=== PATIENT | female | born 1990 | race Caucasian/White ===

== ENCOUNTER 2024-05-05 20:46 | Emergency (ER) | payer BC, SELFPAY ==
--- NOTE | ~2024-05-05 | US_ITS ---
EXAMINATION: US OB <=14 wk fetus w TV INDICATION: indeterminant location; r/o ectopic TECHNIQUE: Sonography of the pelvis was performed by transabdominal and transvaginal techniques. COMPARISON: None. RESULT: Uterus: 8.2 x 4.4 x 5.9 cm. Anteverted. Complex fluid in the endometrial cavity at the right cornua. Fluid in the cervical canal likely representing blood. Homogenous myometrium. Intrauterine gestational sac: Not seen. Right ovary: 3.8 x 2.3 x 2.6 cm. Vascular flow is present. No adnexal mass. Left ovary: Left ovary not visualized. No adnexal mass. Pelvis free fluid: None. IMPRESSION: of unknown location. No sonographic evidence of ectopic . Complex endometrial fluid may represent hemorrhage with or without a very small gestational sac. Recommend continued clinical and sonographic follow-up. Reviewed, dictated and finalized at [facility] K. LOPMENT SYSTEM EFFICIENCY MANAGER
[2024-05-05 20:55] VITALS: BP 156/102; PULSE 93; RESP 14; TEMP 36.4; O2SAT 97
[2024-05-05 21:49] LABS: Basophils Absolute Auto 0.1 K/mm3 (0.0-0.1); Basophils Percent Auto 0.5 % (0.2-1.2); Eosinophils Absolute Auto 0.2 K/mm3 (0-0.3); Eosinophils Percent Auto 1.5 % (0-4.4); Hematocrit 40.4 % (37.0-47.0); Hemoglobin 13.1 g/dL (12.0-15.0); Immature Granulocyte Absolute 0.06 K/mm3 (0.00-0.031); Immature Granulocyte Percent A 0.4 % (0-0.5); Lymphocytes Absolute Auto 4.11 K/mm3 (0.9-3.2); Lymphocytes Percent Auto 26.3 % (18.3-44.2); Mean Corpuscular HGB Conc 32.4 g/dl (32-36); Mean Corpuscular Hemoglobin 28.1 pg (26-34); Mean Corpuscular Volume 86.5 fl (80-100); Mean Platelet Volume 9.9 fl (7.4-10.4); Monocytes Absolute Auto 1.3 K/mm3 (0.1-0.6); Monocytes Percent Auto 8.1 % (2.6-8.5); Neutrophils Absolute Auto 9.9 K/mm3 (1.3-6.7); Neutrophils Percent Auto 63.2 % (45.5-73.1); Platelet Count Result 271 k/mm3 (150-375); Red Blood Count 4.67 M/mm3 (4.2-5.4); Red Cell Distribution Width 16.6 % (11.5-14.5); White Blood Count 15.6 K/mm3 (4.5-10.0)
[2024-05-05] MEDS: Please add drug allergy info to patient profile. 1 EACH XX (21:49)
[2024-05-05] MEDS: ACETAMINOPHEN 500 MG TABLET 1000 MG PO (21:49)
[2024-05-05 21:51] LABS: BEDSIDEPREGUCG Positive (Negative)
[2024-05-05 21:53] LABS: Add Urine Microscopic? YES; Appearance Urine Clear (Clear); Bacteria Urine None Seen /hpf; Bilirubin Urine Negative (Negative); Blood Urine Negative (Negative); Color Urine Yellow (Yellow); Glucose Urine UA Negative (Negative); Ketones Urine Negative (Negative); Leukocyte Esterase Ur Trace LEU/UL (Negative); Nitrate Urine Negative (Negative); Non Pathogenic Casts 0-2; Protein Urine Negative (Negative); RBC Urine 0-2 /hpf (0-2); Specific Grav Ur 1.012 (1.001-1.035); Squamous Epithelial Cell Urine Occasional /hpf (Few); Urobilinogen Urine 0.2 mg/dL (<2.0); WBC Urine 0-5 /hpf (0-3)
[2024-05-05 22:00] LABS: INR 1.1; Prothrombin Time 14.6 Seconds (11.1-14.7)
[2024-05-05 22:01] LABS: Alanine Aminotransferase 20 U/L (6-35); Albumin Level 4.1 g/dL (3.5-5.1); Alkaline Phosphatase 51 U/L (38-126); Anion Gap 5 mmol/L (4-12); Aspartate Amino Transferase 23 U/L (14-36); Bilirubin,Total 0.2 mg/dL (0.2-1.3); Blood Urea Nitrogen 5 mg/dL (7-17); Calcium 8.9 mg/dL (8.4-10.2); Carbon Dioxide 27 mmol/L (22-30); Chloride 105 mmol/L (98-107); Estimated CRCL calculation 141 ml/min; Estimated Glomerular Filt Rate > 60; Glucose 207 mg/dL (65-110); Partial Thromboplastin Time 26.6 Seconds (22.3-36.8); Potassium 3.5 mmol/L (3.4-5.0); Sodium 137 mmol/L (137-145)
--- NOTE | 2024-05-05 22:11 | ED.ABDPAIN ---
HPI - Abdominal Pain General Chief Complaint: Abdominal Pain Stated Complaint: abd pain Time Seen by Provider: 05/05/24 21:28 Source: patient and other ( Friend) Mode of arrival: ambulatory Limitations: no limitations History of Present Illness HPI narrative: female who has last menstrual period was at the end of January/beginning of February (history of PCOS). she had presented to [facility] 2 weeks ago and beta hCG testing performed which was only slightly positive (49); no ultrasound evidence of IUP however. approximately 5:30 p.m. she started having pain below her umbilicus Somewhat acutely. She states it feels like period cramps and radiates down into her low abdomen /pelvis. Her OB Gyne is Dr. Her nava whom she is supposed to see on . She has a history of a hernia. She denies any vaginal bleeding or discharge. She has been nauseated and vomited twice with the last 1 occurring at 7:30 p.m.. No blood. Her last bowel movement was this morning and she denies any diarrhea, constipation, or bloody stool. She denies any dysuria or urgency but she has been having frequency. No hematuria. She denies any fevers but she does feel chilled although she states that this is chronic and she always feels cold. 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 HEAD: Normocephalic, atraumatic. EYES: Non injected, non icteric ENT: Nares clear, no rhinorrhea or epistaxis. NECK: Supple. CHEST: Speaking in full sentences. No respiratory distress. HEART: Regular rate and rhythm. . ABDOMEN: obese /protuberant but otherwise Soft, nondistended. no rigidity or guarding. Not peritoneal. EXTREMITIES: Normal range of motion. No lower extremity edema. SKIN: Warm, dry, no rash. NEURO: No focal deficits. Alert and oriented x3. PSYCH: Normal mood and affect. Course Vital Signs Vital signs: Vital Signs Temperature 97.5 F L 05/05/24 20:55 Pulse Rate 93 05/05/24 20:55 Respiratory Rate 14 05/05/24 20:55 Blood Pressure 156/102 H 05/05/24 20:55 Pulse Oximetry 97 05/05/24 20:55 Oxygen Delivery Room Air 05/05/24 20:55 Temperature 97.5 F L 05/05/24 20:55 Pulse Rate 74 05/05/24 22:59 Respiratory Rate 14 05/05/24 22:59 Blood Pressure 133/92 H 05/05/24 22:59 Pulse Oximetry 100 05/05/24 22:59 Oxygen Delivery Room Air 05/05/24 20:55 MDM - Abdominal Pain MDM Narrative Medical decision making narrative: This is a 33 yo patient with LMP end of Jan/beginning of February presenting with sudden onset crampy abdominal pain. Associated with nausea and vomiting. In the emergency department she is afebrile with vital signs notable for hypertension. Differential diagnosis Considered ectopic , spectrum of miscarriage/ (threatened, inevitable, incomplete, complete, septic) as well as causes of female-specific abdominal pain unrelated to (e.g., pelvic inflammatory disease with or without tubo-ovarian abscess, Bapo-Nlpk-Duqvde, UTI, ovarian torsion, etc.). Also considered causes of abdominal pain that are not gender-specific (e.g., appendicitis, volvulus, small bowel obstruction, mesenteric adenitis, nephrolithiasis, acute cholecystitis/choledocholithiasis and other biliary pathology, etc.). Patient well-appearing with relatively normal vital signs. Abdomen otherwise soft and nonperitonitic. Will give her 1g Tylenol and f/u on CBC and CMP. Her workup did show a white count. No electrolyte abnormalities. No e/o renal injury. UA without evidence of infection or stone. Hyperglycemia without anion gap or acidosis. For consideration of ectopic , the quantitative beta hCG was above the discriminatory zone of 1,500 mIU/mL. Ultrasound demonstrated neither clear ectopic nor identifiable intrauterine . On reassessment, the patient appears well, and reports feeling better after 1g Tylenol. Her vitals remained stable. My suspicion for acute abdomen is quite low and she was given strict return precautions for vaginal bleeding or discharge, dysuria, hematuria, fever (temperature above 100.4F) or chills, lightheadedness/syncope, intractable n/v, inability to tolerate PO, intractable pain. She will f/u with her OBGYN at her already scheduled appointment Saturday (<48 hours) and will be given a prescription for Tylenol and Colace as well as doxylamine for nausea. All other questions answered, patient is amenable to plan. Lab Data Attestation: I reviewed the patient's lab results. Lab results narrative: Leukocytosis 05/05/24 21:42 05/05/24 21:42 Labs: Lab Results 05/05/24 05/05/24 Range/Units 21:42 21:49 WBC 15.6 H (4.5-10.0) K/mm3 RBC 4.67 (4.2-5.4) M/mm3 Hgb 13.1 (12.0-15.0) g/dL Hct 40.4 (37.0-47.0) % MCV 86.5 (80-100) fl MCH 28.1 (26-34) pg MCHC 32.4 (32-36) g/dl RDW 16.6 H (11.5-14.5) % Plt Count 271 (150-375) k/mm3 MPV 9.9 (7.4-10.4) fl Immature Gran % (Auto) 0.4 (0-0.5) % Neut % (Auto) 63.2 (45.5-73.1) % Lymph % (Auto) 26.3 (18.3-44.2) % [place] % (Auto) 8.1 (2.6-8.5) % Eos % (Auto) 1.5 (0-4.4) % Baso % (Auto) 0.5 (0.2-1.2) % Lymph # (Auto) 4.11 H (0.9-3.2) K/mm3 [place] # (Auto) 1.3 H (0.1-0.6) K/mm3 Eos # (Auto) 0.2 (0-0.3) K/mm3 Baso # (Auto) 0.1 (0.0-0.1) K/mm3 Abs Immat Gran (auto) 0.06 H (0.00-0.031) K/mm3 Absolute Neuts (auto) 9.9 H (1.3-6.7) K/mm3 Absolute Nucleated RBC 0.000 (0.0-0.012) K/mm3 Nucleated RBC % 0.0 (0.0-0.2) % PT 14.6 (11.1-14.7) Seconds INR 1.1 APTT 26.6 (22.3-36.8) Seconds Sodium 137 (137-145) mmol/L Potassium 3.5 (3.4-5.0) mmol/L Chloride 105 (98-107) mmol/L Carbon Dioxide 27 (22-30) mmol/L Anion Gap 5 (4-12) mmol/L BUN 5 L (7-17) mg/dL Creatinine 0.60 L (0.7-1.0) mg/dL Estim Creat Clear Calc 141 ml/min Estimated GFR > 60 (59 - ) Glucose 207 H (65-110) mg/dL Calcium 8.9 (8.4-10.2) mg/dL Total Bilirubin 0.2 (0.2-1.3) mg/dL AST 23 (14-36) U/L ALT 20 (6-35) U/L Alkaline Phosphatase 51 (38-126) U/L Total Protein 7.0 (6.3-8.2) g/dL Albumin 4.1 (3.5-5.1) g/dL Beta HCG, Quant 68154.00 mIU/ML Urine Color Yellow (Yellow) Urine Appearance Clear (Clear) Urine pH 6.0 (5.0-9.0) Ur Specific [place] 1.012 (1.001-1.035) Urine Protein Negative (Negative) mg/dL Urine Glucose (UA) Negative (Negative) mg/dL Urine Ketones Negative (Negative) mg/dL Ur Blood (Man) Negative (Negative) Urine Nitrate Negative (Negative) Urine Bilirubin Negative (Negative) Urine Urobilinogen 0.2 (<2.0) mg/dL Leukocyte Esterase Rfl Trace H (Negative) WILLIAM/UL Urine RBC 0-2 (0-2) /hpf Urine WBC 0-5 (0-3) /hpf Ur Squamous Epith Cells Occasional (Few) /hpf Urine Bacteria None seen /hpf Urine Casts 0-2 POC Urine HCG, Qual Positive (Negative) Imaging Data Radiologist's impression: ITS Impressions Obstetrics Ultrasound 05/05/24 23:32 IMPRESSION: of unknown location. No sonographic evidence of ectopic . Complex endometrial fluid may represent hemorrhage with or without a very small gestational sac. Recommend continued clinical and sonographic follow-up. Discharge Plan Discharge Clinical Impression: Abdominal pain during , Leukocytosis, Hyperglycemia, of unknown anatomic location, Nausea/vomiting in Patient Disposition: Home, Self-Care Condition: Stable Instructions: Antibiotic Form, Nausea and Vomiting in (ED), Leukocytosis (ED), Nondiabetic Hyperglycemia (ED), Abdominal Pain in (ED) Additional Instructions: As we discussed, this remains a of indeterminate/unknown location. Keep your appointment with Dr Pollard. Your beta HCG today was 31398. Return to the ED if vaginal bleeding or discharge, burning/pain with urination, blood in your urine, fever (temperature above 100.4F), lightheadedness/fainting, intractable nausea/vomiting, inability to tolerate fluids, or intractable pain not responding to acetaminophen/Tylenol (maximum 4000mg/day). You can take the Doxil a mean/pyridoxine if she continued to have nausea and vomiting and use the Colace for constipation. Continue to take her vitamin. Patient Language: Micronesian Prescriptions: New acetaminophen 500 mg capsule 1,000 mg PO Q6H PRN (Reason: pain) Qty: 30 0RF docusate sodium [Colace] 100 mg capsule 100 mg PO DAILY PRN (Reason: constipation) Qty: 30 0RF doxylamine-pyridoxine (vit B6) 10-10 mg tablet,delayed release (DR/EC) 1 tablet PO DAILY PRN (Reason: nausea and vomiting) Qty: 10 0RF Follow-up/Referrals: [facility] [Other] UNKNOWN,DOCTOR [Primary Care Provider] - Stand Alone Forms: Work/School Release IP Time of Disposition: 00:15
[2024-05-05] MEDS: ONDANSETRON INJ 4 MG/2 ML VIAL IV PUSH (22:56)
[2024-05-05 22:59] VITALS: BP 133/92; PULSE 74; RESP 14; O2SAT 100
== END 2024-05-06 00:30 | disposition home or self-care (01) ==
PROVIDERS: Emergency Provider Student in an Organized Health Care Education/Training Program
DX: O26.899 Other specified pregnancy related conditions, unspecified trimester (principal); R10.9 Unspecified abdominal pain; O21.0 Mild hyperemesis gravidarum
CPT/HCPCS: 36415; 76801; 76817; 80053; 81001; 81025; 84702; 85025; 85610; 85730; 96374; 99284; A9270; J2405

== ENCOUNTER 2024-05-07 15:19 | Outpatient (CLI) | payer BC, SELFPAY | END 2024-05-07 15:20 | disposition home or self-care (01) | LOC: ANHLAB 15:21 | PROVIDERS: Visit Provider Student in an Organized Health Care Education/Training Program | DX: O36.80X0 Pregnancy with inconclusive fetal viability, not applicable or unspecified (principal); Z3A.00 Weeks of gestation of pregnancy not specified | CPT/HCPCS: 36415; 84702 ==

== ENCOUNTER 2024-05-13 15:10 | Outpatient (CLI) | payer BC, SELFPAY ==
--- NOTE | ~2024-05-13 | US_ITS ---
EXAMINATION: US OB <=14 wk fetus w TV DATE: 05/13/2024 15:54 INDICATION: Irregular periods with indeterminate last menstrual period. TECHNIQUE: Real-time pelvic ultrasound utilizing both a transvaginal and transabdominal probe was pe rformed. The interpreting radiologist was not present for the study. COMPARISON: 05/05/2024 FINDINGS: The uterus measures 9.0 x 5.3 x 9.8 cm. There is an intrauterine gestational sac. A yolk sac and fet al pole are identified. The crown rump length measures 9 mm, which correlates with an estimated gesta tional age of 6 weeks and 6 days. heart motion is identified measuring 137 beats per minute (bp m) by M-mode Doppler. Small hypoechoic subchorionic hematoma measuring 13 x 8 x 6 mm. The right ovary measures 2.7 x 2.5 x 2.3 cm. After flow identified in the right ovary on color Dopple r. The left ovary is not visualized. There is no free fluid in the pelvis. IMPRESSION: 1. Single living fetus with heart rate of 137 bpm. 2. Gestational age by ultrasound of 6 weeks 6 day(s) +/- 4 day(s) with ultrasound estimated date of delivery (JOHANA) of 12/31/2024. Reviewed, dictated and finalized at location A. LITY DESIGNER IMPRESSION: 1. Single living fetus with heart rate of 137 bpm. 2. Gestational age by ultrasound of 6 weeks 6 day(s) +/- 4 day(s) with ultraso und estimated date of delivery (JOHANA) of 12/31/2024.
== END 2024-05-13 15:11 | disposition home or self-care (01) ==
PROVIDERS: PCP Student in an Organized Health Care Education/Training Program; Visit Provider Student in an Organized Health Care Education/Training Program
DX: N92.6 Irregular menstruation, unspecified (principal); Z3A.01 Less than 8 weeks gestation of pregnancy
CPT/HCPCS: 76801; 76817

== ENCOUNTER 2024-06-07 00:33 | Emergency (ER) | payer BC, SELFPAY ==
[2024-06-07 00:37] VITALS: BP 153/96; PULSE 94; RESP 20; TEMP 36.6; O2SAT 100
--- NOTE | 2024-06-07 01:26 | PC.NURSE ---
Patient comes to this RN as this RN was obtaining VS on another patient. Patient asking how long the wait is. This RN informed patient that wait times are unable to be given but she was triaged and patients go back based on acuity. patient stated I am just going to go to [place], I can't wait that long. Patient left ED before risks of leaving before being evaluated by a provider and benefits of staying for evaluation could be given. patient and her visitor left ED with a steady gait, marked as left without being seen, triaged.
== END 2024-06-07 01:30 | disposition left against medical advice (07) ==
LOC: ANHED 02:08
PROVIDERS: Emergency Provider Physician Assistant; PCP Student in an Organized Health Care Education/Training Program
DX: N93.9 Abnormal uterine and vaginal bleeding, unspecified (principal)
CPT/HCPCS: 99199

== ENCOUNTER 2024-06-09 08:54 | Emergency (ER) | payer OTHER, BC, SELFPAY ==
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
[2024-06-09 08:56] VITALS: BP 152/84; PULSE 91; RESP 16; TEMP 36.6; O2SAT 100
[2024-06-09 09:13] LABS: Basophils Absolute Auto 0.1 K/mm3 (0.0-0.1); Basophils Percent Auto 0.6 % (0.2-1.2); Eosinophils Absolute Auto 0.2 K/mm3 (0-0.3); Eosinophils Percent Auto 1.8 % (0-4.4); Hematocrit 41.3 % (37.0-47.0); Hemoglobin 13.9 g/dL (12.0-15.0); Immature Granulocyte Absolute 0.04 K/mm3 (0.00-0.031); Immature Granulocyte Percent A 0.3 % (0-0.5); Lymphocytes Absolute Auto 2.43 K/mm3 (0.9-3.2); Lymphocytes Percent Auto 21.1 % (18.3-44.2); Mean Corpuscular HGB Conc 33.7 g/dl (32-36); Mean Corpuscular Hemoglobin 29.3 pg (26-34); Mean Corpuscular Volume 86.9 fl (80-100); Mean Platelet Volume 9.9 fl (7.4-10.4); Monocytes Absolute Auto 0.9 K/mm3 (0.1-0.6); Monocytes Percent Auto 7.7 % (2.6-8.5); Neutrophils Absolute Auto 7.9 K/mm3 (1.3-6.7); Neutrophils Percent Auto 68.5 % (45.5-73.1); Platelet Count Result 261 k/mm3 (150-375); Red Blood Count 4.75 M/mm3 (4.2-5.4); Red Cell Distribution Width 15.9 % (11.5-14.5); White Blood Count 11.5 K/mm3 (4.5-10.0)
[2024-06-09 09:25] LABS: Prothrombin Time 13.8 Seconds (11.1-14.7)
[2024-06-09 09:26] LABS: Partial Thromboplastin Time 25.6 Seconds (22.3-36.8)
[2024-06-09 09:29] LABS: Alanine Aminotransferase 18 U/L (6-35); Albumin Level 3.8 g/dL (3.5-5.1); Alkaline Phosphatase 51 U/L (38-126); Anion Gap 9 mmol/L (4-12); Aspartate Amino Transferase 19 U/L (14-36); Bilirubin,Total 0.4 mg/dL (0.2-1.3); Blood Urea Nitrogen 5 mg/dL (7-17); Calcium 8.9 mg/dL (8.4-10.2); Carbon Dioxide 22 mmol/L (22-30); Chloride 106 mmol/L (98-107); Estimated CRCL calculation 180 ml/min; Estimated Glomerular Filt Rate > 60; Glucose 163 mg/dL (65-110); Potassium 3.7 mmol/L (3.4-5.0); Sodium 137 mmol/L (137-145)
--- NOTE | 2024-06-09 09:30 | ECG_ITS ---
Test Date: 2024-06-09 09:42:30 Measurements Intervals [place] Rate: 81 P: 16 SC: 156 QRS: 5 QRSD: 93 T: 6 QT: 361 QTc: 419 Interpretive Statements SINUS RHYTHM No previous ECG available for comparison Electronically Signed On 06-09-2024 15:24:37 GAS APPLIANCE SERVICER by Ruth Camarena M.D.
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
[2024-06-09 10:06] LABS: Troponin I < 0.012 ng/mL (0.000-0.034)
[2024-06-09 10:22] VITALS: BP 153/96; PULSE 78; RESP 18; O2SAT 99
[2024-06-09] MEDS: ACETAMINOPHEN 500 MG TABLET 1000 MG PO (11:27)
[2024-06-09] MEDS: SODIUM CHLORIDE 0.9% IV 1,000 ML 999 ML IV CONT (11:27)
[2024-06-09 12:09] VITALS: BP 139/94; PULSE 80; RESP 17; O2SAT 100
== END 2024-06-09 13:04 | disposition home or self-care (01) ==
PROVIDERS: Emergency Medicine; Emergency Provider Physician Assistant; PCP Student in an Organized Health Care Education/Training Program
DX: R07.89 Other chest pain (principal); O99.331 Smoking (tobacco) complicating pregnancy, first trimester; F17.290 Nicotine dependence, other tobacco product, uncomplicated; Z3A.11 11 weeks gestation of pregnancy; V43.62XA Car passenger injured in collision with other type car in traffic accident, initial encounter
CPT/HCPCS: 36415; 71046; 76801; 80053; 84484; 84702; 85025; 85460; 85461; 85610; 85730; 86850; 86900; 86901; 93005; 96360; 99284; A9270; J7030

== ENCOUNTER 2024-06-16 07:28 | Outpatient (CLI) | payer BC, SELFPAY ==
--- OUTSIDE RECORDS SUMMARY | 2024-06-18 15:35 | XMS_ITS | Encounter Summary ---
Author Organization [facility] Address [address] [place] [address] Care Team Providers Care Dive Supervisor Name Role Phone Unknown, Provider Primary Care Provider Unavaila ble Reason for Visit * Reason Comments Diabetes Encounter Details Date Type Department Care Team (Latest Contact Info) Description 06/16/2024 10:20 AM BOILER ASSISTANT OPERATOR - 06/16/2024 11:59 PM BOILER ASSISTANT OPERATOR Hospital Encounter [facility] Women's Health Maternal & Care [address] [place] [address] Stu Gonzalez MD [address] [facility] [address] [place] [address] Discharge Disposition: Home or Self Care Social History Tobacco Use Types Packs/Day Years Used Date Smoking Tobacco: Never Assessed Estimated Date of Delivery Comme nts Yes 12/31/2024 Based on Ultraso und Sex and Gender Information Value Date Recorded Sex Assigned at Not on file Gender Identity Not on file Sexual Orientation Not on file documented as of this encounter Last Filed Vital Signs Vital Sign Reading Time Taken Comments Blood Pressure 138/87 06/16/2024 10:40 AM BOILER ASSISTANT OPERATOR Pulse 87 06/16/2024 10:40 AM BOILER ASSISTANT OPERATOR Temperature - - Respiratory Rate 18 06/16/2024 10:40 AM BOILER ASSISTANT OPERATOR Oxygen Saturation - - Inhaled Oxygen Concentration - - Weight 112 kg (247 lb) 06/16/2024 10:40 AM BOILER ASSISTANT OPERATOR Height - - Body Mass Index - - documented in this encounter Medications at Time of Discharge Medication Sig Dispensed Refills Start Date End Date blood glucose (OneTouch Verio) test stripIndications:Pre-exi sting type 2 diabetes mellitus during in first trimester (HCC) Use test strip to check Blood glucose four times daily. Check fasting glucose, and then one hour after each meal for breakfast, lunch, and dinner. 150 strip 10 06/16/2024 Lancets (ONETOUCH DELICA PLUS 33G EXTRA FINE LANCET)Indications:Pre-e xisting type 2 diabetes mellitus during in first trimester (HCC) Use lancet to check Blood glucose four times daily. Check fasting glucose, and then one hour after each meal for breakfast, lunch, and dinner. 150 Each 5 06/16/2024 NIFEdipine CR 24hr (Adalat CC) 30 MG tablet Take 1 (one) tablet by mouth once daily 06/10/2024 Vit-Fe Fumarate-FA ( VITAMIN PO) Take 1 tablet by mouth once daily documented as of this encounter Progress Notes * Nakia Johnson RN - 06/16/2024 11:46 AM CST Pt here for CDE visit. Pt reports feeling flutters of movement. Pt denies feeling contractions, or cramping. Denies loss of fluid, epigastric pain or unrelieved headaches. No edema noted at this time. Pt reports she has had some vaginal bleeding and she was seen in the ER and told she has asubchorionic hemorrhage. Pt's next OB visit is 06/30/24 Fht's per US - 166. Reviewed home meds with pt., pt states she is not checking her glucose and she has no logs. Pt reports that her hgbA1c was 4, but her recent lab draw on 06/10 her Hgb A1C was 6.8. Will try to obtain the lab results. ALEC Thompson in room to see pt. See CDE note. Pt has appt to follow up at this office on 06/30/24 Susie Pena - 06/16/2024 11:44 AM CST Haley Brambila is a 33 year old 11w5d Estimated Date of Delivery: 12/31/24 Patient seen today for Initial Diabetes Self-Management Education (DSME). She is a Co-Management consult from Dr. Deedee [facility]. Fetus: unknown History of Diabetes: Type 2 DM. Had been on Victoza for weight loss and lost over 60 lbs. A1c was ranging in the 4s. [place] in the summer of 2023 and stopped Victoza- most recent A1c 6.8 at OB 06/10/24. Does not have meter and has not been checking glucoses. 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 Live3s with SO and his parents. Insurance: [facility] Dietary Habits:continue to limit portions. Does eat dinner about an hour before bed each night. Physical Activity: walking around the office a lot as she is doing paperwork and making frequent trips to printer and back for light duty. Weight:247.2 lbs today Provided Verio meter and reviewed usage. Educated on insulin usage- Per Dr Gonzalez, send in logs with QID testing later this week to assess ifinsulin start is necessary. Knowledge/Skills presented: DM/GDM definition, physiology, increasing insulin resistance and requirement in , Importance and rationale of euglycemia in Blood glucose testing times, target values Hyperglycemia and hypoglycemia causes, symptoms, precautions and treatment Glucometer use- provided meter to patient. How to keep accurate records of blood glucose and food Food and BG logsheets were provided with clinic contact numbers Factors that affect blood glucose levels- food, activity, insulin type/amount, stress/illness Sources of CHO versus non-CHO; portion sizes; number of servings per meal; plate method; label reading; importance of eating 3 meals and 2-3 snacks Foods to avoid: juice, soda, cereal in the morning, sweets Insulin usage Sharps disposal Exercise benefits, guidelines and precautions. Instructed to begin 30 minutes walking daily if not contraindicated Ongoing follow up to reinforce and expand DSME Receptive to teaching and understanding of instructions: yes Plan: Test blood glucose fasting and 1 hour after each meal Keep detailed records of blood glucose, food, and exercise RTC for appointment [facility] 06/30/24 Send glucose logs on Monday 06/19 to bring to DM review and assess insulin needs if needed. Answered patient's questions. Patient states understanding of instructions provided. SUPPLIES: Diabetes and Manual Log sheets and contact information Glucometer: One Touch Verio Flex provided in clinic Glucometer strips and appropriate lancets to monitor QID, refill X5 Instructed to call if any problems obtaining glucometer supplies, medications or adhering to diabetes treatment plan. ER ASSISTANT OPERATOR documented in this encounter Plan of Treatment Upcoming Encounters Date Type Department Care Team (Late st Contact Info) Description 06/30/2024 8:15 AM BOILER ASSISTANT OPERATOR Appointment [facility] Maternal & Care [address] [place] [address] 06/30/2024 9:00 AM BOILER ASSISTANT OPERATOR Appointment [facility] Maternal & Care [address] [place] [address] 06/30/2024 9:45 AM BOILER ASSISTANT OPERATOR Appointment [facility] Maternal & Care [address] [place] [address] documented as of this encounter Visit Diagnoses Diagnosis Primigravida, antepartum (HCC)- Primary Type 2 diabetes mellitus without complication, unspecified whether terminal makeup operator insulin use (HCC) Chronic hypertension affecting (HCC) Obesity in (HCC) Obesity complicating , childbirth, or the puerperium, unspecified as to episode of care or not applicable BMI 40.0-44.9, adult (HCC) Body Mass Index 40.0-44.9, adult History of PCOS Personal history of other genital system and obstetric disorders 11 weeks gestation of (HCC) state, incidental Pre-existing type 2 diabetes mellitus during in first trimester (HCC) documented in this encounter Care Teams Dive Supervisor Relationship Specialty Start Date End Date Unknown, Provider PCP - General 06/16/24 documented as of this encounter
--- OUTSIDE RECORDS SUMMARY | 2024-06-18 15:35 | XMS_ITS | Encounter Summary ---
Author Organization [facility] Address [address] [place] [address]. [place], [place] [id number] [place] [id number] Care Team Providers Care Terrapin Fisher Name Role Phone Shital Mancini Primary Care Provider Unav ailable Kareem Domingo MD Primary Care Provider [phone] Kareem Domingo MD Primary Care Provider [phone] Shital Mancini Unavailable UnavailKareem Mata MD Unavailable [phone] Shital Mancini Unavailable UnavailKareem Mata MD Primary Care Provider [phone] Encounter Details Date Type Department Care Team (Late st Contact Info) Description 11/23/2019 MyChart Message Enc [address] [address] [facility] [place], [place] [id number] Shital Mancini FNP RE: Other Social History Tobacco Use Types Packs/Day Years Used Date Smoking Tobacco: Heavy Smoker Cigarettes 0.5 10 Smokeless Tobacco: Current Alcohol Use Standard Drinks/Week Comments Yes 0 (1 standard drink = 0.6 oz pur e alcohol) occasionally PHQ-2 Answer Date Recorded PHQ-2 Score 0 04/24/2019 Comments No Sex and Gender Information Value Date Recorded Sex Assigned at Female 06/13/2024 1:51 PM CHEMIC MANGLER Legal Sex Female 9:32 PM CDT Gender Identity Not on file Sexual Orientation Not on file documented as of this encounter Plan of Treatment Not on file documented as of this encounter Visit Diagnoses Not on filedocumented in this encounter Additional Health Concerns Infection Onset Date Last Indicated Resolved Time COVID-19 Rule Out 05/09/2022 05/09/2022 05/09/2022 2:58 PM CHEMIC MANGLER COVID-19 Rule Out 10/06/2023 10/06/2023 10/06/2023 2:17 PM CDT documented as of this encounter Care Teams Terrapin Fisher Relationship Specialty Start Date End Date Shital Mancini FNP PCP - General FAMILY PRACTICE 03/12/18 02/14/21 Kareem Domingo MD [address] [place] [id number] PCP - [facility] PRACTICE 02/15/21 03/19/21 Kareem Domingo MD [address] [place] [address] PCP - General FAMILY PRACTICE 03/20/21 04/19/24 Kareem Domingo MD [address] [place] [address] PCP - General FAMILY PRACTICE 04/20/24 Shital Mancini FNP [facility] PR[facility] 02/15/21 03/19/21 Kareem Domingo MD [address] [place] [id number] FAMILY PRACTICE 03/20/21 04/19/24 Shital Mancini FNP 03/12/18 03/19/21 documented as of this encounter
--- OUTSIDE RECORDS SUMMARY | 2024-06-18 15:35 | XMS_ITS | Clinical Summary ---
Author Organization [facility] Address [address] [place] [address] Phone Care Team Providers Care Bow Maker Gift Wrapping Name Role Phone Kareem Domingo MD Primary Care Provider [phone] Allergies Active Allergy Reactions Criticality Noted Date Comments Naproxen Hives 08/04/2023 Ketorolac Tromethamine Hives 08/04/2023 Tramadol Hives 08/04/2023 Social History Tobacco Use Types Packs/Day Years Used Date Smoking Tobacco: Every Day Cigarettes Smokeless Tobacco: Never Tobacco Cessation:Ready to Q uit: Not Asked; Counseling Given: Not Answered Comments No Sex and Gender Information Value Date Recorded Sex Assigned at Not on file Legal Sex Female 12:36 AM SALES REPRESENTATIVE ADVERTISING Gender Identity Not on file Sexual Orientation Not on file Last Filed Vital Signs Vital Sign Reading Time Taken Comments Blood Pressure 154/87 08/04/2023 4:08 AM CDT Pulse 96 08/04/2023 12:44 AM SALES REPRESENTATIVE ADVERTISING Temperature 36.2 ??C (97.2 ??F) 08/04/2023 12:[address] Respiratory Rate 18 08/04/2023 12:44 AM SALES REPRESENTATIVE ADVERTISING Oxygen Saturation 97% 08/04/2023 12:44 AM SALES REPRESENTATIVE ADVERTISING Inhaled Oxygen Concentration - - Weight 111.1 kg (245 lb) 08/04/2023 12:44 AM SALES REPRESENTATIVE ADVERTISING Height 167.6 cm (5' 6 ) 08/04/2023 12:44 AM SALES REPRESENTATIVE ADVERTISING Body Mass Index 39.54 08/04/2023 12:44 AM SALES REPRESENTATIVE ADVERTISING Plan of Treatment Health Maintenance Due Date Last Done Comments Hepatitis C Virus (HCV) Screening 1990 Pneumococcal Immunization Combined (1 of 2 - PCV) 2009 Pap Smear 12/05/2011 Cervical Cancer Screening (CCS) 2020 HPV/Cotest 2020 Influenza Immunization (#1) 2024 SARS-COV-2 Immunization ( season) 2024 06/16/2020, 05/18/2020 Respiratory Syncytial Virus (RSV) Immunization (Adult) (1 - 1-dose 75+ series) 2065 Hepatitis B Immunization Completed 002, 05/13/2001, 04/10/2001 DTaP/Tdap/Td Immunization Discontinued 2021, 03/05/1996, 12/06/1992, Additional history exists TdaP Immunization Completed 03/24/2022 Meningococcal Immunization (ACWY) Aged Out No longer eligible based on patient's age to complete this topic Rotavirus Immunization Aged Out No lo nger eligible based on patient's age to complete this topic Insurance [facility] Care Teams Bow Maker Gift Wrapping Relationship Specialty Start Date End Date Kareem Domingo MD [address] [place] [address] PCP - General Family Medicine 08/04/23
--- OUTSIDE RECORDS SUMMARY | 2024-06-18 15:35 | XMS_ITS | Referral Summary ---
Author Organization [facility] Address [address] [place] [address] Care Team Providers Care Welding Machine Operator Electro Gas Name Role Phone Unknown, Provider Primary Care Provider Unavaila ble Source Comments [facility],non-owned Affiliates and Associated Physician Practices is amultiple site organization consisting of ambulatory clinics and hospital sitesin [place], [place], [place] and [place]. This disclosure is being madepursuant to the Care Everywhere program and may not contain all information available regarding this patient. Last updated 18.[facility] Encounters Date Type Department Care Team Description 06/16/2024 10:20 AM BEFORE AND AFTER SCHOOL DAYCARE WORKER - 06/16/2024 11:59 PM BEFORE AND AFTER SCHOOL DAYCARE WORKER Hospital Encounter [facility] Women's Health Maternal & Care [address] [place] [address] Stu Gonzalez MD Discharge Disposition: Home or Self Care from Last 3 Months Allergies Active Allergy Reactions Criticality Noted Date Comments Blackberry Flavor Unknown 06/12/2024 Naproxen Rash Medium 06/12/2024 Toradol Rash,Vomiting Medium 06/12/2024 Tramadol Vomiting 06/12/2024 Medications * Be aware that medications may not be up to date on this document. Alwaysverify current medications with the patient. Medication Sig Dispensed Refills Start Date End Date Status NIFEdipine CR 24hr (Adalat CC) 30 MG tablet Take 1 (one) tablet by mouth once daily 06/10/2024 Active Vit-Fe Fumarate-FA ( VITAMIN PO) Take 1 tablet by mouth once daily Active blood glucose (OneTouch Verio) test stripIndications:Pre- existing type 2 diabetes mellitus during in first trimester (HCC) Use test strip to check Blood glucose four times daily. Check fasting glucose, and then one hour after each meal for breakfast, lunch, and dinner. 150 strip 10 06/16/2024 Active Lancets (ONETOUCH DELICA PLUS 33G EXTRA FINE LANCET)Indications:Pr e-existing type 2 diabetes mellitus during in first trimester (HCC) Use lancet to check Blood glucose four times daily. Check fasting glucose, and then one hour after each meal for breakfast, lunch, and dinner. 150 Each 5 06/16/2024 Active Social History Tobacco Use Types Packs/Day Years [...] Comments Blood Pressure 138/87 06/16/2024 10:40 AM BEFORE AND AFTER SCHOOL DAYCARE WORKER Pulse 87 06/16/2024 10:40 AM BEFORE AND AFTER SCHOOL DAYCARE WORKER Temperature - - Respiratory Rate 18 06/16/2024 10:40 AM BEFORE AND AFTER SCHOOL DAYCARE WORKER Oxygen Saturation - - Inhaled Oxygen Concentration - - Weight 112 kg (247 lb) 06/16/2024 10:40 AM BEFORE AND AFTER SCHOOL DAYCARE WORKER Height - - Body Mass Index - - Plan of Treatment Upcoming Encounters Date Type Department Care Team (Late st Contact Info) Description 06/30/2024 8:15 AM BEFORE AND AFTER SCHOOL DAYCARE WORKER Appointment [facility] Maternal & Care [facility] [place] [address] 06/30/2024 9:00 AM BEFORE AND AFTER SCHOOL DAYCARE WORKER Appointment [facility] Maternal & Care [address] [place] [address] 06/30/2024 9:45 AM BEFORE AND AFTER SCHOOL DAYCARE WORKER Appointment [facility] Maternal & Care [address] [place] [id number] Care Teams Welding Machine Operator Electro Gas Relationship Specialty Start Date End Date Unknown, Provider PCP - General 06/16/24
--- OUTSIDE RECORDS SUMMARY | 2024-06-18 15:35 | XMS_ITS | Clinical Summary ---
Author Organization [facility] Address [address] [place] [address]. [place] [address] [place] [address] Care Team Providers Care Engine Monitor Name Role Phone Kareem Domingo MD Primary Care Provider [phone] Allergies Active Allergy Reactions Criticality Noted Date Comments Naproxen Rash,Nausea and Vomiting High 04/01/2018 Naproxen Rash High 02/15/2021 Raspberry Anaphylaxis High 02/20/2013 Strawberries Anaphylaxis High 02/20/2013 Ketorolac Tromethamine Nausea and Vomiting High 10/2017 Ketorolac Tromethamine Vomiting High 02/15/2021 Tramadol Nausea and Vomiting High 04/01/2018 Tramadol Vomiting High 02/15/2021 Medications Blood Glucose Monitoring Suppl (GHT BLOOD GLUCOSE MONITOR) w/Device Kit Inject 1 each into the skin daily. Check blood sugar daily and prn DX: E11.9 11/14/19 17 Active Lancets (STERILANCE TL) Misc Inject 1 Stick into the skin daily. Test blood sugars daily and as needed. 11/14/19 17 Active amLODIPine 5 MG tablet Take 1 tablet (5 mg total) by mouth daily. 30 tablet 08/07/19 21 Active metoprolol succinate ER 50 MG 24 hr tablet Take 1 tablet (50 mg total) by mouth daily. 30 tablet 08/07/19 21 Active VICTOZA 18 MG/3ML injection INJECT 0.6MG SUB Q ONCE DAILY 01/29/20 21 Active lisinopril-hydroCH LOROthiazide 20-25 MG tablet 02/10/20 21 Active topiramate (TOPAMAX) 25 MG tablet Take 1 tablet (25 mg total) by mouth 2 (two) times daily. 03/09/20 22 Active atorvastatin (LIPITOR) 40 MG tablet Take 40 mg by mouth daily. 02/04/20 22 Active albuterol (ACCUNEB) 1.25 MG/3ML nebulizer solution Take 3 mLs (1.25 mg total) by nebulization 3 (three) times daily as needed for Wheezing. 720 mL 04/07/20 23 Active valsartan-hydroCHL OROthiazide (DIOVAN-HCT) 160-12.5 MG tablet Take 1 tablet by mouth daily. 04/01/20 23 Active montelukast (SINGULAIR) 10 MG tablet Take 1 tablet (10 mg total) by mouth daily. 04/03/20 23 Active TRULICITY 4.5 MG/0.5ML injection (PEN) INJECT 4.5MG SUBCUTANEOUSLY ONCE A WEEK 04/03/20 23 Active albuterol sulfate HFA 108 (90 Base) MCG/ACT inhaler Inhale 2 puffs into the lungs every 6 (six) hours as needed. 6.7 g 10/06/19 24 Active ondansetron (ZOFRAN-ODT) 4 MG disintegrating tablet Take 1 tablet (4 mg total) by mouth every 8 (eight) hours as needed for Nausea. 20 tablet 10/29/19 24 Active HYDROcodone-acetam inophen (NORCO) 5-325 MG tabletIndications: Acute Pain < 7 Day Supply Take 1 tablet by mouth every 6 (six) hours as needed. Indications: Acute Pain < 7 Day Supply 8 tablet 01/24/20 24 Active valsartan (DIOVAN) 40 MG tablet Take 1 tablet (40 mg total) by mouth daily. Active Active Problems Problem Noted Date Diagnosed Date Tendonitis, Achilles, right 02/05/2019 Foreign body in right foot, initial encounter Morbid obesity due to excess calories ([facility] H HS/HCC) 06/02/2018 Allergic rhinitis, unspecifi ed seasonality, unspecified trigger 06/02/2018 Essential hypertension 04/01/2018 Type 2 diabetes mellitus ([facility] HHS/HCC) 04/01 Comments Yes Encounters Date Type Department Care Team Description 06/13/2024 1:24 PM SMOKE JUMPER - 06/13/2024 4:41 PM [facility] Emergency [facility] Emergency Room [address] [place] [id number] Akosua Olvera MD Vaginal Bleeding Discharge Disposition: Home or Self Care (Routine Discharge) 06/13/2024 Travel 06/07/2024 2:13 AM SMOKE JUMPER - 06/07/2024 5:14 AM [facility] Emergency [facility] Emergency Room [address] [place] [id number] Michael Sharp MD Vaginal Bleeding (Low abdominal cramps and low back pain for >24 hours. ) Discharge Disposition: Home or Self Care (Routine Discharge) 06/07/2024 Travel 05/08/2024 8:49 AM SMOKE JUMPER - 05/08/2024 11:36 AM [facility] Emergency [facility] [place] [address] Hue Puckett FNP Vaginal Bleeding Discharge Disposition: Home or Self Care (Routine Discharge) 05/08/2024 Travel 04/21/2024 1:44 AM SMOKE JUMPER - 04/21/2024 3:47 AM [facility] Emergency [facility] Emergency Room [address] [place] [id number] Brock Campbell DO Abdominal Pain Discharge Disposition: Home or Self Care (Routine Discharge) 04/21/2024 Travel 04/20/2024 8:53 PM SMOKE JUMPER - 04/21/2024 1:23 AM [facility] Emergency [facility] Emergency Room [address] [place] [address] Grant Reyes MD Flank Pain (Right sided - took 1,000 mg Tylenol at 1600, experiencing nausea; denies vomiting and diarrhea) Discharge Disposition: Other Facility with Planned Inpatient Readmission 04/20/2024 Travel from Last 3 Months Immunizations Name Administration Dates Next Due MODERNA COVID-19 (12+) MRNA, LNP-S, PF, 100 MCG/ 0.5 ML DOSE 06/16/2020,05/18/2020 Tdap (Boostrix) 03/24/2022 Social History Tobacco Use Types Packs/Day Years Used Date Smoking Tobacco: Every Day Cigarettes Smokeless Tobacco: Never Tobacco Cessation:Ready to Q uit: Not Asked; Counseling Given: Not Answered Alcohol Use Standard Drinks/Week Comments Not Currently 0 (1 standard drink = 0.6 oz pur e alcohol) occasionally PHQ-2 Answer Date Recorded PHQ-2 Score 0 04/24/2019 Comments Yes Sex and Gender Information Value Date Recorded Sex Assigned at Female 06/13/2024 1:51 PM SMOKE JUMPER Legal Sex Female 9:32 PM CDT Gender Identity Not on file Sexual Orientation Not on file Last Filed Vital Signs Vital Sign Reading Time Taken Comments Blood Pressure 150/90 06/13/2024 1:29 PM SMOKE JUMPER Pulse 100 06/13/2024 1:29 PM SMOKE JUMPER Temperature 36.1 ??C (97 ??F) 06/13/2024 1:29 PM SMOKE JUMPER Respiratory Rate 18 06/13/2024 1:29 PM SMOKE JUMPER Oxygen Saturation 98% 06/13/2024 1:29 PM SMOKE JUMPER Inhaled Oxygen Concentration - - Weight 110.2 kg (243 lb) 06/13/2024 1:29 PM SMOKE JUMPER Height 160 cm (5' 3 ) 06/13/2024 1:29 PM SMOKE JUMPER Body Mass Index 43.05 06/13/2024 1:29 PM SMOKE JUMPER Plan of Treatment Health Maintenance Due Date Last Done Comments Cervical Cancer Screening Pap Smear (Age 30 to 64) Every 3 Years 1990 Kidney Health Evaluation 1990 Annual Physical 1993 Pneumococcal Vaccine: Pediatrics (0 to 5 Years) and At-Risk Patients (6 to 64 Years) (1 of 2 - PCV) 1996 Diabetes: Retinopathy Eye Exam 2008 Hepatitis B Vaccines (1 of 3 - 19+ 3-dose series) 2009 Hemoglobin A1C 10/23/2019 04/24/2019, 02/26, 08/02/2017, Additional history exists Lipid Panel 04/24/2020 04/24/2019, 02/26, 12/01/2016, Additional history exists Cervical Cancer Screening Pap with HPV Testing (Age 30 to 64) Every 5 Years 2020 Cervical Cancer Screening with HPV 2020 COVID-19 Vaccine ( season) 2024 06/16/2020, 05/18/2020, 05/18/2020 Influenza Adult (#1) 2024 DTaP, Tdap and Td Vaccines (2 - Td or Tdap) 03/24/2032 03/24/2022, 03/05/1996, 12/06/1992, Additional history exists RSV Immunization or 60+ Years (1 - 1-dose 75+ series) 2065 Hepatitis C Completed 03/28/2015 HPV Vaccines Aged Out No longer eligi ble based on patient's age to complete this topic Meningococcal B Vaccine Aged Out No l onger eligible based on patient's age to complete this topic Meningococcal Vaccine Aged Out No charley raoul eligible based on patient's age to complete this topic RSV Immunizations Under 20 Months Aged Out No longer eligible based on patient's age to complete this topic Procedures Procedure Name Priority Date/Time Associated Diagnosis Comments US OB <14WKS TA STAT 06/13/2024 2:53 PM SMOKE JUMPER COMPREHENSIVE METABOLIC PANEL STAT 06/13/2024 1:45 PM SMOKE JUMPER CBC W/DIFF AUTOMATED STAT 06/13/2024 1:45 PM SMOKE JUMPER US OB <14WKS TA STAT 06/07/2024 4:47 AM SMOKE JUMPER HCG QUANT (SERUM)-CHORIONIC GONADOTROPIN STAT 06/07/2024 3:00 AM SMOKE JUMPER BASIC METABOLIC PANEL STAT 06/07/2024 3:00 AM SMOKE JUMPER CBC W/DIFF AUTOMATED STAT 06/07/2024 3:00 AM SMOKE JUMPER HC URINALYSIS AUTO W/O MICRO STAT 06/07/2024 2:28 AM SMOKE JUMPER US OB TRANSVAG STAT 05/08/2024 10:40 AM SMOKE JUMPER HCG QUANT (SERUM)-CHORIONIC GONADOTROPIN STAT 05/08/2024 8:59 AM SMOKE JUMPER HC BLOOD TYPING ABO STAT 05/08/2024 8 :56 AM SMOKE JUMPER COMPREHENSIVE METABOLIC PANEL STAT 05/08/2024 8:56 AM SMOKE JUMPER CBC W/DIFF AUTOMATED STAT 05/08/2024 8:56 AM SMOKE JUMPER HC URINALYSIS AUTO W/O MICRO STAT 05/08/2024 8:55 AM SMOKE JUMPER US OB TRANSVAG STAT 04/21/2024 3:[address] ABD+PEL W CON STAT 04/20/2024 11:2 7 PM SMOKE JUMPER HC BLOOD TYPING ABO STAT 04/20/2024 9 :18 PM SMOKE JUMPER HCG QUANT (SERUM)-CHORIONIC GONADOTROPIN STAT 04/20/2024 9:18 PM SMOKE JUMPER COMPREHENSIVE METABOLIC PANEL STAT 04/20/2024 9:18 PM SMOKE JUMPER CBC W/DIFF AUTOMATED STAT 04/20/2024 9:18 PM SMOKE JUMPER TEST URINE STAT 04/20/2024 9:01 PM SMOKE JUMPER URINALYSIS, AUTO, COMPLETE STAT 04/20/2024 9:01 PM SMOKE JUMPER LIPID PANEL Routine 04/24/2019 8:04 AM SMOKE JUMPER Essential hypertension Type 2 diabetes mellitus without complication, without long-term current use of insulin (CMS/HCC HHS/HCC) HEMOGLOBIN, GLYCOSYLATED Routine 04/24/2019 8:04 AM SMOKE JUMPER Type 2 diabetes mellitus without complication, without long-term current use of insulin (CMS/HCC HHS/HCC) HEPATITIS PANEL,ACUTE Routine 03/28/2015 9:43 AM SMOKE JUMPER from Last 3 Months or Most Recently Relevant to Health Maintenance Results * US OB <14WKS TA (06/13/2024 2:53 PM SMOKE JUMPER) Only the most recent of2 resultswithin the time period is included. Anatomical Region Laterality Modality Abdomen Ultrasound 06/13/2024 2:56 PM SMOKE JUMPER Impressions 06/13/2024 2:59 PM SMOKE JUMPER IMPRESSION: 1. ??Single live intrauterine with an estimated gestational age of ??11 weeks 6 days based on crown-rump length. 2. ??Small-volume subchorionic hemorrhage. 3. ??Normal sonographic appearance of the left ovary. ??Nonvisualization of the right ovary. Referred By: ?? Interpreted By: Roberto Mendiola MD, 06/13/2024 2:56 PM Narrative 06/13/2024 2:59 [place] [address] Examination: US OB TRANSVAG Indication: bleeding at 11 weeks Comparison: OB ultrasound 06/07/2024. Technique: Transabdominal ultrasound was performed of the pelvis. Transabdominal images provide a more complete overview of the pelvis, allowing visualization of anatomy and detection of pathology located beyond the field of view of transvaginal ultrasound. Transvaginal images provide superior resolution, facilitating improved characterization of pelvic structures and detection of pathology too small to be seen at transabdominal ultrasound. If both studies had not been performed, the likelihood of detecting and characterizing abnormalities relevant to the patients condition would have been substantially decreased. Findings: Uterus: * ??There is a single intrauterine . [place] rump length of 5.06 cm corresponds with an estimated gestational age of 11 weeks 6 days. ??LMP of 03/26/2024 corresponds with an estimated gestational age of 11 weeks 2 days. * ??Yolk sac is visualized. heart tones are present at 166 bpm. It is too early to evaluate placental location or measure amniotic fluid index. ??Small-volume subchorionic hemorrhage is seen. ??This measures approximately 1.9 x 0.8 x 1.7 cm. * ??Uterus measures 11.6 x 9.1 x 3.2 cm. Adnexa: * ??Right ovary is not visualized on the images provided are noted likely secondary to overlying bowel gas. * ??Left ovary is normal in appearance and demonstrates expected arterial and venous blood flow, measuring 4.4 x 3.1 x 2.9 cm. Other: * ??Bladder is partially decompressed and unremarkable. * ??There is no free fluid in the pelvis. Procedure Note Roberto Mendiola MD - 06/15/2024 [facility] [address] [place] [address] Examination: US OB TRANSVAG Indication: bleeding at 11 weeks Comparison: OB ultrasound 06/07/2024. Technique: Transabdominal ultrasound was performed of the pelvis.Transabdominal images provide a more complete overview of the pelvis,allowing visualization of anatomy and detection of pathology locatedbeyond the field of view of transvaginal ultrasound. Transvaginal imagesprovide superior resolution, facilitating improved characterization ofpelvic structures and detection of pathology too small to be seen attransabdominal ultrasound. If both studies had not been performed, thelikelihood of detecting and characterizing abnormalities relevant to thepatients condition would have been substantially decreased. Findings: Uterus: * There is a single intrauterine . [place] rump length of 5.06 cmcorresponds with an estimated gestational age of 11 weeks 6 days. LMP of03/26/2024 corresponds with an estimated gestational age of 11 weeks 2days. * Yolk sac is visualized. heart tones are present at 166 bpm. It istoo early to evaluate placental location or measure amniotic fluid index.Small-volume subchorionic hemorrhage is seen. This measures approximately1.9 x 0.8 x 1.7 cm. * Uterus measures 11.6 x 9.1 x 3.2 cm. Adnexa: * Right ovary is not visualized on the images provided are noted likelysecondary to overlying bowel gas. * Left ovary is normal in appearance and demonstrates expected arterialand venous blood flow, measuring 4.4 x 3.1 x 2.9 cm. Other: * Bladder is partially decompressed and unremarkable. * There is no free fluid in the pelvis. IMPRESSION: 1. Single live intrauterine with an estimated gestational ageof 11 weeks 6 days based on crown-rump length. 2. Small-volume subchorionic hemorrhage. 3. Normal sonographic appearance of the left ovary. Nonvisualization ofthe right ovary. Referred By: Interpreted By: Roberto Mendiola MD, 06/13/2024 2:56 PM us Akosua Olvera MD ULTRASOUND Final Result * (ABNORMAL) COMPREHENSIVE METABOLIC PANEL (06/13/2024 1:45 PM SMOKE JUMPER) Only the most recent of3 resultswithin the time period is included. GLUCOSE 103(H) 70 - 99 MG/DL 06/13/2024 2:35 PM SMOKE JUMPER [facility] BUN 7 7 - 18 MG/DL 06/13/2024 2:35 PM [facility] CREATININE S/P/B 0.70 0.55 - 1.02 MG/DL 06/13/2024 2:35 PM [facility] SODIUM S/P/B 138 136 - 145 MMOL/L 06/13/2024 2:35 PM [facility] POTASSIUM S/P/B 3.5 3.5 - 5.1 MMOL/L 06/13/2024 2:35 PM [facility] CHLORIDE S/P/B 102 100 - 108 MMOL/L 06/13/2024 2:35 PM [facility] CO2 22.3 21 - 32 MMOL/L 06/13/2024 2:35 PM [facility] CALCIUM S/P/B 8.7 8.5 - 10.1 MG/DL 06/13/2024 2:35 PM [facility] BILIRUBIN TOTAL S/P/B 0.3 0.2 - 1.2 MG/DL 06/13/2024 2:35 PM [facility] Comment: THIS ASSAY IS NOT RECOMMENDED FOR PATIENTS UNDERGOING TREATMENT WITH ELTROMBOPAG DUE TO THE POTENTIAL FOR FALSELY ELEVATED RESULTS. TOTAL PROTEIN S/P/B 7.1 6.4 - 8.2 G/DL 06/13/2024 2:35 PM [facility] ALBUMIN S/P/B 3.3(L) 3.4 - 5.0 G/DL 06/13/2024 2:35 PM [facility] AST 16 15 - 37 U/L 06/13/2024 2:35 PM [facility] ALT 19 14 - 55 U/L 06/13/2024 2:35 PM [facility] ALKALINE PHOSPHATASE S/P/B 45(L) 50 - 136 U/L 06/13/2024 2:35 PM [facility] ANION GAP 13.7 5 - 15 MMOL/L 06/13/2024 2:35 PM [facility] BUN CREATININE RATIO 10.0 6 - 26 06/13/2024 2:35 PM [facility] A/G RATIO 0.9(L) 1.0 - 2.0 RATIO 06/13/2024 2:35 PM [facility] GFR ESTIMATE >90 >90 ML/MIN/1.7 3 M2 06/13/2024 2:35 PM [facility] Comment: NOTE: eGFR is not calculated for patients <18 years of age. This is an estimated GFR calculation using the new CKD EPI creatinine equation without race and so does not require a correction factor for race. This estimated GFR should not be used for calculating drug doses. 06/13/2024 1:45 PM SMOKE JUMPER us Akosua Olvera MD LABORATORY Final Result [facility] [address] [place] [address], [place] [phone] * (ABNORMAL) CBC W/DIFF AUTOMATED (06/13/2024 1:45 PM SMOKE JUMPER) Only the most recent of4 resultswithin the time period is included. WBC 12.98(H) 4.50 - 11.00 x10'3/uL 06/13/2024 2:19 PM [facility] RBC 4.35 4.20 - 5.40 x10'6/uL 06/13/2024 2:19 PM [facility] HGB 12.9 12.0 - 16.0 G/DL 06/13/2024 2:19 PM [facility] HCT 37.7(L) 38.0 - 48.0 % 06/13/2024 2:19 PM [facility] MCV 86.7 81.0 - 99.0 FL 06/13/2024 2:19 PM [facility] MCH 29.7 27.0 - 31.0 PG 06/13/2024 2:19 PM [facility] MCHC 34.2 32.0 - 36.0 G/DL 06/13/2024 2:19 PM [facility] RDW 15.5(H) 11.5 - 14.5 % 06/13/2024 2:19 PM [facility] PLT 263 130 - 400 x10'3/uL 06/13/2024 2:19 PM [facility] MPV 10.2 9.3 - 12.2 FL 06/13/2024 2:19 PM [facility] CBC COMMENT AUTOMATED RBC MORPHOLOGY AND PLATELET EVALUATION NORMAL 06/13/2024 2:19 PM [facility] NEUTROPHILS % 63.7 % 06/13/2024 2:19 PM [facility] LYMPHOCYTES % 25.4 % 06/13/2024 2:19 PM [facility] MONOCYTES % 8.2 % 06/13/2024 2:19 PM [facility] EOSINOPHILS 1.8 % 06/13/2024 2:19 PM [facility] BASOPHILS 0.6 % 06/13/2024 2:19 PM [facility] IMMATURE GRANS % 0.3 % 06/13/19 2:19 PM [facility] NRBC % 0.0 % 06/13/2024 2:19 PM [facility] ABS. NEUTROPHILS TOTAL 8.26(H) 1.80 - 7.70 x10'3/uL 06/13/2024 2:19 PM [facility] ABS. LYMPHOCYTES 3.30 1.00 - 4.80 x10'3/uL 06/13/2024 2:19 PM [facility] ABS. MONOCYTES 1.07(H) 0.24 - 0.86 x10'3/uL 06/13/2024 2:19 PM [facility] ABS. EOSINOPHILS 0.23 0.04 - 0.36 x10'3/uL 06/13/2024 2:19 PM [facility] ABS. BASOPHILS 0.08 0.01 - 0.08 x10'3/uL 06/13/2024 2:19 PM [facility] ABS. IMMATURE GRANULOCYTES 0.04 0.00 - 0.49 x10'3/uL 06/13/2024 2:19 PM [facility] ABS. NUCLEATED RBC'S 0.00 0.00 - 0.01 x10'3/uL 06/13/2024 2:19 PM [facility] 06/13/2024 1:45 PM SMOKE JUMPER Akosua Olvera MD LABORATORY Final Result [facility] [address] [place] [address], [place] [phone] * (ABNORMAL) BASIC METABOLIC PANEL (06/07/2024 3:00 AM [facility]) [facility] GLUCOSE 165(H) 70 - 99 MG/DL 06/07/2024 3:52 AM [facility] BUN 9 7 - 18 MG/DL 06/07/2024 3:52 AM [facility] CREATININE S/P/B 0.44(L) 0.55 - 1.02 MG/DL 06/07/2024 3:52 AM [facility] SODIUM S/P/B 129(L) 136 - 145 MMOL/L 06/07/2024 3:52 AM [facility] POTASSIUM S/P/B 3.7 3.5 - 5.1 MMOL/L 06/07/2024 4:11 AM [facility] CHLORIDE S/P/B 102 100 - 108 MMOL/L 06/07/2024 3:52 AM [facility] CO2 21.5 21 - 32 MMOL/L 06/07/2024 3:52 AM [facility] CALCIUM S/P/B 8.7 8.5 - 10.1 MG/DL 06/07/2024 3:52 AM [facility] ANION GAP 5.5 5 - 15 MMOL/L 06/07/2024 3:52 AM [facility] BUN CREATININE RATIO 20.5 6 - 26 06/07/2024 3:52 AM [facility] GFR ESTIMATE >90 >90 ML/MIN/1.7 3 M2 06/07/2024 3:52 AM [facility] Comment: NOTE: eGFR is not calculated for patients <18 years of age or gender unknown. This is an estimated GFR calculation using the new CKD EPI creatinine equation without race and so does not require a correction factor for race. This estimated GFR should not be used for calculating drug doses. 06/07/2024 3:00 AM SMOKE JUMPER us Michael Sharp MD LABORATORY Final Resul t Performing Organization Address [facility] de Phone Number [facility] [address] [place] [address], * Quantitative HCG (06/07/2024 3:00 AM SMOKE JUMPER) Only the most recent of3 resultswithin the time period is included. [facility] HCG QUANTITATIVE 60,571 MIU/ML 06/07/19 3:52 AM SMOKE JUMPER [facility] Comment: WEEKS OF ? REFERENCE RANGES NON- FEMALE ?0-6 ? 0.2 - 1 ? 5 - 50 ? 1 - 2 ? 50 - 500 ? 2 - 3 ? 100 - 5000 ? 3 - 4 ? 500 - 10,000 ? 4 - 5 ? 1000 - 50,000 ? 5 - 6 ? 10,000 - 100,000 ? 6 - 8 ? 15,000 - 200,000 ? 2 - 3 MONTHS ?10,000 - 100,000 06/07/2024 3:00 AM SMOKE JUMPER us Michael Sharp MD LABORATORY Final Resul t Performing Organization Address [facility]/State/ZIP Co de Phone Number [facility] [address] [place] [address], [place] [phone] * URINALYSIS (06/07/2024 2:28 AM SMOKE JUMPER) Only the most recent of2 resultswithin the time period is included. COLOR (U) LIGHT YELLOW 06/07/2024 2:39 AM [facility] TRANSPARENCY CLEAR 06/07/2024 2:39 AM [facility] SPECIFIC GRAVITY (U) 1.015 1.002 - 1.030 06/07/2024 2:39 AM [facility] U PH 6.0 4.5 - 8.0 06/07/2024 2:39 AM [facility] LEUKOCYTES (U) NEGATIVE NEGATIVE 06/07/2024 2:39 AM [facility] NITRITES NEGATIVE NEGATIVE 06/07/2024 2:39 AM [facility] PROTEIN RANDOM (U) NEGATIVE NEGATIVE 06/07/2024 2:39 AM [facility] GLUCOSE (U) NEGATIVE NEGATIVE 06/07/2024 2:39 AM [facility] KETONES MG/DL (U) NEGATIVE NEGATIVE 06/07/2024 2:39 AM [facility] UROBILINOGEN NORMAL NORMAL EU/DL 06/07/2024 2:39 AM [facility] BILIRUBIN (U) NEGATIVE NEGATIVE 06/07/2024 2:39 AM [facility] BLOOD (U) NEGATIVE NEGATIVE 06/07/2024 2:39 AM [facility] WBC/HPF MICROSCOPIC ANALYSIS NOT DONE ON URINES WITH NEGATIVE BIOCHEMICAL TESTS /HPF 06/07/2024 2:39 AM [facility] URINE SPECIMEN OBTAINED BY CLEAN CATCH PROCEDURE / Unknown 06/07/2024 2:28 AM SMOKE JUMPER us Michael Sharp MD URINE ORDERABLES Final Resu lt [facility] [address] [place] [address], [place] [phone] * US OB TRANSVAG (05/08/2024 10:40 AM SMOKE JUMPER) Only the most recent of2 resultswithin the time period is included. Anatomical Region Laterality Modality Abdomen, Pelvis Ultrasound 05/08/2024 10:4 4 AM SMOKE JUMPER Impressions 05/08/2024 10:53 AM SMOKE JUMPER IMPRESSION:===== ?? 1. ??Single viable intrauterine gestation with positive cardiac activity seen. . Estimated gestational age is 6 weeks 1 day +/- 0 weeks 3 days ??with an estimated date of confinement of 12/31/2024.. 2. ??Multiple areas of hemorrhage suspected adjacent to the gestational sac in the lower uterine segment. ??Other etiologies are possible. ??Close interval follow- up is recommended. 3. ??Nonspecific hypoechoic Appearance of the right ovary. ??Follow-up is recommended. Referred By: ?? Interpreted By: Jarrod Case MD, 05/08/2024 10:44 AM Narrative 05/08/2024 10:53 AM SMOKE JUMPER [address] [address] EXAMINATION: OB ultrasound with transvaginal imaging EXAM DATE/TIME: 05/08/2024 10:13 AM REASON FOR EXAM: ??heavy vaginal bleeding, early ?? COMPARISON: 04/21/2024 TECHNIQUE: Transvaginal ultrasound evaluation of the pelvic contents was performed for analysis of grayscale and color Doppler imaging characteristics. FINDINGS: Single intrauterine gestation is noted. . heart rate is 109 beats per minute. ??Yolk sac is visualized. mean crown-rump length is 0.4 centimeters. This projects to a gestational age of 6 weeks 1 day +/- 0 weeks 3 days. ??Estimated date of confinement is 12/31/2024 . ??Hemorrhage, fluid or other abnormality adjacent to gestational sac is noted measuring 1.9 x 0.2 cm. ??Larger hypoechoic area is seen in the endometrial cavity in the lower uterine segment. ??Hemorrhage in this area is also possible. ??This measures 2.6 x 1.1 cm on sagittal image. The ovaries are right side only. ??This is fairly diffusely hypoechoic. ??Is seen measuring 2.6 x 2.8 x 3.1 cm. ??Subtle internal color-flow enhancement is noted. ===== Procedure Note Jarrod Case MD - 05/08/[address] [address] EXAMINATION: OB ultrasound with transvaginal imaging EXAM DATE/TIME: 05/08/2024 10:13 AM REASON FOR EXAM: heavy vaginal bleeding, early COMPARISON: 04/21/2024 TECHNIQUE: Transvaginal ultrasound evaluation of the pelvic contents wasperformed for analysis of grayscale and color Doppler imagingcharacteristics. FINDINGS: Single intrauterine gestation is noted. . heart rate is109 beats per minute. Yolk sac is visualized. mean crown-rump length is0.4 centimeters. This projects to a gestational age of 6 weeks 1 day +/- 0weeks 3 days. Estimated date of confinement is 12/31/2024 . Hemorrhage,fluid or other abnormality adjacent to gestational sac is noted measuring1.9 x 0.2 cm. Larger hypoechoic area is seen in the endometrial cavity inthe lower uterine segment. Hemorrhage in this area is also possible.This measures 2.6 x 1.1 cm on sagittal image. The ovaries are right side only. This is fairly diffusely hypoechoic. Isseen measuring 2.6 x 2.8 x 3.1 cm. Subtle internal color-flow enhancementis noted. ===== IMPRESSION:===== 1. Single viable intrauterine gestation with positive cardiacactivity seen. . Estimated gestational age is 6 weeks 1 day +/- 0 weeks 3days with an estimated date of confinement of 12/31/2024.. 2. Multiple areas of hemorrhage suspected adjacent to the gestational sacin the lower uterine segment. Other etiologies are possible. Closeinterval follow-up is recommended. 3. Nonspecific hypoechoic Appearance of the right ovary. Follow-up isrecommended. Referred By: Interpreted By: Jarrod Case MD, 05/08/2024 10:44 AM Hue Puckett [facility]TR[facility] Final Resul t * BLOOD TYPING, ABO AND RH (05/08/2024 8:56 AM SMOKE JUMPER) Only the most recent of2 resultswithin the time period is included. ABO/RH A POSITIVE 05/08/2024 10:34 AM SMOKE JUMPER [facility] 05/08/2024 8:56 AM SMOKE JUMPER Hue Puckett [facility] BLOOD BANK TEST ORDERABLES Final Result [facility] [address] [place] [address], [place] [phone] * CT ABD+PEL W IV CON ONLY (04/20/2024 11:27 PM SMOKE JUMPER) Anatomical Region Laterality Modality Abdomen Computed Tomogra phy 04/20/2024 11:3 6 PM SMOKE JUMPER Impressions 04/20/2024 11:39 PM SMOKE JUMPER IMPRESSION: 1. ??No CT evidence of acute abdominopelvic pathology. 2. ??Small-moderate sized fat filled periumbilical hernia redemonstrated. PQRS ABDOMINAL: [id number] Referred By: ?? Interpreted By: Nicolas Lema, 04/20/2024 11:36 PM Narrative 04/20/2024 11:39 PM SMOKE JUMPER [facility] [id number] [place], [place] [address]. [place] [address] HISTORY: Abdominal pain COMPARISON: 10/29/2023 TECHNIQUE: CT abdomen and pelvis performed utilizing thin-slice axial technique following IV administration of contrast. A dose-lowering technique was used for this procedure, which may include, but is not limited to, dose-reduction technique, automated exposure control, the use of iterative reconstruction, and ALARA (As Low As Reasonably Achievable) / Image Gently techniques. FINDINGS: Gallbladder surgically absent. ??Liver, biliary tracts, spleen, kidneys, adrenal glands, pancreas, bladder, and uterus unremarkable. ??No adnexal or ovarian mass or significant cysts. GI tract shows no obstruction or other acute or significant pathology. ??Appendix is normal. No abdominal or pelvic lymphadenopathy. ??Major vascular structures of normal course and caliber with mild calcific plaque in infrarenal abdominal aorta and iliac arteries. ??There is no free fluid or free air. ??Small-moderate periumbilical fat filled hernia redemonstrated. ??Abdominal wall and inguinal regions otherwise unremarkable. Included lung bases clear. ??Visualized bones show no suspicious lytic or blastic lesions. Procedure Note Nicolas Lema MD - 04/20/2024 [facility] [address] [place] [address] HISTORY: Abdominal pain COMPARISON: 10/29/2023 TECHNIQUE: CT abdomen and pelvis performed utilizing thin-slice axialtechnique following IV administration of contrast. A dose-loweringtechnique was used for this procedure, which may include, but is notlimited to, dose-reduction technique, automated exposure control, the useof iterative reconstruction, and ALARA (As Low As Reasonably Achievable) /Image Gently techniques. FINDINGS: Gallbladder surgically absent. Liver, biliary tracts, spleen, kidneys,adrenal glands, pancreas, bladder, and uterus unremarkable. No adnexal orovarian mass or significant cysts. GI tract shows no obstruction or other acute or significant pathology.Appendix is normal. No abdominal or pelvic lymphadenopathy. Major vascular structures ofnormal course and caliber with mild calcific plaque in infrarenalabdominal aorta and iliac arteries. There is no free fluid or free air.Small-moderate periumbilical fat filled hernia redemonstrated. Abdominalwall and inguinal regions otherwise unremarkable. Included lung bases clear. Visualized bones show no suspicious lytic orblastic lesions. IMPRESSION: 1. No CT evidence of acute abdominopelvic pathology. 2. Small-moderate sized fat filled periumbilical hernia redemonstrated. PQRS ABDOMINAL: [id number] Referred By: Interpreted By: Nicolas Lema, 04/20/2024 11:36 PM us Grant Reyes MD CT Final Resu lt * (ABNORMAL) TEST URINE (04/20/2024 9:01 PM SMOKE JUMPER) URINE HCG TEST POSITIVE( A) NEGATIVE 04/20/2024 9:39 PM SMOKE JUMPER [facility] Comment: VERY DILUTE URINE SPECIMENS MAY NOT CONTAIN [facility] CHIEF LEVELS OF HCG. IF IS STILL SUSPECTED, A SERUM HCG TEST IS RECOMMENDED. URINE SPECIMEN FROM URETHRA / Unknown 04/20/2024 9:01 PM SMOKE JUMPER us Grant Reyes MD URINE ORDERABLES Final Res ult [facility] [address] [place] [address], [place] [phone] * URINALYSIS, AUTO, COMPLETE (04/20/2024 9:01 PM SMOKE JUMPER) COLOR (U) YELLOW 04/20/2024 9:50 PM SMOKE JUMPER [facility] TRANSPARENCY CLEAR 04/20/2024 9:50 PM SMOKE JUMPER [facility] SPECIFIC GRAVITY (U) 1.015 1.000 - 1.030 04/20/2024 9:50 PM SMOKE JUMPER [facility] U PH 6.5 5.0 - 9.0 04/20/2024 9:50 PM SMOKE JUMPER [facility] LEUKOCYTES (U) NEGATIVE NEGATIVE 04/20/2024 9:50 PM [facility] NITRITES NEGATIVE NEGATIVE 04/20/2024 9:50 PM [facility] PROTEIN RANDOM (U) NEGATIVE NEGATIVE 04/20/2024 9:50 PM [facility] GLUCOSE (U) NEGATIVE NEGATIVE 04/20/2024 9:50 PM [facility] KETONES MG/DL (U) NEGATIVE NEGATIVE 04/20/2024 9:50 PM [facility] BILIRUBIN (U) NEGATIVE NEGATIVE 04/20/2024 9:50 PM [facility] BLOOD (U) NEGATIVE NEGATIVE 04/20/2024 9:50 PM [facility] WBC/HPF NONE SEEN 0 - 5 /HPF 04/20/2024 9:50 PM [facility] RBC/HPF NONE SEEN 0 - 5 /HPF 04/20/2024 9:50 PM [facility] EPI/HPF RARE /HPF 04/20/2024 9:50 PM [facility] URINE SPECIMEN OBTAINED BY CLEAN CATCH PROCEDURE / Unknown 04/20/2024 9:01 PM SMOKE JUMPER us Grant Reyes MD URINE ORDERABLES Final Res ult [facility] [address] [place] [address], * HEMOGLOBIN, GLYCOSYLATED (04/24/2019 8:04 AM SMOKE JUMPER) HGB A1C 6.2 4.2 - 6.3 % [facility] Comment: Note: ??Hemoglobinopathies such as HbF, HbS, etc. may give incorrect results with this test. ESTIMATED AVG GLUCOSE 120 mg/dL [facility] Comment: (This value is a calculated estimate of the mean blood glucose over the last 60 days based on the patient's HgbA1c value. 04/24/2019 8:04 AM SMOKE JUMPER 04/24/2019 8:04 AM SMOKE JUMPER us Shital Mancini [facility] Final Resul t [address] [address] * (ABNORMAL) LIPID PANEL (04/24/2019 8:04 AM SMOKE JUMPER) CHOLESTEROL 226(H) 0 - 200 mg/dL [facility] TRIGLYCERIDES 224(H) 0 - 150 mg/dL [facility] HDL 32 0 - 40 mg/dL [facility] LDL (CALCULATED) 149(H) 10 - 130 mg/dL [facility] CARDIO RISK 7 [facility] Comment: ?CHOLESTEROL LEVELS AND CHD RISK INTERPRETATIONS ?CHOLESTEROL ?LDL ?DESIRABLE ?< 200 mg/dL ? < 130 mg/dL ?BORDERLINE ? 200-239 mg/dL ? 130-159 mg/dL ?HIGH ? > 240 mg/dL ? > 160 mg/dL ?CHD RISK FACTORS ? CHOL/HDL RATIO ? MALE ?FEMALE ?BELOW AVG. ?< 4.2 ? < 3.9 ?AVERAGE ? 4.2-7.3 ? 3.9-5.7 ?ABOVE AVG.(MODERATE) ?7.4-11.5 ?5.8-9.0 ?ABOVE AVG.(HIGH) ?> 11.5 ?> 9.0 ?LDL AND CHD RATIO ARE INVALID IF TRIGLYCERIDES >450 04/24/2019 8:04 AM SMOKE JUMPER 04/24/2019 8:04 AM SMOKE JUMPER us [facility] Final Resul t [id number] [address] [address] * HEPATITIS PANEL,ACUTE (03/28/2015 9:43 AM SMOKE JUMPER) HAV IGM NON-REACTIV E NON-REAC TIVE [facility] TO EPIC CONVERSION HEPATITIS B SURFACE AG NON-REACTIV E NON-REAC TIVE [facility] TO EPIC CONVERSION HEP B CORE IGM NON-REACTIV E NON-REAC TIVE [facility] TO EPIC CONVERSION HEPATITIS C AB NON-REACTIV E NON-REAC TIVE [facility] TO EPIC CONVERSION SIGNAL TO CUTOFF 0.02 <1.00 [facility] TO [facility]IC CONVERSION Comment: Effective April 04, 2015, Hepatitis C Antibody (test code 8472) will be revised to automatically reflex to the Hepatitis C Viral RNA, Quantitative, Real-Time PCR assay if the antibody screening result is Reactive. We are instituting this change per the CDC/USPSTF recommendations regarding the HCV diagnostic algorithm. As of April 04, 2015 the name of the test code 8472 will be Hepatitis C Antibody with Reflex to HCV RNA, Quantitative, Real-Time PCR. This change will also be reflected in standard and custom profiles that currently include test code 8472. MARICRUZ FRASER DO,MPH REPORT STATUS Not required [facility] TO EPIC CONVERSION Comment: THIS TEST WAS PERFORMED AT [facility] [address] [place] [address] 03/28/2015 9:43 AM SMOKE JUMPER 03/28/2015 9:43 AM SMOKE JUMPER Narrative [facility] TO EPIC CONVERSION - 03/30/2015 11:23 AM SMOKE JUMPER This lab was migrated from [facility] and may be missing annotations or result text, please check the Media tab for the most complete results. 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
--- OUTSIDE RECORDS SUMMARY | 2024-06-18 15:35 | XMS_ITS | Clinical Summary ---
Author Organization [facility] Address [address] [place] [address] Care Team Providers Care Rig Operator Name Role Phone Unknown, Provider Primary Care Provider Unavaila ble Source Comments [facility],non-owned Affiliates and Associated Physician Practices is amultiple site organization consisting of ambulatory clinics and hospital sitesin [place], [place], [place] and [place]. This disclosure is being madepursuant to the Care Everywhere program and may not contain all information available regarding this patient. Last updated 18.[facility] Allergies Active Allergy Reactions Criticality Noted Date [...] and dinner. 150 Each 5 06/16/2024 Active Encounters Date Type Department Care Team Description 06/16/2024 10:20 AM CLINICAL INSTRUCTOR - 06/16/2024 11:59 PM CLINICAL INSTRUCTOR Hospital Encounter [facility] [address] [place] [address] Stu Gonzalez MD Discharge Disposition: Home or Self Care from Last 3 Months Social History Tobacco Use Types Packs/Day Years [...] Comments Blood Pressure 138/87 06/16/2024 10:40 AM CLINICAL INSTRUCTOR Pulse 87 06/16/2024 10:40 AM CLINICAL INSTRUCTOR Temperature - - Respiratory Rate 18 06/16/2024 10:40 AM CLINICAL INSTRUCTOR Oxygen Saturation - - Inhaled Oxygen Concentration - - Weight 112 kg (247 lb) 06/16/2024 10:40 AM CLINICAL INSTRUCTOR Height - - Body Mass Index - - Plan of Treatment Upcoming Encounters Date Type Department Care Team (Late st Contact Info) Description 06/30/2024 8:15 AM CLINICAL INSTRUCTOR Appointment [facility] [address] [place] [address] 06/30/2024 9:00 AM CLINICAL INSTRUCTOR Appointment [facility] [address] [place] [address] 06/30/2024 9:45 AM CLINICAL INSTRUCTOR Appointment [facility] [address] [place] [address] Health Maintenance Due Date Last Done Comments PAP SMEAR 1990 HIV SCREENING 2005 HEPATITIS C SCREENING 11/29/2008 DTAP/TDAP/TD VACCINES (1 - Tdap) 2009 HEPATITIS B VACCINE (1 of 3 - 19+ 3-dose series) 2009 PNEUMOCOCCAL VACCINE (1 of 2 - PCV) 2009 COVID-19 VACCINE ( - 2023-2 5 season) 2024 06/16/2020, 05/18/2020 INFLUENZA VACCINE (#1) 2024 DEPRESSION SCREENING 05/27/2024 ZOSTER VACCINE (1 of 2) 2040 HIB VACCINE Aged Out No longer eligi ble based on patient's age to complete this topic HPV VACCINE Aged Out No longer eligi ble based on patient's age to complete this topic MENINGOCOCCAL (Group B) VACCINE Aged Out No longer eligible b ased on patient's age to complete this topic MENINGOCOCCAL VACCINE Aged Out No charley raoul eligible based on patient's age to complete this topic Respiratory Syncytial Virus (RSV) Vaccine Pt: or over 60 yrs (No Doses Required) Completed Care Teams Rig Operator Relationship Specialty Start Date End Date Unknown, Provider PCP - General 06/16/24
--- OUTSIDE RECORDS SUMMARY | 2024-06-18 15:35 | XMS_ITS | Patient Health Summary ---
Author Organization [facility] [employer] Address [address] [place] [address] Care Team Providers Care Fabrication Department Supervisor Name Role Phone Unknown, Provider Primary Care Provider Unavaila ble Note from [facility],non-owned Affiliates and Associated Physician Practices is amultiple site organization consisting of ambulatory clinics and hospital sitesin [place], [place], [place] and [place]. This disclosure is being madepursuant to the Care Everywhere program and may not contain all information available regarding this patient. Last updated 18.[facility] Allergies * Blackberry Flavor(Unknown) * Naproxen(Rash) -Medium Criticality * Toradol(Rash,Vomiting) -Medium Criticality * Tramadol(Vomiting) Medications * Be aware that medications may not be up to date on this document. Alwaysverify current medications with the patient. * NIFEdipine CR 24hr (Adalat CC) 30 MG tablet(Started 06/10/2024) Take 1 (one) tablet by mouth once daily * Vit-Fe Fumarate-FA ( VITAMIN PO) Take 1 tablet by mouth once daily * blood glucose (OneTouch Verio) test strip(Started 06/16/2024) Use test strip to check Blood glucose four times daily. Check fasting glucose, and then one hour after each meal for breakfast, lunch, and dinner. 10 refills by 06/16/2025 * Lancets (ONETOUCH DELICA PLUS 33G EXTRA FINE LANCET)(Started 06/16/2024) Use lancet to check Blood glucose four times daily. Check fasting glucose, and then one hour after each meal for breakfast, lunch, and dinner. 5 refills by 06/16/2025 Social History Tobacco Use Types Packs/Day Years [...] Comments Blood Pressure 138/87 06/16/2024 10:40 AM ACCOUNTING CLERKS SUPERVISOR Pulse 87 06/16/2024 10:40 AM ACCOUNTING CLERKS SUPERVISOR Temperature - - Respiratory Rate 18 06/16/2024 10:40 AM ACCOUNTING CLERKS SUPERVISOR Oxygen Saturation - - Inhaled Oxygen Concentration - - Weight 112 kg (247 lb) 06/16/2024 10:40 AM ACCOUNTING CLERKS SUPERVISOR Height - - Body Mass Index - - Care Teams Fabrication Department Supervisor Relationship Specialty Start Date End Date Unknown, Provider PCP - General 06/16/24
== END 2024-06-16 07:29 | disposition home or self-care (01) ==
LOC: ANHLAB 07:29
PROVIDERS: PCP Emergency Medicine; Visit Provider Student in an Organized Health Care Education/Training Program
DX: O24.311 Unspecified pre-existing diabetes mellitus in pregnancy, first trimester (principal); O20.0 Threatened abortion; Z3A.00 Weeks of gestation of pregnancy not specified
CPT/HCPCS: 36415; 84443; 84702

== ENCOUNTER 2024-07-17 14:52 | Outpatient (CLI) | payer BC, SELFPAY ==
--- OUTSIDE RECORDS SUMMARY | 2024-07-17 14:59 | XMS_ITS | Clinical Summary ---
Author Organization [facility]. Address [address] [place] [address] Care Team Providers Care Outpatient Clerk Name Role Phone Unknown, Provider Primary Care Provider Unavaila ble Source Comments [facility]non-owned Affiliates and Associated Physician Practices is amultiple site organization consisting of ambulatory clinics and hospital sitesin [place], [place]. This disclosure is being madepursuant to the Care Everywhere program and may not contain all information available regarding this patient. Last updated 18.[facility] Allergies Active Allergy Reactions Criticality Noted Date [...] daily Active blood glucose (OneTouch Verio) test stripIndication s:Pre-existing type 2 diabetes mellitus during in first trimester (HCC) Use test strip to check Blood glucose four times daily. Check fasting glucose, and then one hour after each meal for breakfast, lunch, and dinner. 150 strip 10 06/16/2024 Active Lancets (ONETOUCH DELICA PLUS 33G EXTRA FINE LANCET)Indicati ons:Pre-existin g type 2 diabetes mellitus during in first trimester (HCC) Use lancet to check Blood glucose four times daily. Check fasting glucose, and then one hour after each meal for breakfast, lunch, and dinner. 150 Each 06/16/2024 Active insulin pen needle (Novofine) 32G X 6 MM MISCIndications :Pre-existing type 2 diabetes mellitus during in first trimester (HCC) 1 (one) Each by Injection route 2 times daily 100 Each 06/19/2024 Active Alcohol Swabs Use as needed for insulin administration 100 Each 06/19/2024 Active Glucagon (Baqsimi One Pack) 3 MG/DOSE POWD [place] 1 Each into the nose as needed 1 Each 06/19/2024 Active insulin glargine (Lantus/Semglee ) 100 units/mL pen Inject 18 units in the morning and 18 units at bedtime. Take dosages approximately 12 hours apart. Increase dose as directed due to increasing insulin requirements during . Max total daily dose = 50u 15 mL 06/30/2024 Active insulin glargine (Lantus/Semglee ) 100 units/mL pen Inject 10 units in the morning and 10 units at bedtime. Take dosages approximately 12 hours apart. Increase dose as directed due to increasing insulin requirements during . Max total daily dose = 50u 15 mL 06/19/2024 06/26/19 25 Discontinued insulin glargine (Lantus/Semglee ) 100 units/mL pen Inject 15 units in the morning and 15 units at bedtime. Take dosages approximately 12 hours apart. Increase dose as directed due to increasing insulin requirements during . Max total daily dose = 50u 15 mL 06/26/2024 06/30/19 25 Discontinued Encounters Date Type Department Care Team Description 06/30/2024 8:05 AM [facility] - 06/30/2024 11:59 PM [facility] Hospital Encounter [facility] [address] [place] [address] Liu Taveras MD Gross, Gilad A, MD Discharge Disposition: Home or Self Care 06/30/2024 8:04 AM [facility] Hospital Encounter [facility] [address] [place] [address] Liu Taveras MD Gross, Gilad A, MD Discharge Disposition: Home or Self Care 06/30/2024 8:04 AM EXCHANGE MECHANIC Hospital Encounter [facility] [address] [place] [address] Liu Taveras MD Gross, Gilad A, MD Discharge Disposition: Home or Self Care 06/16/2024 10:20 AM EXCHANGE MECHANIC - 06/16/2024 11:59 PM EXCHANGE MECHANIC Hospital Encounter [facility] [address] [place] [address] Stu Gonzalez MD Discharge Disposition: Home or Self Care from Last 3 Months Family History Medical History Relation Name Comments Leukemia Father Cancer - Breast Maternal Grandfather Diabetes - Type 2 Mother Hypertension Mother Other - Cardiac Mother Relation Name Status Comments Father Maternal Grandfather Mother Social History Tobacco Use Types Packs/Day Years Used Date Smoking Tobacco: Former Cigarettes Q uit: 2003 Smokeless Tobacco: Never Alcohol Use Standard Drinks/Week Comments Not Currently 0 (1 standard drink = 0.6 oz pur e alcohol) Estimated Date of Delivery Comme nts Yes 12/31/2024 Based on Ultraso und Sex and Gender Information Value Date Recorded Sex Assigned at Not on file Gender Identity Not on file Sexual Orientation Not on file Last Filed Vital Signs Vital Sign Reading Time Taken Comments Blood Pressure 135/80 06/30/2024 9:14 AM EXCHANGE MECHANIC Pulse 98 06/30/2024 9:14 AM EXCHANGE MECHANIC Temperature - - Respiratory Rate 18 06/16/2024 10:4 0 AM EXCHANGE MECHANIC Oxygen Saturation - - Inhaled Oxygen Concentration - - Weight 111.1 kg (244 lb 14.4 oz) 06/30/2024 9:14 AM EXCHANGE MECHANIC Height 165.1 cm (5' 5 ) 06/30/2024 9:14 AM EXCHANGE MECHANIC Body Mass Index 40.75 06/30/2024 9:14 AM EXCHANGE MECHANIC Plan of Treatment Upcoming Encounters Date Type Department Care Team (Late st Contact Info) Description 07/21/2024 2:30 PM EXCHANGE MECHANIC Hospital Encounter [facility] [address] [place] [address] Stu Gonzalez MD [facility] [address] 08/11/2024 1:00 PM CDT Appointment [facility] [address] [place] [address] Health Maintenance Due Date Last Done Comments PAP SMEAR 1990 HIV SCREENING 2005 HEPATITIS C SCREENING 11/29/2008 DTAP/TDAP/TD VACCINES (1 - Tdap) 2009 HEPATITIS B VACCINE (1 of 3 - 19+ 3-dose series) 2009 PNEUMOCOCCAL VACCINE (1 of 2 - PCV) 2009 COVID-19 VACCINE (3 - 2023-2 5 season) 2024 06/16/2020, 05/18/2020 [...] over 60 yrs (No Doses Required) Completed Procedures Procedure Name Priority Date/Time Associated Diagnosis Comments SONOGRAM - COMPLETE Routine 06/30/2024 8:17 AM EXCHANGE MECHANIC Encounter for ultrasound (HCC) Primigravida, antepartum (HCC) Type 2 diabetes mellitus without complication, unspecified whether senior living insulin use (HCC) Chronic hypertension affecting (HCC) Obesity in (HCC) BMI 40.0-44.9, adult (HCC) History of PCOS History of umbilical hernia 13 weeks gestation of (HCC) from Last 3 Months Results * SONOGRAM - COMPLETE (06/30/2024 8:17 AM EXCHANGE MECHANIC) Linked Results Indication ======== Diabetes mellitus, type II Chronic hypertension, requiring meds Obesity, Class III PCOS Vaginal bleeding History ====== OB History 1. Para 0 Maternal Assessment = Physical Exam Height 165 cm, 5 ft 5 in. Weight 111 kg, 244 lb. Initial weight 112 kg, 246 lb. BMI 40.60 kg/m . Initial BMI 40.94 kg/m . Weight gain -1 kg, -2 lb Method ====== Transabdominal ultrasound. View: Sufficient ========= Olson . Number of fetuses: 1 Dating ====== Date Details Gest. age JOHANA Stated JOHANA 13 w + 5 d 12/31/2024 Previous U/S 05/13/2024 GA, GA 6 w + 6 d 13 w + 5 d 12/31/2024 U/S 06/30/2024 based upon AC, BPD, Femur, HC 14 w + 3 d 12/26/2024 Assigned dating based on ultrasound (GA), selected on 06/30/2024 13 w + 5 d 12/31/2024 General Evaluation Cardiac activity present. FHR 164 bpm. Presentation: cephalic Placenta: Placental site: posterior. 5.4 xx 1.4 x 3.0 cm subchorionic hemorrhage near the cervix Umbilical cord: Cord vessels: 3 vessel cord. Insertion site: suboptimal Amniotic fluid: Amount of AF: appears normal Biometry BPD 26.2 mm 14w 4d 78% Hadlock HC 97.4 mm 14w 3d 69% Hadlock AC 80.4 mm 14w 3d 80% Hadlock Femur 14.0 mm 14w 1d 62% Hadlock Humerus 14.3 mm 14w 0d 68% [place] HC / AC 1.21 15w 3d Hadlock Weight Calculation: EFW 95 g 74% Hadlock EFW (lb,oz) 0 lb 3 oz EFW by Hadlock (HPH-RT-BC-FL) appropriate Growth Overview = Exam date GA BPD (mm) HC (mm) AC (mm) FL (mm) HL (mm) EFW (g) 06/30/2024 13w 5d 26.2 78% 97.4 69% 80.4 80% 14 62% 14.3 68% 95 74% Anatomy The following structures appear normal: Head / Neck Choroid plexus. Midline falx. Heart / Thorax Diaphragm. Abdomen Cord insertion. The following structures could not be adequately visualized: Extremities / Skeleton Hands. Feet. The following structures were visualized: Head / Neck Cranium. Heart / Thorax Heart. Abdomen Stomach. Kidneys. Bladder. Spine Spine. Extremities / Skeleton Arms. Legs. Maternal Structures Right Ovary Appears normal Left Ovary Appears normal Impression ========= Single live intrauterine at 13w5d The JOHANA is 12/31/2024 size appears appropr is WNL 5.4 xx 1.4 x 3.0 cm subchorionic bleed near cervix Follow-up ======== Follow up ultrasound in 3 weeks to assess cervical length Follow up ultrasound in 6 weeks for growth, detailed anatomic survey and transvaginal cervical length Coding ====== Procedures [id number]: 1st Trimester [employer] PACS Anatomical Region Laterality Modality Other 06/30/2024 8:17 AM EXCHANGE MECHANIC Kody Mark MD [facility] ORDERABLES from Last 3 Months Care Teams Outpatient Clerk Relationship Specialty Start Date End Date Unknown, Provider PCP - General 06/16/24
--- OUTSIDE RECORDS SUMMARY | 2024-07-17 14:59 | XMS_ITS | Patient Health Summary ---
Author Organization [facility] [employer] Address [address] [place] [address] Care Team Providers Care Transit Bus Operator Name Role Phone Unknown, Provider Primary Care Provider Unavaila ble Note from [facility],non-owned Affiliates and Associated Physician Practices is amultiple site organization consisting of ambulatory clinics and hospital sitesin [place], [place], [place] and [place]. This disclosure is being madepursuant to the Care Everywhere program and may not contain all information available regarding this patient. Last updated 18.[facility] [employer] Allergies * Blackberry Flavor(Unknown) * Naproxen(Rash) -Medium [...] lunch, and dinner. 5 refills by 06/16/2025 * insulin pen needle (Novofine) 32G X 6 MM MISC(Started 06/19/2024) 1 (one) Each by Injection route 2 times daily 5 refills by 06/19/2025 * Alcohol Swabs(Started 06/19/2024) Use as needed for insulin administration 5 refills by 06/19/2025 * Glucagon (Baqsimi One Pack) 3 MG/DOSE POWD(Started 06/19/2024) [place] 1 Each into the nose as needed * insulin glargine (Lantus/Semglee) 100 units/mL pen(Started 06/30/2024) Inject 18 units in the morning and 18 units at bedtime. Take dosages approximately 12 hours apart. Increase dose as directed due to increasing insulin requirements during . Max total daily dose = 50u 5 refills by 06/30/2025 Ended Medications* insulin glargine (Lantus/Semglee) 100 units/mL pen(Started 06/19/2024)(Discontinued) Inject 10 units in the morning and 10 units at bedtime. Take dosages approximately 12 hours apart. Increase dose as directed due to increasing insulin requirements during . Max total daily dose = 50u 5 refills by 06/19/2025 * insulin glargine (Lantus/Semglee) 100 units/mL pen(Started 06/26/2024) (Discontinued) Inject 15 units in the morning and 15 units at bedtime. Take dosages approximately 12 hours apart. Increase dose as directed due to increasing insulin requirements during . Max total daily dose = 50u 5 refills by 06/26/2025 Social History Tobacco Use Types Packs/Day Years [...] Comments Blood Pressure 135/80 06/30/2024 9:14 AM DATABASE COORDINATOR Pulse 98 06/30/2024 9:14 AM DATABASE COORDINATOR Temperature - - Respiratory Rate 18 06/16/2024 10:4 0 AM DATABASE COORDINATOR Oxygen Saturation - - Inhaled Oxygen Concentration - - Weight 111.1 kg (244 lb 14.4 oz) 06/30/2024 9:14 AM DATABASE COORDINATOR Height 165.1 cm (5' 5 ) 06/30/2024 9:14 AM DATABASE COORDINATOR Body Mass Index 40.75 06/30/2024 9:14 AM DATABASE COORDINATOR Procedures * SONOGRAM - COMPLETE(Performed 06/30/2024) Performed for Encounter for ultrasound ([facility]), Primigravida, antepartum (HCC), Type 2 diabetesmellitus without complication, unspecified whether 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 insulin use (HCC), Chronic hypertension affecting (HCC), Obesity in (HCC), BMI 40.0-44.9, adult ([facility]), History of PCOS, History of umbilical hernia, 13 weeks gestation of ([facility]) Results * SONOGRAM - COMPLETE (06/30/2024 8:17 AM DATABASE COORDINATOR) Linked Results Indication ======== Diabetes mellitus, type [...] 0 lb 3 oz EFW by Hadlock (HKS-AF-SG-FL) appropriate Growth Overview = Exam date GA [...] and transvaginal cervical length Coding ====== Procedures 58327: 1st Trimester bient [employer] Anatomical Region Laterality Modality Other 06/30/2024 8:17 AM DATABASE COORDINATOR Kody Mark MD [facility] ORDERABLES Care Teams Transit Bus Operator Relationship Specialty Start Date End Date Unknown, Provider PCP - General 06/16/24
--- OUTSIDE RECORDS SUMMARY | 2024-07-17 14:59 | XMS_ITS | Referral Summary ---
Author Organization [facility] Address [address] [place] [address] Care Team Providers Care Brim Stiffener Name Role Phone Unknown, Provider Primary Care Provider Unavaila ble Source Comments [facility],non-owned Affiliates and Associated Physician Practices is amultiple site organization consisting of ambulatory clinics and hospital sitesin [place], [place], [place] and [place]. This disclosure is being madepursuant to the Care Everywhere program and may not contain all information available regarding this patient. Last updated 18.[facility] Encounters Date Type Department Care Team Description 06/30/2024 8:05 AM SCRAP SEPARATOR - 06/30/2024 11:59 PM SCRAP SEPARATOR Hospital Encounter [facility] [address] [place] [address] Liu Taveras MD Gross, Gilad A, MD Discharge Disposition: Home or Self Care 06/30/2024 8:04 AM SCRAP SEPARATOR Hospital Encounter [facility] [address] [place] [address] Liu Taveras MD Gross, Gilad A, MD Discharge Disposition: Home or Self Care 06/30/2024 8:04 AM SCRAP SEPARATOR Hospital Encounter [facility] [address] [place] [address] Liu Taveras MD Gross, Gilad A, MD Discharge Disposition: Home or Self Care 06/16/2024 10:20 AM SCRAP SEPARATOR - 06/16/2024 11:59 PM SCRAP SEPARATOR Hospital Encounter [facility] [address] [place] [address] Stu Gonzalez MD Discharge Disposition: Home or [...] 2 diabetes mellitus during in first trimester ([facility]) Use test strip to check Blood glucose four times daily. Check fasting glucose, and then one hour after each meal for breakfast, lunch, and dinner. 150 strip 10 06/16/2024 Active Lancets (ONETOUCH DELICA PLUS 33G EXTRA FINE LANCET)Indicati ons:Pre-existin g type 2 diabetes mellitus during in first trimester ([facility]) Use lancet to check Blood glucose four times daily. Check fasting glucose, and then one hour after each meal for breakfast, lunch, and dinner. 150 Each 06/16/2024 Active insulin pen needle (Novofine) 32G X 6 MM MISCIndications :Pre-existing type 2 diabetes mellitus during in first trimester ([facility]) 1 (one) Each by Injection route 2 times daily 100 Each 06/19/2024 Active Alcohol Swabs Use as needed for insulin administration 100 Each 06/19/2024 Active Glucagon (Baqsimi One Pack) 3 MG/DOSE POWD [place] 1 Each into the nose as needed [...] total daily dose = 50u 15 mL 5 06/19/2024 06/26/19 25 Discontinued insulin glargine (Lantus/Semglee ) 100 units/mL pen Inject 15 units in the morning and 15 units at bedtime. Take dosages approximately 12 hours apart. Increase dose as directed due to increasing insulin requirements during . Max total daily dose = 50u 15 mL 5 06/26/2024 06/30/19 25 Discontinued Social History Tobacco Use Types Packs/Day Years [...] Comments Blood Pressure 135/80 06/30/2024 9:14 AM SCRAP SEPARATOR Pulse 98 06/30/2024 9:14 AM SCRAP SEPARATOR Temperature - - Respiratory Rate 18 06/16/2024 10:4 0 AM SCRAP SEPARATOR Oxygen Saturation - - Inhaled Oxygen Concentration - - Weight 111.1 kg (244 lb 14.4 oz) 06/30/2024 9:14 AM SCRAP SEPARATOR Height 165.1 cm (5' 5 ) 06/30/2024 9:14 AM SCRAP SEPARATOR Body Mass Index 40.75 06/30/2024 9:14 AM SCRAP SEPARATOR Plan of Treatment Upcoming Encounters Date Type Department Care Team (Late st Contact Info) Description 07/21/2024 2:30 PM SCRAP SEPARATOR Hospital Encounter [facility] [address] [place] [address] Stu Gonzalez MD [address] [address] 08/11/2024 1:00 PM CDT Appointment [facility] [address] [place] [address] Procedures Procedure Name Priority Date/Time Associated Diagnosis Comments SONOGRAM - COMPLETE Routine 06/30/2024 8:17 AM SCRAP SEPARATOR Encounter for ultrasound (HCC) Primigravida, antepartum (HCC) Type 2 diabetes mellitus without complication, unspecified whether skilled nursing insulin use (HCC) Chronic hypertension affecting (HCC) Obesity in (HCC) BMI 40.0-44.9, adult ([facility]) History of PCOS History of umbilical hernia 13 weeks gestation of ([facility]) from Last 3 Months Results * SONOGRAM - COMPLETE (06/30/2024 8:17 AM SCRAP SEPARATOR) Linked Results Indication ======== Diabetes mellitus, type [...] 0 lb 3 oz EFW by Hadlock (ERC-BP-QV-FL) appropriate Growth Overview = Exam date GA [...] and transvaginal cervical length Coding ====== Procedures [id number]: 1st Trimester [employer] PACS Anatomical Region Laterality Modality Other 06/30/2024 8:17 AM SCRAP SEPARATOR Kody Mark MD [facility] ORDERABLES from Last 3 Months Care Teams Brim Stiffener Relationship Specialty Start Date End Date Unknown, Provider PCP - General 06/16/24
--- OUTSIDE RECORDS SUMMARY | 2024-07-17 14:59 | XMS_ITS | Encounter Summary ---
Author Organization [facility] Address [address] [place] [address] Care Team Providers Care Cheesemaker Name Role Phone Shital Mancini Primary Care Provider Unav Kareem Austin MD Primary Care Provider [phone] Kareem Domingo MD Primary Care Provider Shital Mancini Unavailable Unavailabl Kareem Liu MD Unavailable [phone] Shital Mancini Unavailable Unavailabl Kareem Liu MD Primary Care Provider [phone] Encounter Details Date Type Department Care Team (Late st Contact Info) Description 11/23/2019 MyChart Message Enc [address] [place] [id number] Shital Mancini FNP RE: Other Social History [...] Sex Assigned at Female 06/13/2024 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 [employer] Legal Sex Female 9:32 PM CDT Gender Identity Not on file Sexual Orientation Not on file documented as of this encounter Plan of Treatment Not on file documented as of this encounter Visit Diagnoses Not on filedocumented in this encounter Additional Health Concerns Infection Onset Date Last Indicated Resolved Time COVID-19 Rule Out 05/09/2022 05/09/2022 05/09/2022 2:58 PM ASSEMBLER [employer] COVID-19 Rule Out 10/06/2023 10/06/2023 10/06/2023 2:17 PM CDT documented as of this encounter Care Teams Cheesemaker Relationship Specialty Start Date End Date Shital Mancini FNP PCP - General FAMILY PRACTICE 03/12/18 02/14/21 Kareem Domingo MD [address] [place] [id number] PCP - General FAMILY PRACTICE 02/15/21 03/19/21 Kareem Domingo MD [address] [place] [id number] PCP - General FAMILY PRACTICE 03/20/21 04/19/24 Kareem Domingo MD [address] [place] [id number] PCP - General FAMILY PRACTICE 04/20/24 Shital Mancini FNP FAMILY PRACTICE 02/15/21 03/19/21 Kareem Domingo MD [address] [place] [address] FAMILY PRACTICE 03/20/21 04/19/24 Shital Mancini FNP 03/12/18 03/19/21 documented as of this encounter
--- OUTSIDE RECORDS SUMMARY | 2024-07-17 15:00 | XMS_ITS | Clinical Summary ---
Author Organization 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 TECHNOLOGIST Gender Identity Not on file Sexual Orientation Not on file Last Filed Vital Signs Vital Sign Reading Time Taken Comments Blood Pressure 154/87 08/04/2023 4:08 AM CDT Pulse 96 08/04/2023 12:44 AM DAIRY MANUFACTURING TECHNOLOGIST Temperature 36.2 C (97.2 F) 08/04/2023 12:44 AM DAIRY MANUFACTURING TECHNOLOGIST Respiratory Rate 18 08/04/2023 12:44 AM DAIRY MANUFACTURING TECHNOLOGIST Oxygen Saturation 97% 08/04/2023 12:44 AM DAIRY MANUFACTURING TECHNOLOGIST Inhaled Oxygen Concentration - - Weight 111.1 kg (245 lb) 08/04/2023 12:44 AM DAIRY MANUFACTURING TECHNOLOGIST Height 167.6 cm (5' 6 ) 08/04/2023 12:44 AM DAIRY MANUFACTURING TECHNOLOGIST Body Mass Index 39.54 08/04/2023 12:44 AM DAIRY MANUFACTURING TECHNOLOGIST Plan of Treatment Health Maintenance Due Date [...] patient's age to complete this topic Insurance Care Teams Community Service Officer Relationship Specialty Start Date End Date Kareem Domingo MD [address] [place] [id number] PCP - General Family Medicine 08/04/23
--- OUTSIDE RECORDS SUMMARY | 2024-07-17 15:00 | XMS_ITS | Clinical Summary ---
Author Organization [facility] Address [facility] [place] [address] Care Team Providers Care Hazardous Material Specialist Name Role Phone Kareem Domingo MD Primary Care Provider [phone] Allergies Active Allergy Reactions Criticality Noted Date Comments Naproxen Rash,Nausea and Vomiting High 04/01/2018 Naproxen Rash High 02/15/2021 Raspberry Anaphylaxis High 02/20/2013 Strawberries Anaphylaxis High 02/20/2013 Ketorolac Tromethamine Nausea and Vomiting High 1110/2017 Ketorolac Tromethamine Vomiting High 02/15/2021 Tramadol Nausea and Vomiting High 04/01/2018 Tramadol Vomiting High 02/15/2021 Medications Blood Glucose Monitoring Suppl (GH BLOOD GLUCOSE MONITOR) w/Device Kit Inject 1 [...] encounter Morbid obesity due to excess calories ([facility] H HS/[facility]) 06/02/2018 Allergic rhinitis, unspecifi ed seasonality, unspecified trigger 06/02/2018 Essential hypertension 04/01/2018 Type 2 diabetes mellitus ([facility]) 04/01 Comments Yes Encounters Date Type Department Care Team Description 06/18/2024 10:10 PM SCHOOL BUS DRIVER/MECHANIC - 06/19/2024 1:03 AM [facility] Emergency [facility] Emergency Room [address] [place] [id number] Cristela Davila MD Vaginal Bleeding Discharge Disposition: Home or Self Care (Routine Discharge) 06/18/2024 Travel 06/13/2024 1:24 PM SCHOOL BUS DRIVER/MECHANIC - 06/13/2024 4:41 PM [facility] Emergency [facility] Emergency Room [address] [place] [address] Akosua Olvera MD Vaginal Bleeding Discharge Disposition: Home or Self Care (Routine Discharge) 06/13/2024 Travel 06/07/2024 2:13 AM SCHOOL BUS DRIVER/MECHANIC - 06/07/2024 5:14 AM [facility] Emergency [facility] Emergency Room [address] [place] [id number] Michael Sharp MD Vaginal Bleeding (Low abdominal cramps and low back pain for >24 hours. ) Discharge Disposition: Home or Self Care (Routine Discharge) 06/07/2024 Travel 05/08/2024 8:49 AM SCHOOL BUS DRIVER/MECHANIC - 05/08/2024 11:36 AM [facility] Emergency [facility] [place] [address] Hue Puckett, BREAKER OILER Vaginal Bleeding Discharge Disposition: Home or Self Care (Routine Discharge) 05/08/2024 Travel 04/21/2024 1:44 AM SCHOOL BUS DRIVER/MECHANIC - 04/21/2024 3:47 AM [facility] Emergency [facility] Emergency Room [address] [place] [id number] Brock Campbell DO Abdominal Pain Discharge Disposition: Home or Self Care (Routine Discharge) 04/21/2024 Travel 04/20/2024 8:53 PM SCHOOL BUS DRIVER/MECHANIC - 04/21/2024 1:23 AM [facility] Emergency [facility] Emergency Room [address] [place] [address] Grant Reyes MD Flank Pain (Right sided [...] Sex Assigned at Female 06/13/2024 1:51 PM SCHOOL BUS DRIVER/MECHANIC Legal Sex Female 9:32 PM CDT Gender Identity Not on file Sexual Orientation Not on file Last Filed Vital Signs Vital Sign Reading Time Taken Comments Blood Pressure 149/97 06/19/2024 12:53 AM SCHOOL BUS DRIVER/MECHANIC Pulse 85 06/19/2024 12:53 AM SCHOOL BUS DRIVER/MECHANIC Temperature 36.7 C (98 F) 06/19/2024 12:53 AM SCHOOL BUS DRIVER/MECHANIC Respiratory Rate 19 06/18/2024 10:27 PM SCHOOL BUS DRIVER/MECHANIC Oxygen Saturation 99% 06/19/2024 12:53 AM SCHOOL BUS DRIVER/MECHANIC Inhaled Oxygen Concentration - - Weight 111.1 kg (245 lb) 06/18/2024 10:27 PM SCHOOL BUS DRIVER/MECHANIC Height 165.1 cm (5' 5 ) 06/18/2024 10:27 PM SCHOOL BUS DRIVER/MECHANIC Body Mass Index 40.77 06/18/2024 10:27 PM SCHOOL BUS DRIVER/MECHANIC Plan of Treatment Health Maintenance Due Date [...] Screening with HPV 2020 COVID-19 Vaccine ( - 2023- season) 2024 06/16/2020, 05/18/2020, 05/18/2020 Influenza Adult [...] Procedure Name Priority Date/Time Associated Diagnosis Comments HCG QUANT (SERUM)-CHORIONIC GONADOTROPIN STAT 06/18/2024 10:50 PM SCHOOL BUS DRIVER/MECHANIC COMPREHENSIVE METABOLIC PANEL STAT 06/18/2024 10:50 PM SCHOOL BUS DRIVER/MECHANIC CBC W/DIFF AUTOMATED STAT 06/18/2024 10:50 PM SCHOOL BUS DRIVER/MECHANIC US OB <14WKS TA STAT 06/13/2024 2:53 PM SCHOOL BUS DRIVER/MECHANIC COMPREHENSIVE METABOLIC PANEL STAT 06/13/2024 1:45 PM SCHOOL BUS DRIVER/MECHANIC CBC W/DIFF AUTOMATED STAT 06/13/2024 1:45 PM SCHOOL BUS DRIVER/MECHANIC US OB <14WKS TA STAT 06/07/2024 4:47 AM SCHOOL BUS DRIVER/MECHANIC HCG QUANT (SERUM)-CHORIONIC GONADOTROPIN STAT 06/07/2024 3:00 AM SCHOOL BUS DRIVER/MECHANIC BASIC METABOLIC PANEL STAT 06/07/2024 3:00 AM SCHOOL BUS DRIVER/MECHANIC CBC W/DIFF AUTOMATED STAT 06/07/2024 3:00 AM SCHOOL BUS DRIVER/MECHANIC HC URINALYSIS AUTO W/O MICRO STAT 06/07/2024 2:28 AM SCHOOL BUS DRIVER/MECHANIC US OB TRANSVAG STAT 05/08/2024 10:40 AM SCHOOL BUS DRIVER/MECHANIC HCG QUANT (SERUM)-CHORIONIC GONADOTROPIN STAT 05/08/2024 8:59 AM SCHOOL BUS DRIVER/MECHANIC HC BLOOD TYPING ABO STAT 05/08/2024 8 :56 AM SCHOOL BUS DRIVER/MECHANIC COMPREHENSIVE METABOLIC PANEL STAT 05/08/2024 8:56 AM SCHOOL BUS DRIVER/MECHANIC CBC W/DIFF AUTOMATED STAT 05/08/2024 8:56 AM SCHOOL BUS DRIVER/MECHANIC HC URINALYSIS AUTO W/O MICRO STAT 05/08/2024 8:55 AM SCHOOL BUS DRIVER/MECHANIC US OB TRANSVAG STAT 04/21/2024 3:00 AM SCHOOL BUS DRIVER/MECHANIC CT ABD+PEL W CON STAT 04/20/2024 11:2 7 PM SCHOOL BUS DRIVER/MECHANIC HC BLOOD TYPING ABO STAT 04/20/2024 9 :18 PM SCHOOL BUS DRIVER/MECHANIC HCG QUANT (SERUM)-CHORIONIC GONADOTROPIN STAT 04/20/2024 9:18 PM SCHOOL BUS DRIVER/MECHANIC COMPREHENSIVE METABOLIC PANEL STAT 04/20/2024 9:18 PM SCHOOL BUS DRIVER/MECHANIC CBC W/DIFF AUTOMATED STAT 04/20/2024 9:18 PM SCHOOL BUS DRIVER/MECHANIC TEST URINE STAT 04/20/2024 9:01 PM SCHOOL BUS DRIVER/MECHANIC URINALYSIS, AUTO, COMPLETE STAT 04/20/2024 9:01 PM SCHOOL BUS DRIVER/MECHANIC LIPID PANEL Routine 04/24/2019 8:04 AM SCHOOL BUS DRIVER/MECHANIC Essential hypertension Type 2 diabetes mellitus without complication, without long-term current use of insulin ([facility] H[facility]/HCC) HEMOGLOBIN, GLYCOSYLATED Routine 04/24/2019 8:04 AM SCHOOL BUS DRIVER/MECHANIC Type 2 diabetes mellitus without complication, without long-term current use of insulin ([facility]/HCC) HEPATITIS PANEL,ACUTE Routine 03/28/2015 9:43 AM SCHOOL BUS DRIVER/MECHANIC from Last 3 Months or Most Recently Relevant to Health Maintenance Results * (ABNORMAL) COMPREHENSIVE METABOLIC PANEL (06/18/2024 10:50 PM SCHOOL BUS DRIVER/MECHANIC) Only the most recent of4 resultswithin the time period is included. GLUCOSE 128(H) 70 - 99 MG/DL 06/18/2024 11:55 PM [facility] BUN 10 7 - 18 MG/DL 06/18/2024 11:55 PM [facility] CREATININE S/P/B 0.80 0.55 - 1.02 MG/DL 06/18/2024 11:55 PM [facility] SODIUM S/P/B 138 136 - 145 MMOL/L 06/18/2024 11:55 PM [facility] POTASSIUM S/P/B 3.4(L) 3.5 - 5.1 MMOL/L 06/18/2024 11:55 PM [facility] CHLORIDE S/P/B 104 100 - 108 MMOL/L 06/18/2024 11:55 PM [facility] CO2 25.0 21 - 32 MMOL/L 06/18/2024 11:55 PM [facility] CALCIUM S/P/B 9.0 8.5 - 10.1 MG/DL 06/18/2024 11:55 PM [facility] BILIRUBIN TOTAL S/P/B 0.1(L) 0.2 - 1.2 MG/DL 06/18/2024 11:55 PM [facility] Comment: THIS ASSAY IS NOT RECOMMENDED FOR PATIENTS UNDERGOING TREATMENT WITH ELTROMBOPAG DUE TO THE POTENTIAL FOR FALSELY ELEVATED RESULTS. TOTAL PROTEIN S/P/B 7.0 6.4 - 8.2 G/DL 06/18/2024 11:55 PM [facility] ALBUMIN S/P/B 3.3(L) 3.4 - 5.0 G/DL 06/18/2024 11:55 PM [facility] AST 15 15 - 37 U/L 06/18/2024 11:55 PM [facility] ALT 26 14 - 55 U/L 06/18/2024 11:55 PM [facility] ALKALINE PHOSPHATASE S/P/B 48(L) 50 - 136 U/L 06/18/2024 11:55 PM [facility] ANION GAP 9.0 5 - 15 MMOL/L 06/18/2024 11:55 PM [facility] BUN CREATININE RATIO 12.5 6 - 26 06/18/2024 11:55 PM [facility] A/G RATIO 0.9(L) 1.0 - 2.0 RATIO 06/18/2024 11:55 PM [facility] GFR ESTIMATE >90 >90 ML/MIN/1.7 3 M2 06/18/2024 11:55 PM [facility] Comment: NOTE: eGFR is not calculated for patients <18 years of age. This is an estimated GFR calculation using the new CKD EPI creatinine equation without race and so does not require a correction factor for race. This estimated GFR should not be used for calculating drug doses. 06/18/2024 10:5 0 PM SCHOOL BUS DRIVER/MECHANIC Cristela Davila MD LABORATORY Final Result Performing Organization Address City/State/[facility] Co de Phone Number [facility] [address] [place] [address], * HCG QUANTITATIVE SERUM (06/18/2024 10:50 PM SCHOOL BUS DRIVER/MECHANIC) Only the most recent of4 resultswithin the time period is included. HCG QUANTITATIVE 50,752 MIU/ML 06/18/19 11:55 PM SCHOOL BUS DRIVER/MECHANIC [facility] Comment: WEEKS OF REFERENCE RANGES NON- FEMALE 0-6 0.2 - 1 5 - 50 1 - 2 50 - 500 2 - 3 100 - 5000 3 - 4 500 - 10,000 4 - 5 1000 - 50,000 5 - 6 10,000 - 100,000 6 - 8 15,000 - 200,000 2 - 3 MONTHS 10,000 - 100,000 06/18/2024 10:5 0 PM SCHOOL BUS DRIVER/MECHANIC Cristela Davila MD LABORATORY Final Result Performing Organization Address [facility] de Phone Number [facility] [address] [place] [address], * (ABNORMAL) CBC W/DIFF AUTOMATED (06/18/2024 10:50 PM SCHOOL BUS DRIVER/MECHANIC) Only the most recent of5 resultswithin the time period is included. WBC 16.05(H) 4.50 - 11.00 x10'3/uL 06/18/2024 11:18 PM SCHOOL BUS DRIVER/MECHANIC [facility] RBC 4.27 4.20 - 5.40 x10'6/uL 06/18/2024 11:18 PM SCHOOL BUS DRIVER/MECHANIC [facility] HGB 12.8 12.0 - 16.0 G/DL 06/18/2024 11:18 PM [facility] HCT 37.1(L) 38.0 - 48.0 % 06/18/2024 11:18 PM SCHOOL BUS DRIVER/MECHANIC [facility] MCV 86.9 81.0 - 99.0 FL 06/18/2024 11:18 PM [facility] MCH 30.0 27.0 - 31.0 PG 06/18/2024 11:18 PM [facility] MCHC 34.5 32.0 - 36.0 G/DL 06/18/2024 11:18 PM [facility] RDW 15.5(H) 11.5 - 14.5 % 06/18/2024 11:18 PM [facility] PLT 244 130 - 400 x10'3/uL 06/18/2024 11:18 PM [facility] MPV 10.1 9.3 - 12.2 FL 06/18/2024 11:18 PM [facility] CBC COMMENT AUTOMATED RBC MORPHOLOGY AND PLATELET EVALUATION NORMAL 06/18/2024 11:18 PM [facility] NEUTROPHILS % 66.0 % 06/18/2024 11:18 PM [facility] LYMPHOCYTES % 22.1 % 06/18/2024 11:18 PM [facility] MONOCYTES % 8.9 % 06/18/2024 11:18 PM [facility] EOSINOPHILS 2.2 % 06/18/2024 11:18 PM [facility] BASOPHILS 0.4 % 06/18/2024 11:18 PM [facility] IMMATURE GRANS % 0.4 % 06/18/19 25 11:18 PM [facility] NRBC % 0.0 % 06/18/2024 11:18 PM [facility] ABS. NEUTROPHILS TOTAL 10.59(H) 1.80 - 7.70 x10'3/uL 06/18/2024 11:18 PM [facility] ABS. LYMPHOCYTES 3.55 1.00 - 4.80 x10'3/uL 06/18/2024 11:18 PM SCHOOL BUS DRIVER/MECHANIC [facility] ABS. MONOCYTES 1.43(H) 0.24 - 0.86 x10'3/uL 06/18/2024 11:18 PM SCHOOL BUS DRIVER/MECHANIC [facility] ABS. EOSINOPHILS 0.36 0.04 - 0.36 x10'3/uL 06/18/2024 11:18 PM SCHOOL BUS DRIVER/MECHANIC [facility] ABS. BASOPHILS 0.06 0.01 - 0.08 x10'3/uL 06/18/2024 11:18 PM SCHOOL BUS DRIVER/MECHANIC [facility] ABS. IMMATURE GRANULOCYTES 0.06 0.00 - 0.49 x10'3/uL 06/18/2024 11:18 PM SCHOOL BUS DRIVER/MECHANIC [facility] ABS. NUCLEATED RBC'S 0.00 0.00 - 0.01 x10'3/uL 06/18/2024 11:18 PM SCHOOL BUS DRIVER/MECHANIC [facility] 06/18/2024 10:5 0 PM SCHOOL BUS DRIVER/MECHANIC Cristela Davila MD LABORATORY Final Result [facility] [address] [place] [address], [place] [phone] * US OB <14WKS TA (06/13/2024 2:53 PM SCHOOL BUS DRIVER/MECHANIC) Only the most recent of2 resultswithin the time period is included. Anatomical Region Laterality Modality Abdomen Ultrasound 06/13/2024 2:56 PM SCHOOL BUS DRIVER/MECHANIC Impressions 06/13/2024 2:59 PM SCHOOL BUS DRIVER/MECHANIC IMPRESSION: 1. Single live intrauterine with an estimated gestational age of 11 weeks 6 days based on crown-rump length. 2. Small-volume subchorionic hemorrhage. 3. Normal sonographic appearance of the left ovary. Nonvisualization of the right ovary. Referred By: Interpreted By: Roberto Mendiola MD, 06/13/2024 2:56 PM Narrative 06/13/2024 2:59 PM SCHOOL BUS DRIVER/MECHANIC [facility] [address] [place] [address] Examination: US OB TRANSVAG Indication: bleeding at [...] * There is a single intrauterine . [place] rump length of 5.06 cm corresponds with an estimated gestational age of 11 weeks 6 days. LMP of 03/26/2024 corresponds with an estimated gestational age of 11 weeks 2 days. * Yolk sac is visualized. heart tones are present at 166 bpm. It is too early to evaluate placental location or measure amniotic fluid index. Small-volume subchorionic hemorrhage is seen. This measures approximately 1.9 x 0.8 x 1.7 cm. * Uterus measures 11.6 x 9.1 x 3.2 cm. Adnexa: * Right ovary is not visualized on the images provided are noted likely secondary to overlying bowel gas. * Left ovary is normal in appearance and demonstrates expected arterial and venous blood flow, measuring 4.4 x 3.1 x 2.9 cm. Other: * Bladder is partially decompressed and unremarkable. * There is no free fluid in the pelvis. Procedure Note Roberto Mendiola MD - 06/15/2024 [facility] [address] [place] [address] Examination: US OB TRANSVAG Indication: bleeding at [...] * There is a single intrauterine . [place] rump length of 5.06 cmcorresponds with an [...] Olvera MD ULTRASOUND Final Result * (ABNORMAL) BASIC METABOLIC PANEL (06/07/2024 3:00 AM SCHOOL BUS DRIVER/MECHANIC) GLUCOSE 165(H) 70 - 99 MG/DL 06/07/2024 3:52 AM SCHOOL BUS DRIVER/MECHANIC [facility] BUN 9 7 - 18 MG/DL 06/07/2024 3:52 AM [facility] CREATININE S/P/B 0.44(L) 0.55 - 1.02 MG/DL 06/07/2024 3:52 AM [facility] SODIUM S/P/B 129(L) 136 - 145 MMOL/L 06/07/2024 3:52 AM [facility] POTASSIUM S/P/B 3.7 3.5 - 5.1 MMOL/L 06/07/2024 4:11 AM [facility] CHLORIDE S/P/B 102 100 - 108 MMOL/L 06/07/2024 3:52 AM [facility] CO2 21.5 21 - 32 MMOL/L 06/07/2024 3:52 AM [facility] CALCIUM S/P/B 8.7 8.5 - 10.1 MG/DL 06/07/2024 3:52 AM [facility] ANION GAP 5.5 5 - 15 MMOL/L 06/07/2024 3:52 AM [facility] BUN CREATININE RATIO 20.5 6 - 26 06/07/2024 3:52 AM [facility] GFR ESTIMATE >90 >90 ML/MIN/1.7 3 M2 06/07/2024 3:52 AM [facility] Comment: NOTE: eGFR is not calculated for patients <18 years of age or gender unknown. This is an estimated GFR calculation using the new CKD EPI creatinine equation without race and so does not require a correction factor for race. This estimated GFR should not be used for calculating drug doses. 06/07/2024 3:00 AM SCHOOL BUS DRIVER/MECHANIC us Michael Sharp MD LABORATORY Final Resul t [facility] [address] [place] [address], [place] [phone] * URINALYSIS (06/07/2024 2:28 AM SCHOOL BUS DRIVER/MECHANIC) Only the most recent of2 resultswithin the time period is included. COLOR (U) LIGHT YELLOW 06/07/2024 2:39 AM [facility] TRANSPARENCY CLEAR 06/07/2024 2:39 AM [facility] SPECIFIC GRAVITY (U) 1.015 1.002 - 1.030 06/07/2024 2:39 AM [facility] U PH 6.0 4.5 - 8.0 06/07/2024 2:39 AM [facility] LEUKOCYTES (U) NEGATIVE NEGATIVE 06/07/2024 2:39 AM [facility] NITRITES NEGATIVE NEGATIVE 06/07/2024 2:39 AM [facility] PROTEIN RANDOM (U) NEGATIVE NEGATIVE 06/07/2024 2:39 AM [facility] GLUCOSE (U) NEGATIVE NEGATIVE 06/07/2024 2:39 AM [facility] KETONES MG/DL (U) NEGATIVE NEGATIVE 06/07/2024 2:39 AM [facility] UROBILINOGEN NORMAL NORMAL EU/DL 06/07/2024 2:39 AM [facility] BILIRUBIN (U) NEGATIVE NEGATIVE 06/07/2024 2:39 AM [facility] BLOOD (U) NEGATIVE NEGATIVE 06/07/2024 2:39 AM [facility] WBC/HPF MICROSCOPIC ANALYSIS NOT DONE ON URINES WITH NEGATIVE BIOCHEMICAL TESTS /HPF 06/07/2024 2:39 AM [facility] URINE SPECIMEN OBTAINED BY CLEAN CATCH PROCEDURE / Unknown 06/07/2024 2:28 AM SCHOOL BUS DRIVER/MECHANIC Michael Sharp MD URINE ORDERABLES Final Resu lt [facility] [address] [place] [address], * US OB TRANSVAG (05/08/2024 10:40 AM SCHOOL BUS DRIVER/MECHANIC) Only the most recent of2 resultswithin the time period is included. Anatomical Region Laterality Modality Abdomen, Pelvis Ultrasound 05/08/2024 10:4 4 AM SCHOOL BUS DRIVER/MECHANIC Impressions 05/08/2024 10:53 AM SCHOOL BUS DRIVER/MECHANIC IMPRESSION:===== 1. Single viable intrauterine gestation with positive cardiac activity seen. . Estimated gestational age is 6 weeks 1 day +/- 0 weeks 3 days with an estimated date of confinement of 12/31/2024.. 2. Multiple areas of hemorrhage suspected adjacent to the gestational sac in the lower uterine segment. Other etiologies are possible. Close interval follow-up is recommended. 3. Nonspecific hypoechoic Appearance of the right ovary. Follow-up is recommended. Referred By: Interpreted By: Jarrod Case MD, 05/08/2024 10:44 AM Narrative 05/08/2024 10:53 AM SCHOOL BUS DRIVER/MECHANIC [address] [address] EXAMINATION: OB ultrasound with transvaginal imaging EXAM DATE/TIME: 05/08/2024 10:13 AM REASON FOR EXAM: heavy vaginal bleeding, early COMPARISON: 04/21/2024 TECHNIQUE: Transvaginal ultrasound evaluation of the pelvic contents was performed for analysis of grayscale and color Doppler imaging characteristics. FINDINGS: Single intrauterine gestation is noted. . heart rate is 109 beats per minute. Yolk sac is visualized. mean crown-rump length is 0.4 centimeters. This projects to a gestational age of 6 weeks 1 day +/- 0 weeks 3 days. Estimated date of confinement is 12/31/2024 . Hemorrhage, fluid or other abnormality adjacent to gestational sac is noted measuring 1.9 x 0.2 cm. Larger hypoechoic area is seen in the endometrial cavity in the lower uterine segment. Hemorrhage in this area is also possible. This measures 2.6 x 1.1 cm on sagittal image. The ovaries are right side only. This is fairly diffusely hypoechoic. Is seen measuring 2.6 x 2.8 x 3.1 cm. Subtle internal color-flow enhancement is noted. ===== Procedure Note Jarrod Case MD - 05/08/2024 [facility] [address] [place], [place] [address] EXAMINATION: OB ultrasound with transvaginal imaging EXAM [...] Jarrod Case MD, 05/08/2024 10:44 AM Hue uPckett [facility] ULTRASOUND Final Resul t * BLOOD TYPING, ABO AND RH (05/08/2024 8:56 AM SCHOOL BUS DRIVER/MECHANIC) Only the most recent of2 resultswithin the time period is included. ABO/RH A POSITIVE 05/08/2024 10:34 AM SCHOOL BUS DRIVER/MECHANIC [facility] 05/08/2024 8:56 AM SCHOOL BUS DRIVER/MECHANIC Hue Puckett [facility] BLOOD BANK TEST ORDERABLES Final Result [facility] [address] [place] [address], [place] [phone] * CT ABD+PEL W IV CON ONLY (04/20/2024 11:27 PM SCHOOL BUS DRIVER/MECHANIC) Anatomical Region Laterality Modality Abdomen Computed Tomogra phy 04/20/2024 11:3 6 PM SCHOOL BUS DRIVER/MECHANIC Impressions 04/20/2024 11:39 PM SCHOOL BUS DRIVER/MECHANIC IMPRESSION: 1. No CT evidence of acute abdominopelvic pathology. 2. Small-moderate sized fat filled periumbilical hernia redemonstrated. PQRS ABDOMINAL: [id number] Referred By: Interpreted By: Nicolas Lema, 04/20/2024 11:36 PM Narrative 04/20/2024 11:39 PM SCHOOL BUS DRIVER/MECHANIC [facility] [address] [place] [address] HISTORY: Abdominal pain COMPARISON: 10/29/2023 TECHNIQUE: CT abdomen and pelvis performed utilizing thin-slice axial technique following IV administration of contrast. A dose-lowering technique was used for this procedure, which may include, but is not limited to, dose-reduction technique, automated exposure control, the use of iterative reconstruction, and ALARA (As Low As Reasonably Achievable) / Image Gently techniques. FINDINGS: Gallbladder surgically absent. Liver, biliary tracts, spleen, kidneys, adrenal glands, pancreas, bladder, and uterus unremarkable. No adnexal or ovarian mass or significant cysts. GI tract shows no obstruction or other acute or significant pathology. Appendix is normal. No abdominal or pelvic lymphadenopathy. Major vascular structures of normal course and caliber with mild calcific plaque in infrarenal abdominal aorta and iliac arteries. There is no free fluid or free air. Small-moderate periumbilical fat filled hernia redemonstrated. Abdominal wall and inguinal regions otherwise unremarkable. Included lung bases clear. Visualized bones show no suspicious lytic or blastic lesions. Procedure Note Nicolas Lema MD - 04/20/2024 [facility] [address] [place] [address] HISTORY: Abdominal pain COMPARISON: 10/29/2023 TECHNIQUE: CT [...] * (ABNORMAL) TEST URINE (04/20/2024 9:01 PM SCHOOL BUS DRIVER/MECHANIC) URINE HCG TEST POSITIVE( A) NEGATIVE 04/20/2024 9:39 PM SCHOOL BUS DRIVER/MECHANIC [facility] Comment: VERY DILUTE URINE SPECIMENS MAY NOT CONTAIN BELT AND LINK ASSEMBLY SUPERVISOR LEVELS OF HCG. IF IS STILL SUSPECTED, A SERUM HCG TEST IS RECOMMENDED. URINE SPECIMEN FROM URETHRA / Unknown 04/20/2024 9:01 PM SCHOOL BUS DRIVER/MECHANIC us Grant Reeys MD URINE ORDERABLES Final Res ult [facility] [address] [place] [address], [place] [phone] * URINALYSIS, AUTO, COMPLETE (04/20/2024 9:01 PM [employer]CHOOL BUS DRIVER/MECHANIC) COLOR (U) YELLOW 04/20/2024 9:50 PM SCHOOL BUS DRIVER/MECHANIC [facility] TRANSPARENCY CLEAR 04/20/2024 9:50 PM SCHOOL BUS DRIVER/MECHANIC [facility] SPECIFIC GRAVITY (U) 1.015 1.000 - 1.030 04/20/2024 9:50 PM SCHOOL BUS DRIVER/MECHANIC [facility] U PH 6.5 5.0 - 9.0 04/20/2024 9:50 PM SCHOOL BUS DRIVER/MECHANIC [facility] LEUKOCYTES (U) NEGATIVE NEGATIVE 04/20/2024 9:50 PM [facility] NITRITES NEGATIVE NEGATIVE 04/20/2024 9:50 PM SCHOOL BUS DRIVER/MECHANIC [facility] PROTEIN RANDOM (U) NEGATIVE NEGATIVE 04/20/2024 9:50 PM [facility] GLUCOSE (U) NEGATIVE NEGATIVE 04/20/2024 9:50 PM SCHOOL BUS DRIVER/MECHANIC [facility] KETONES MG/DL (U) NEGATIVE NEGATIVE 04/20/2024 9:50 PM SCHOOL BUS DRIVER/MECHANIC [facility] BILIRUBIN (U) NEGATIVE NEGATIVE 04/20/2024 9:50 PM SCHOOL BUS DRIVER/MECHANIC [facility] BLOOD (U) NEGATIVE NEGATIVE 04/20/2024 9:50 PM SCHOOL BUS DRIVER/MECHANIC [facility] WBC/HPF NONE SEEN 0 - 5 /HPF 04/20/2024 9:50 PM SCHOOL BUS DRIVER/MECHANIC [facility] RBC/HPF NONE SEEN 0 - 5 /HPF 04/20/2024 9:50 PM SCHOOL BUS DRIVER/MECHANIC [facility] EPI/HPF RARE /HPF 04/20/2024 9:50 PM SCHO[employer] BUS DRIVER/MECHANIC [facility] [facility] URINE SPECIMEN OBTAINED BY CLEAN CATCH PROCEDURE / Unknown 04/20/2024 9:01 PM SCHOOL BUS DRIVER/MECHANIC Grant Reyes MD URINE ORDERABLES Final Res ult [facility] [address] [place] [address], [place] [phone] * HEMOGLOBIN, GLYCOSYLATED (04/24/2019 8:04 AM SCHOOL BUS DRIVER/MECHANIC) HGB A1C 6.2 4.2 - 6.3 % [facility] Comment: Note: Hemoglobinopathies such as HbF, HbS, etc. may give incorrect results with this test. ESTIMATED AVG GLUCOSE 120 mg/dL [facility] Comment: (This value is a calculated estimate of the mean blood glucose over the last 60 days based on the patient's HgbA1c value. 04/24/2019 8:04 AM SCHOOL BUS DRIVER/MECHANIC 04/24/2019 8:04 AM SCHOOL BUS DRIVER/MECHANIC Shital Mancini [facility] Final Resul t Performing Organization Address City/[facility]/ZIP Co de Phone Number [address] [address] * (ABNORMAL) LIPID PANEL (04/24/2019 8:04 AM SCHOOL BUS DRIVER/MECHANIC) CHOLESTEROL 226(H) 0 - 200 mg/dL [facility] TRIGLYCERIDES 224(H) 0 - 150 mg/dL [facility] HDL 32 0 - 40 mg/dL [facility] LDL (CALCULATED) 149(H) 10 - 130 mg/dL [facility] CARDIO RISK 7 [facility] Comment: CHOLESTEROL LEVELS AND CHD RISK INTERPRETATIONS CHOLESTEROL LDL DESIRABLE < 200 mg/dL < 130 mg/dL BORDERLINE 200-239 mg/dL 130-159 mg/dL HIGH > 240 mg/dL > 160 mg/dL CHD RISK FACTORS CHOL/HDL RATIO MALE FEMALE BELOW AVG. 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 04/24/2019 8:04 AM SCHOOL BUS DRIVER/MECHANIC Shital Mancini [facility] Final Resul t Performing Organization Address City/[facility]/ZIP Co de Phone Number [address] [address] * HEPATITIS PANEL,ACUTE (03/28/2015 9:43 AM SCHOOL BUS DRIVER/MECHANIC) HAV IGM NON-REACTIV E NON-REAC TIVE [facility] [...] CONVERSION Comment: THIS TEST WAS PERFORMED AT [facility] [id number] [place] [address] 03/28/2015 9:43 AM SCHOOL BUS DRIVER/MECHANIC 03/28/2015 9:43 AM SCHOOL BUS DRIVER/MECHANIC Narrative [facility] TO EPIC CONVERSION - 03/30/2015 11:23 AM SCHOOL BUS DRIVER/MECHANIC This lab was migrated from [facility] and may be missing annotations or result text, please check the Media tab for the most complete results. [facility] Final Resul t [facility] TO EPIC CONVERSION from Last 3 Months or Most Recently Relevant to Health Maintenance Insurance [facility] Advance Directives Documents on File Type Date Recorded Patient [place] Pilot Expl anation Advance Directives and Living Will 09/12/2016 12:00 AM ADVANCED DIRECTIVES Care Teams Hazardous Material Specialist Relationship Specialty Start Date End Date Kareem Domingo MD [address] [place] [address] [place] [address] PCP - General FAMILY PRACTICE 04/20/24
[2024-07-17 15:59] LABS: OBXCEM ROM Plus Negative (Negative)
--- NOTE | 2024-07-17 16:00 | PC.NURSE ---
Addendum entered by Ebony Tubbs RN 07/17/24 16:03: Called Dr. Cloud at 1534. Original Note: Called Dr. Cloud with pt status. Informed of pt complaining of leaking. ROM plus negative. heart tones doppled 165 at 16weeks, 1 day gestation. Pt denies cramping or contractions. May D/C home.
== END 2024-07-17 15:35 | disposition home or self-care (01) ==
LOC: ANHOBOP 14:57 → ANHOBPP 14:58
PROVIDERS: Obstetrics & Gynecology; PCP Emergency Medicine; Visit Provider Obstetrics & Gynecology
DX: O42.90 Premature rupture of membranes, unspecified as to length of time between rupture and onset of labor, unspecified weeks of gestation (principal); Z3A.00 Weeks of gestation of pregnancy not specified
CPT/HCPCS: 84112; 99199

== ENCOUNTER 2024-07-20 07:24 | Outpatient (CLI) | payer BC, SELFPAY ==
--- OUTSIDE RECORDS SUMMARY | 2024-07-20 07:32 | XMS_ITS | Clinical Summary ---
Author Organization [facility] [employer] Address [address] [place] [address] Care Team Providers Care Pile Header Name Role Phone Unknown, Provider Primary Care Provider Unavaila ble Source Comments [facility],non-owned Affiliates and Associated Physician Practices is amultiple site organization consisting of ambulatory clinics and hospital sitesin [place], [place], [place] and [place]. This disclosure is being madepursuant to the Care Everywhere program and may not contain all information available regarding this patient. Last updated 18.[facility] [employer] Allergies Active Allergy Reactions Criticality Noted Date [...] Glucagon (Baqsimi One Pack) 3 MG/DOSE POWD [place] 1 Each into the nose as needed [...] Department Care Team Description 06/30/2024 8:05 AM [facility] - 06/30/2024 11:59 PM [facility] Hospital Encounter [facility] [address] [place] [address] Liu Taveras MD Gross, Gilad A, MD Discharge Disposition: Home or Self Care 06/30/2024 8:04 AM [facility] Hospital Encounter [facility] [address] [place] [address] Liu Taveras MD Gross, Gilad A, MD Discharge Disposition: Home or Self Care 06/30/2024 8:04 AM SIGN BUILDER SUPERVISOR Hospital Encounter [facility] [address] [place] [address] Liu Taveras MD Gross, Gilad A, MD Discharge Disposition: Home or Self Care 06/16/2024 10:20 AM SIGN BUILDER SUPERVISOR - 06/16/2024 11:59 PM SIGN BUILDER SUPERVISOR Hospital Encounter [facility] [address] [place] [address] Stu Gonzalez MD Discharge Disposition: Home or [...] Comments Blood Pressure 135/80 06/30/2024 9:14 AM SIGN BUILDER SUPERVISOR Pulse 98 06/30/2024 9:14 AM SIGN BUILDER SUPERVISOR Temperature - - Respiratory Rate 18 06/16/2024 10:4 0 AM SIGN BUILDER SUPERVISOR Oxygen Saturation - - Inhaled Oxygen Concentration - - Weight 111.1 kg (244 lb 14.4 oz) 06/30/2024 9:14 AM SIGN BUILDER SUPERVISOR Height 165.1 cm (5' 5 ) 06/30/2024 9:14 AM SIGN BUILDER SUPERVISOR Body Mass Index 40.75 06/30/2024 9:14 AM SIGN BUILDER SUPERVISOR Plan of Treatment Upcoming Encounters Date Type Department Care Team (Late st Contact Info) Description 07/21/2024 2:30 PM SIGN BUILDER SUPERVISOR Hospital Encounter [facility] [address] [place] [address] Stu Gonzalez MD [facility] [address] 08/11/2024 1:00 PM CDT Appointment [facility] [address] [place] [address] Health Maintenance Due Date Last Done Comments [...] SONOGRAM - COMPLETE Routine 06/30/2024 8:17 AM SIGN BUILDER SUPERVISOR Encounter for ultrasound (HCC) Primigravida, antepartum (HCC) Type 2 diabetes mellitus without complication, unspecified whether senior living insulin use (HCC) Chronic hypertension affecting (HCC) Obesity in (HCC) BMI 40.0-44.9, adult (HCC) History of PCOS History of umbilical hernia 13 weeks gestation of (HCC) from Last 3 Months Results * SONOGRAM - COMPLETE (06/30/2024 8:17 AM SIGN BUILDER SUPERVISOR) Linked Results Indication ======== Diabetes mellitus, type [...] 1 Dating ====== Date Details Gest. age JOHAAN Stated JOHANA 13 w + 5 d [...] 0 lb 3 oz EFW by Hadlock ([id number]) appropriate Growth Overview = Exam date GA [...] and transvaginal cervical length Coding ====== Procedures 16589: 1st Trimester [employer] PACS Anatomical Region Laterality Modality Other 06/30/2024 8:17 AM SIGN BUILDER SUPERVISOR Kody Mark MD [facility] ORDERABLES from Last 3 Months Care Teams Pile Header Relationship Specialty Start Date End Date Unknown, Provider PCP - General 06/16/24
--- OUTSIDE RECORDS SUMMARY | 2024-07-20 07:32 | XMS_ITS | Patient Health Summary ---
Author Organization [facility] Address [address] [place] [address] Care Team Providers Care Night Baker Name Role Phone Unknown, Provider Primary Care Provider Unavaila ble Note from [facility],non-owned Affiliates and Associated Physician Practices is amultiple site organization consisting of ambulatory clinics and hospital sitesin [place], [place], [place] and [place]. This disclosure is being madepursuant to the Care Everywhere program and may not contain all information available regarding this patient. Last updated 18.[facility] Allergies * Blackberry Flavor(Unknown) * Naproxen(Rash) -Medium [...] (Baqsimi One Pack) 3 MG/DOSE POWD(Started 06/19/2024) [place] 1 Each into the nose as needed [...] Comments Blood Pressure 135/80 06/30/2024 9:14 AM PRESERVATIVE FILLER MACHINE OPERATOR Pulse 98 06/30/2024 9:14 AM PRESERVATIVE FILLER MACHINE OPERATOR Temperature - - Respiratory Rate 18 06/16/2024 10:4 0 AM PRESERVATIVE FILLER MACHINE OPERATOR Oxygen Saturation - - Inhaled Oxygen Concentration - - Weight 111.1 kg (244 lb 14.4 oz) 06/30/2024 9:14 AM PRESERVATIVE FILLER MACHINE OPERATOR Height 165.1 cm (5' 5 ) 06/30/2024 9:14 AM PRESERVATIVE FILLER MACHINE OPERATOR Body Mass Index 40.75 06/30/2024 9:14 AM PRESERVATIVE FILLER MACHINE OPERATOR Procedures * SONOGRAM - COMPLETE(Performed 06/30/2024) Performed for Encounter for ultrasound ([facility]), Primigravida, antepartum (HCC), Type 2 diabetesmellitus without complication, unspecified whether senior partner insulin use (HCC), Chronic hypertension affecting (HCC), Obesity in (HCC), BMI 40.0-44.9, adult ([facility]), History of PCOS, History of umbilical hernia, 13 weeks gestation of ([facility]) Results * SONOGRAM - COMPLETE (06/30/2024 8:17 AM PRESERVATIVE FILLER MACHINE OPERATOR) Linked Results Indication ======== Diabetes mellitus, type [...] 0 lb 3 oz EFW by Hadlock ([id number]) appropriate Growth Overview = Exam date GA [...] and transvaginal cervical length Coding ====== Procedures 71272: 1st Trimester Book of OddsS Anatomical Region Laterality Modality Other 06/30/2024 8:17 AM PRESERVATIVE FILLER MACHINE OPERATOR Kody Mark MD [facility] ORDERABLES Care Teams Night Baker Relationship Specialty Start Date End Date Unknown, Provider PCP - General 06/16/24
--- OUTSIDE RECORDS SUMMARY | 2024-07-20 07:32 | XMS_ITS | Referral Summary ---
Author Organization [facility] Address [address] [place] [address] Care Team Providers Care Blocking Machine Operator Second Name Role Phone Unknown, Provider Primary Care Provider Unavaila ble Source Comments [facility],non-owned Affiliates and Associated Physician Practices is amultiple site organization consisting of ambulatory clinics and hospital sitesin [place], [place], [place] and [place]. This disclosure is being madepursuant to the Care Everywhere program and may not contain all information available regarding this patient. Last updated 18.[facility] Encounters Date Type Department Care Team Description 06/30/2024 8:05 AM DEPUTY CITY CLERK - 06/30/2024 11:59 PM DEPUTY CITY CLERK Hospital Encounter [facility] [address] [place] [address] Liu Taveras MD Gross, Gilad A, MD Discharge Disposition: Home or Self Care 06/30/2024 8:04 AM DEPUTY CITY CLERK Hospital Encounter [facility] [address] [place] [address] Liu Taveras MD Gross, Gilad A, MD Discharge Disposition: Home or Self Care 06/30/2024 8:04 AM DEPUTY CITY CLERK Hospital Encounter [facility] [address] [place] [address] Liu Taveras MD Gross, Gilad A, MD Discharge Disposition: Home or Self Care 06/16/2024 10:20 AM DEPUTY CITY CLERK - 06/16/2024 11:59 PM DEPUTY CITY CLERK Hospital Encounter [facility] [address] [place] [address] Stu Gonzalez MD Discharge Disposition: Home or [...] 2 diabetes mellitus during in first trimester ([facility]) Use test strip to check Blood glucose four times daily. Check fasting glucose, and then one hour after each meal for breakfast, lunch, and dinner. 150 strip 10 06/16/2024 Active Lancets (ONETOUCH DELICA PLUS 33G EXTRA FINE LANCET)Indicati ons:Pre-existin g type 2 diabetes mellitus during in first trimester ([facility]) Use lancet to check Blood glucose four times daily. Check fasting glucose, and then one hour after each meal for breakfast, lunch, and dinner. 150 Each 06/16/2024 Active insulin pen needle (Novofine) 32G X 6 MM MISCIndications :Pre-existing type 2 diabetes mellitus during in first trimester ([facility]) 1 (one) Each by Injection route 2 times daily 100 Each 06/19/2024 Active Alcohol Swabs Use as needed for insulin administration 100 Each 06/19/2024 Active Glucagon (Baqsimi One Pack) 3 MG/DOSE POWD [place] 1 Each into the nose as needed [...] Comments Blood Pressure 135/80 06/30/2024 9:14 AM DEPUTY CITY CLERK Pulse 98 06/30/2024 9:14 AM DEPUTY CITY CLERK Temperature - - Respiratory Rate 18 06/16/2024 10:4 0 AM DEPUTY CITY CLERK Oxygen Saturation - - Inhaled Oxygen Concentration - - Weight 111.1 kg (244 lb 14.4 oz) 06/30/2024 9:14 AM DEPUTY CITY CLERK Height 165.1 cm (5' 5 ) 06/30/2024 9:14 AM DEPUTY CITY CLERK Body Mass Index 40.75 06/30/2024 9:14 AM DEPUTY CITY CLERK Plan of Treatment Upcoming Encounters Date Type Department Care Team (Late st Contact Info) Description 07/21/2024 2:30 PM DEPUTY CITY CLERK Hospital Encounter [facility] [address] [place] [address] Stu Gonzalez MD [address] [address] 08/11/2024 1:00 PM CDT Appointment [facility] [address] [place] [address] Procedures Procedure Name Priority Date/Time Associated Diagnosis Comments SONOGRAM - COMPLETE Routine 06/30/2024 8:17 AM DEPUTY CITY CLERK Encounter for ultrasound (HCC) Primigravida, antepartum (HCC) Type 2 diabetes mellitus without complication, unspecified whether correction insulin use (HCC) Chronic hypertension affecting (HCC) Obesity in (HCC) BMI 40.0-44.9, adult ([facility]) History of PCOS History of umbilical hernia 13 weeks gestation of ([facility]) from Last 3 Months Results * SONOGRAM - COMPLETE (06/30/2024 8:17 AM DEPUTY CITY CLERK) Linked Results Indication ======== Diabetes mellitus, type [...] 0 lb 3 oz EFW by Hadlock ([id number]) appropriate Growth Overview = Exam date GA [...] and transvaginal cervical length Coding ====== Procedures 42674: 1st Trimester [employer] PACS Anatomical Region Laterality Modality Other 06/30/2024 8:17 AM DEPUTY CITY CLERK Kody Mark MD [facility] ORDERABLES from Last 3 Months Care Teams Blocking Machine Operator Second Relationship Specialty Start Date End Date Unknown, Provider PCP - General 06/16/24
--- OUTSIDE RECORDS SUMMARY | 2024-07-20 07:33 | XMS_ITS | Clinical Summary ---
Author Organization [facility] Address [address] [place] [address] Phone Care Team Providers Care Ecommerce Project Manager Name Role Phone Kareem Domingo MD Primary Care Provider [phone] Allergies Active Allergy Reactions Criticality Noted Date [...] on file Legal Sex Female 12:36 AM BANQUET SERVER ON CALL Gender Identity Not on file Sexual Orientation Not on file Last Filed Vital Signs Vital Sign Reading Time Taken Comments Blood Pressure 154/87 08/04/2023 4:08 AM CDT Pulse 96 08/04/2023 12:44 AM BANQUET SERVER ON CALL Temperature 36.2 C (97.2 F) 08/04/2023 12:44 AM BANQUET SERVER ON CALL Respiratory Rate 18 08/04/2023 12:44 AM BANQUET SERVER ON CALL Oxygen Saturation 97% 08/04/2023 12:44 AM BANQUET SERVER ON CALL Inhaled Oxygen Concentration - - Weight 111.1 kg (245 lb) 08/04/2023 12:44 AM BANQUET SERVER ON CALL Height 167.6 cm (5' 6 ) 08/04/2023 12:44 AM BANQUET SERVER ON CALL Body Mass Index 39.54 08/04/2023 12:44 AM BANQUET SERVER ON CALL Plan of Treatment Health Maintenance Due Date [...] to complete this topic Insurance Care Teams Ecommerce Project Manager Relationship Specialty Start Date End Date Kareem Domingo MD [address] [place] [phone] PCP - General Family Medicine 08/04/23
[2024-07-20 07:50] LABS: Collection Time Urine 24 HOURS
[2024-07-20 08:25] LABS: Alanine Aminotransferase 24 U/L (6-35); Albumin Level 3.4 g/dL (3.5-5.1); Alkaline Phosphatase 48 U/L (38-126); Anion Gap 8 mmol/L (4-12); Aspartate Amino Transferase 19 U/L (14-36); Bilirubin,Total 0.4 mg/dL (0.2-1.3); Blood Urea Nitrogen 5 mg/dL (7-17); Calcium 8.5 mg/dL (8.4-10.2); Carbon Dioxide 21 mmol/L (22-30); Chloride 108 mmol/L (98-107); Estimated Glomerular Filt Rate > 60; Glucose 94 mg/dL (65-110); Potassium 3.8 mmol/L (3.4-5.0); Sodium 137 mmol/L (137-145)
[2024-07-20 10:30] LABS: Creatinine Urine 55.7 mg/dL; Patient Weight 244 Lbs; Total Protein Urine Random 17 mg/dL
[2024-07-20 11:25] LABS: Total Protein Urine 24 Hr 527 mg/24hr (28-141); Total Volume 24 Hour Urine 3100 ml
[2024-07-20 11:48] LABS: Creatinine Clearance Urine 179.1 ml/min (75-125); Serum Creat 0.54
== END 2024-07-20 07:25 | disposition home or self-care (01) ==
PROVIDERS: PCP Emergency Medicine
DX: O10.919 Unspecified pre-existing hypertension complicating pregnancy, unspecified trimester (principal); E11.9 Type 2 diabetes mellitus without complications; Z3A.00 Weeks of gestation of pregnancy not specified
CPT/HCPCS: 36415; 80053; 81050; 82575; 84156

== ENCOUNTER 2024-07-28 10:37 | Outpatient (CLI) | payer BC, SELFPAY ==
[2024-07-28 11:24] LABS: Basophils Absolute Auto 0.1 K/mm3 (0.0-0.1); Basophils Percent Auto 0.4 % (0.2-1.2); Eosinophils Absolute Auto 0.2 K/mm3 (0-0.3); Eosinophils Percent Auto 1.2 % (0-4.4); Hematocrit 36.3 % (37.0-47.0); Hemoglobin 12.5 g/dL (12.0-15.0); Immature Granulocyte Absolute 0.04 K/mm3 (0.00-0.031); Immature Granulocyte Percent A 0.3 % (0-0.5); Lymphocytes Absolute Auto 2.63 K/mm3 (0.9-3.2); Lymphocytes Percent Auto 20.8 % (18.3-44.2); Mean Corpuscular HGB Conc 34.4 g/dl (32-36); Mean Corpuscular Hemoglobin 30.7 pg (26-34); Mean Corpuscular Volume 89.2 fl (80-100); Mean Platelet Volume 10.2 fl (7.4-10.4); Monocytes Absolute Auto 1.2 K/mm3 (0.1-0.6); Monocytes Percent Auto 9.5 % (2.6-8.5); Neutrophils Absolute Auto 8.6 K/mm3 (1.3-6.7); Neutrophils Percent Auto 67.8 % (45.5-73.1); Platelet Count Result 253 k/mm3 (150-375); Red Blood Count 4.07 M/mm3 (4.2-5.4); Red Cell Distribution Width 14.6 % (11.5-14.5); White Blood Count 12.6 K/mm3 (4.5-10.0)
[2024-07-28 11:47] LABS: Creatinine Urine 29.1 mg/dL; Total Protein Urine Random 18 mg/dL; Ur Ttl Prot Creatinine Ratio 0.62 mg/mg (0-0.20)
[2024-07-28 12:10] LABS: Add Urine Microscopic? NO; Appearance Urine Clear (Clear); Bilirubin Urine Negative (Negative); Blood Urine Negative (Negative); Color Urine Yellow (Yellow); Glucose Urine UA Negative (Negative); Ketones Urine Negative (Negative); Leukocyte Esterase Ur Negative LEU/UL (Negative); Nitrate Urine Negative (Negative); Protein Urine Negative (Negative); Specific Grav Ur 1.006 (1.001-1.035); Urobilinogen Urine 0.2 mg/dL (<2.0)
[2024-07-28 12:23] VITALS: BP 131/75; PULSE 87
[2024-07-28 12:31] VITALS: BP 119/68; PULSE 74
[2024-07-28 12:46] VITALS: BP 129/86; PULSE 79
[2024-07-28 13:01] VITALS: BP 124/68; PULSE 77
[2024-07-28 13:16] VITALS: BP 136/93; PULSE 78
[2024-07-28 13:31] VITALS: BP 124/78; PULSE 76
--- NOTE | 2024-07-28 13:40 | PC.NURSE ---
7736--Phone call from Dr. Jarrod cuba: lab results, v.s., and u/s. Report from lab that her analyzer is down and unsure how long it will take to get results for CMP and uric acid. Orders to DC home and have pt. keep her f/u appt. with M.
[2024-07-28 13:47] LABS: Alanine Aminotransferase 24 U/L (6-35); Albumin Level 3.8 g/dL (3.5-5.1); Alkaline Phosphatase 50 U/L (38-126); Anion Gap 13 mmol/L (4-12); Aspartate Amino Transferase 20 U/L (14-36); Bilirubin,Total 0.3 mg/dL (0.2-1.3); Blood Urea Nitrogen 6 mg/dL (7-17); Calcium 9.6 mg/dL (8.4-10.2); Carbon Dioxide 19 mmol/L (22-30); Chloride 106 mmol/L (98-107); Estimated Glomerular Filt Rate > 60; Glucose 98 mg/dL (65-110); Potassium 3.9 mmol/L (3.4-5.0); Sodium 138 mmol/L (137-145)
[2024-07-28 14:52] LABS: Uric Acid 3.4 mg/dL (2.5-7.5)
== END 2024-07-28 13:40 | disposition home or self-care (01) ==
LOC: ANHOBOP 10:43 → ANHLDR 10:44
PROVIDERS: PCP Emergency Medicine; Visit Provider Obstetrics & Gynecology
DX: O13.9 Gestational [pregnancy-induced] hypertension without significant proteinuria, unspecified trimester (principal); Z3A.00 Weeks of gestation of pregnancy not specified
CPT/HCPCS: 36415; 76817; 80053; 81003; 82570; 84156; 84550; 85025; 99199

== ENCOUNTER 2024-08-05 17:23 | Outpatient (CLI) | payer BC, SELFPAY ==
[2024-08-05 17:32] VITALS: PULSE 84; BMI 40.3
[2024-08-05 17:45] VITALS: BP 134/81; PULSE 84
[2024-08-05 17:58] LABS: Add Urine Microscopic? NO; Appearance Urine Clear (Clear); Basophils Absolute Auto 0.1 K/mm3 (0.0-0.1); Basophils Percent Auto 0.5 % (0.2-1.2); Bilirubin Urine Negative (Negative); Blood Urine Negative (Negative); Color Urine Yellow (Yellow); Eosinophils Absolute Auto 0.2 K/mm3 (0-0.3); Eosinophils Percent Auto 1.6 % (0-4.4); Glucose Urine UA Negative (Negative); Hematocrit 35.5 % (37.0-47.0); Hemoglobin 12.4 g/dL (12.0-15.0); Immature Granulocyte Absolute 0.06 K/mm3 (0.00-0.031); Immature Granulocyte Percent A 0.5 % (0-0.5); Ketones Urine Negative (Negative); Leukocyte Esterase Ur Negative LEU/UL (Negative); Lymphocytes Absolute Auto 3.01 K/mm3 (0.9-3.2); Lymphocytes Percent Auto 23.6 % (18.3-44.2); Mean Corpuscular HGB Conc 34.9 g/dl (32-36); Mean Corpuscular Hemoglobin 31.1 pg (26-34); Mean Platelet Volume 10.5 fl (7.4-10.4); Monocytes Absolute Auto 1.2 K/mm3 (0.1-0.6); Monocytes Percent Auto 9.1 % (2.6-8.5); Neutrophils Absolute Auto 8.2 K/mm3 (1.3-6.7); Neutrophils Percent Auto 64.7 % (45.5-73.1); Nitrate Urine Negative (Negative); Platelet Count Result 241 k/mm3 (150-375); Protein Urine Negative (Negative); Red Blood Count 3.99 M/mm3 (4.2-5.4); Red Cell Distribution Width 14.2 % (11.5-14.5); Specific Grav Ur 1.005 (1.001-1.035); Urobilinogen Urine 0.2 mg/dL (<2.0); White Blood Count 12.7 K/mm3 (4.5-10.0)
[2024-08-05 18:01] VITALS: BP 131/78; PULSE 84
[2024-08-05 18:01] LABS: Creatinine Urine 21.8 mg/dL; Total Protein Urine Random 19 mg/dL; Ur Ttl Prot Creatinine Ratio 0.87 mg/mg (0-0.20)
[2024-08-05 18:03] VITALS: TEMP 36.3
--- OUTSIDE RECORDS SUMMARY | 2024-08-05 18:05 | XMS_ITS | Clinical Summary ---
Author Organization [facility] Address [address] [place] [address] Phone Care Team Providers Care Pot Maker Name Role Phone Kareem Domingo MD Primary Care Provider [phone] Allergies Active Allergy Reactions Criticality Noted Date [...] on file Legal Sex Female 12:36 AM CANE PUSHER Gender Identity Not on file Sexual Orientation Not on file Last Filed Vital Signs Vital Sign Reading Time Taken Comments Blood Pressure 154/87 08/04/2023 4:08 AM CDT Pulse 96 08/04/2023 12:44 AM CANE PUSHER Temperature 36.2 C (97.2 F) 08/04/2023 12:44 AM CANE PUSHER Respiratory Rate 18 08/04/2023 12:44 AM CANE PUSHER Oxygen Saturation 97% 08/04/2023 12:44 AM CANE PUSHER Inhaled Oxygen Concentration - - Weight 111.1 kg (245 lb) 08/04/2023 12:44 AM CANE PUSHER Height 167.6 cm (5' 6 ) 08/04/2023 12:44 AM CANE PUSHER Body Mass Index 39.54 08/04/2023 12:44 AM CANE PUSHER Plan of Treatment Health Maintenance Due Date [...] to complete this topic Insurance Care Teams Pot Maker Relationship Specialty Start Date End Date Kareem Domingo MD [address] [place] [id number] PCP - General Family Medicine 08/04/23
--- OUTSIDE RECORDS SUMMARY | 2024-08-05 18:05 | XMS_ITS | Clinical Summary ---
Author Organization [facility] Address [address] [place] [id number] Care Team Providers Care Diesel Service Journeyman Name Role Phone Kareem Domingo MD Primary Care Provider [phone] Allergies Active Allergy Reactions Criticality Noted Date Comments Naproxen Rash,Nausea and Vomiting High 04/01/2018 Raspberry Anaphylaxis High 02/20/2013 Strawberries Anaphylaxis High 02/20/2013 Ketorolac Tromethamine Vomiting High 02/15/2021 Tramadol Vomiting High 02/15/2021 Medications Blood Glucose Monitoring Suppl ([facility] BLOOD GLUCOSE MONITOR) w/Device Kit Inject 1 each into the skin daily. Check blood sugar daily and prn DX: E11.9 017 Active Lancets (STERILANCE TL) Misc Inject 1 Stick into the skin daily. Test blood sugars daily and as needed. 017 Active albuterol (ACCUNEB) 1.25 MG/3ML nebulizer solution Take 3 mLs (1.25 mg total) by nebulization 3 (three) times daily as needed for Wheezing. 720 mL 023 Active albuterol sulfate HFA 108 (90 Base) MCG/ACT inhaler Inhale 2 puffs into the lungs every 6 (six) hours as needed. 6.7 g 024 Active ondansetron (ZOFRAN-ODT) 4 MG disintegrating tablet Take 1 tablet (4 mg total) by mouth every 8 (eight) hours as needed for Nausea. 20 tablet 024 Active NIFEdipine ER (ADALAT CC) 30 MG 24 hr tablet Take 1 tablet (30 mg total) by mouth daily. Active Dnmtkccm-Fyk-Es-F A ( 1 + IRON OR) Take 1 tablet by mouth daily. Active insulin glargine (LANTUS) 100 UNIT/ML injection (VIAL) Inject 20 Units into the skin 2 (two) times daily. Active amLODIPine 5 MG tablet Take 1 tablet (5 mg total) by mouth daily. 30 tablet 2024 Discontinued metoprolol succinate ER 50 MG 24 hr tablet Take 1 tablet (50 mg total) by mouth daily. 30 tablet 2024 Discontinued VICTOZA 18 MG/3ML injection INJECT 0.6MG SUB Q ONCE DAILY 2024 Discontinued lisinopril-hydroC HLOROthiazide 20-25 MG tablet 2024 Discontinued topiramate (TOPAMAX) 25 MG tablet Take 1 tablet (25 mg total) by mouth 2 (two) times daily. 2024 Discontinued atorvastatin (LIPITOR) 40 MG tablet Take 40 mg by mouth daily. 2024 Discontinued valsartan-hydroCH LOROthiazide (DIOVAN-HCT) 160-12.5 MG tablet Take 1 tablet by mouth daily. 2024 Discontinued montelukast (SINGULAIR) 10 MG tablet Take 1 tablet (10 mg total) by mouth daily. 2024 Discontinued TRULICITY 4.5 MG/0.5ML injection (PEN) INJECT 4.5MG SUBCUTANEOUSLY ONCE A WEEK 2024 Discontinued HYDROcodone-aceta minophen (NORCO) 5-325 MG tabletIndications :Acute Pain < 7 Day Supply Take 1 tablet by mouth every 6 (six) hours as needed. Indications: Acute Pain < 7 Day Supply 8 tablet 024 2024 Discontinued valsartan (DIOVAN) 40 MG tablet Take 1 tablet (40 mg total) by mouth daily. 2024 Discontinued Active Problems Problem Noted Date Diagnosed Date Tendonitis, Achilles, right 02/05/2019 Foreign body in right foot, initial encounter Morbid obesity due to excess calories 06/02/2018 Allergic rhinitis, unspecifi ed seasonality, unspecified trigger 06/02/2018 Essential hypertension 04/01/2018 Type 2 diabetes mellitus ([facility]) 04/01 Estimated Date of Delivery Comme nts Yes 12/28/2024 Encounters Date Type Department Care Team Description 07/26/2024 8:55 PM HIDE AND SKIN PROCESSING WORKER - 07/26/2024 11:22 PM [facility] Emergency [facility] Emergency Room [address] [place] [id number] Marlon Delarosa, Abdominal Pain (Patient ambulates in with concern for elevated b/p at home. She is currently 18 weeks . Patient is . Patient reports she started having some intermittent LLQ pain that wraps around to her back since 1900. Took her b/p at home, was 168/88, called her OB, was told to go to ER. En route to ER, had sharp pain to mid chest that is gone now. Denies urinary s/s.) Discharge Disposition: Home or Self Care (Routine Discharge) 07/26/2024 Travel 06/18/2024 10:10 PM HIDE AND SKIN PROCESSING WORKER - 06/19/2024 1:03 AM [facility] Emergency [facility] Emergency Room [address] [place] [address] Cristela Davila MD Vaginal Bleeding Discharge Disposition: Home or Self Care (Routine Discharge) 06/18/2024 Travel 06/13/2024 1:24 PM HIDE AND SKIN PROCESSING WORKER - 06/13/2024 4:41 PM [facility] Emergency [facility] Emergency Room [address] [place] [id number] Akosua Olvera MD Vaginal Bleeding Discharge Disposition: Home or Self Care (Routine Discharge) 06/13/2024 Travel 06/07/2024 2:13 AM HIDE AND SKIN PROCESSING WORKER - 06/07/2024 5:14 AM [facility] Emergency [facility] Emergency Room [address] [place] [address] Michael Sharp MD Vaginal Bleeding (Low abdominal cramps and low back pain for >24 hours. ) Discharge Disposition: Home or Self Care (Routine Discharge) 06/07/2024 Travel 05/08/2024 8:49 AM HIDE AND SKIN PROCESSING WORKER - 05/08/2024 11:36 AM HIDE AND SKIN PROCESSING WORKER Emergency [facility] [place] [address] Hue Puckett, DRYWALL TAPER Vaginal Bleeding Discharge Disposition: Home or Self Care (Routine Discharge) 05/08/2024 Travel from Last 3 Months Immunizations Name [...] Answer Date Recorded PHQ-2 Score 0 04/24/2019 Estimated Date of Delivery Comme nts Yes 12/28/2024 Sex and Gender Information Value Date Recorded Sex Assigned at Female 06/13/2024 1:51 PM HIDE AND SKIN PROCESSING WORKER Legal Sex Female 9:32 PM CDT Gender Identity Not on file Sexual Orientation Not on file Last Filed Vital Signs Vital Sign Reading Time Taken Comments Blood Pressure 155/92 07/26/2024 11:00 PM HIDE AND SKIN PROCESSING WORKER Pulse 78 07/26/2024 11:00 PM HIDE AND SKIN PROCESSING WORKER Temperature 36.6 C (97.8 F) 07/26/2024 11:00 PM HIDE AND SKIN PROCESSING WORKER Respiratory Rate 18 07/26/2024 11:00 PM HIDE AND SKIN PROCESSING WORKER Oxygen Saturation 100% 07/26/2024 11:00 PM HIDE AND SKIN PROCESSING WORKER Inhaled Oxygen Concentration - - Weight 109.8 kg (242 lb) 07/26/2024 8:53 PM HIDE AND SKIN PROCESSING WORKER Height 165.1 cm (5' 5 ) 07/26/2024 8:53 PM HIDE AND SKIN PROCESSING WORKER Body Mass Index 40.27 07/26/2024 8:53 PM HIDE AND SKIN PROCESSING WORKER Plan of Treatment Health Maintenance Due Date [...] 03/24/2032 03/24/2022, 03/05/1996, 12/06/1992, Additional history exists Hepatitis C Completed 03/28/2015 HPV Vaccines Aged Out No longer eligi ble based on patient's age to complete this topic Meningococcal B Vaccine Aged Out No l onger eligible based on patient's age to complete this topic Meningococcal Vaccine Aged Out No charley raoul eligible based on patient's age to complete this topic RSV Immunization or 60+ Years (No Doses Required) Completed RSV Immunizations Under 20 Months Aged Out No longer eligible based on patient's age to complete this topic Procedures Procedure Name Priority Date/Time Associated Diagnosis Comments COMPREHENSIVE METABOLIC PANEL STAT 07/26/2024 9:45 PM HIDE AND SKIN PROCESSING WORKER CBC W/DIFF AUTOMATED STAT 07/26/2024 9:45 PM HIDE AND SKIN PROCESSING WORKER HC URINALYSIS AUTO W/O MICRO STAT 07/26/2024 9:40 PM HIDE AND SKIN PROCESSING WORKER HCG QUANT (SERUM)-CHORIONIC GONADOTROPIN STAT 06/18/2024 10:50 PM HIDE AND SKIN PROCESSING WORKER COMPREHENSIVE METABOLIC PANEL STAT 06/18/2024 10:50 PM HIDE AND SKIN PROCESSING WORKER CBC W/DIFF AUTOMATED STAT 06/18/2024 10:50 PM HIDE AND SKIN PROCESSING WORKER US OB <14WKS TA STAT 06/13/2024 2:53 PM HIDE AND SKIN PROCESSING WORKER COMPREHENSIVE METABOLIC PANEL STAT 06/13/2024 1:45 PM HIDE AND SKIN PROCESSING WORKER CBC W/DIFF AUTOMATED STAT 06/13/2024 1:45 PM HIDE AND SKIN PROCESSING WORKER US OB <14WKS TA STAT 06/07/2024 4:47 AM HIDE AND SKIN PROCESSING WORKER HCG QUANT (SERUM)-CHORIONIC GONADOTROPIN STAT 06/07/2024 3:00 AM HIDE AND SKIN PROCESSING WORKER BASIC METABOLIC PANEL STAT 06/07/2024 3:00 AM HIDE AND SKIN PROCESSING WORKER CBC W/DIFF AUTOMATED STAT 06/07/2024 3:00 AM HIDE AND SKIN PROCESSING WORKER HC URINALYSIS AUTO W/O MICRO STAT 06/07/2024 2:28 AM HIDE AND SKIN PROCESSING WORKER US OB TRANSVAG STAT 05/08/2024 10:40 AM HIDE AND SKIN PROCESSING WORKER HCG QUANT (SERUM)-CHORIONIC GONADOTROPIN STAT 05/08/2024 8:59 AM HIDE AND SKIN PROCESSING WORKER HC BLOOD TYPING ABO STAT 05/08/2024 8 :56 AM HIDE AND SKIN PROCESSING WORKER COMPREHENSIVE METABOLIC PANEL STAT 05/08/2024 8:56 AM HIDE AND SKIN PROCESSING WORKER CBC W/DIFF AUTOMATED STAT 05/08/2024 8:56 AM HIDE AND SKIN PROCESSING WORKER HC URINALYSIS AUTO W/O MICRO STAT 05/08/2024 8:55 AM HIDE AND SKIN PROCESSING WORKER LIPID PANEL Routine 04/24/2019 8:04 AM HIDE AND SKIN PROCESSING WORKER Essential hypertension Type 2 diabetes mellitus without complication, without long-term current use of insulin HEMOGLOBIN, GLYCOSYLATED Routine 04/24/2019 8:04 AM HIDE AND SKIN PROCESSING WORKER Type 2 diabetes mellitus without complication, without long-term current use of insulin HEPATITIS PANEL,ACUTE Routine 03/28/2015 9:43 AM HIDE AND SKIN PROCESSING WORKER from Last 3 Months or Most Recently Relevant to Health Maintenance Results * (ABNORMAL) COMPREHENSIVE METABOLIC PANEL (07/26/2024 9:45 PM HIDE AND SKIN PROCESSING WORKER) Only the most recent of4 resultswithin the time period is included. [facility] GLUCOSE 89 70 - 99 MG/DL 07/26/2024 10:18 PM [facility] BUN 5(L) 7 - 18 MG/DL 07/26/2024 10:18 PM [facility] CREATININE S/P/B 0.64 0.55 - 1.02 MG/DL 07/26/2024 10:18 PM [facility] SODIUM S/P/B 138 136 - 145 MMOL/L 07/26/2024 10:18 PM [facility] POTASSIUM S/P/B 3.5 3.5 - 5.1 MMOL/L 07/26/2024 10:18 PM [facility] CHLORIDE S/P/B 105 100 - 108 MMOL/L 07/26/2024 10:18 PM [facility] CO2 22.0 21 - 32 MMOL/L 07/26/2024 10:18 PM [facility] CALCIUM S/P/B 8.7 8.5 - 10.1 MG/DL 07/26/2024 10:18 PM [facility] BILIRUBIN TOTAL S/P/B 0.1(L) 0.2 - 1.2 MG/DL 07/26/2024 10:18 PM [facility] Comment: THIS ASSAY IS NOT RECOMMENDED FOR PATIENTS UNDERGOING TREATMENT WITH ELTROMBOPAG DUE TO THE POTENTIAL FOR FALSELY ELEVATED RESULTS. TOTAL PROTEIN S/P/B 6.7 6.4 - 8.2 G/DL 07/26/2024 10:18 PM [facility] ALBUMIN S/P/B 2.8(L) 3.4 - 5.0 G/DL 07/26/2024 10:18 PM [facility] AST 17 15 - 37 U/L 07/26/2024 10:18 PM [facility] ALT 26 14 - 55 U/L 07/26/2024 10:18 PM [facility] ALKALINE PHOSPHATASE S/P/B 44(L) 50 - 136 U/L 07/26/2024 10:18 PM [facility] ANION GAP 11.0 5 - 15 MMOL/L 07/26/2024 10:18 PM [facility] BUN CREATININE RATIO 7.8 6 - 26 07/26/2024 10:18 PM [facility] A/G RATIO 0.7(L) 1.0 - 2.0 RATIO 07/26/2024 10:18 PM [facility] GFR ESTIMATE >90 >90 ML/MIN/1.7 3 M2 07/26/2024 10:18 PM [facility] Comment: NOTE: eGFR is not calculated for patients <18 years of age. This is an estimated GFR calculation using the new CKD EPI creatinine equation without race and so does not require a correction factor for race. This estimated GFR should not be used for calculating drug doses. 07/26/2024 9:45 PM HIDE AND SKIN PROCESSING WORKER Marlon Delarosa DO LABORATORY Final Res ult [facility] [address] [id number], * (ABNORMAL) CBC W/DIFF AUTOMATED (07/26/2024 9:45 PM [facility]) Only the most recent of5 resultswithin the time period is included. WBC 12.21(H) 4.50 - 11.00 x10'3/uL 07/26/2024 10:03 PM [facility] RBC 3.95(L) 4.20 - 5.40 x10'6/uL 07/26/2024 10:03 PM [facility] HGB 11.9(L) 12.0 - 16.0 G/DL 07/26/2024 10:03 PM [facility] HCT 34.8(L) 38.0 - 48.0 % 07/26/2024 10:03 PM [facility] MCV 88.1 81.0 - 99.0 FL 07/26/2024 10:03 PM [facility] MCH 30.1 27.0 - 31.0 PG 07/26/2024 10:03 PM [facility] MCHC 34.2 32.0 - 36.0 G/DL 07/26/2024 10:03 PM [facility] RDW 14.2 11.5 - 14.5 % 07/26/2024 10:03 PM [facility] PLT 247 130 - 400 x10'3/uL 07/26/2024 10:03 PM [facility] MPV 10.2 9.3 - 12.2 FL 07/26/2024 10:03 PM [facility] CBC COMMENT AUTOMATED RBC MORPHOLOGY AND PLATELET EVALUATION NORMAL 07/26/2024 10:03 PM [facility] NEUTROPHILS % 58.5 % 07/26/2024 10:03 PM [facility] LYMPHOCYTES % 27.9 % 07/26/2024 10:03 PM [facility] MONOCYTES % 10.8 % 07/26/2024 10:03 PM [facility] EOSINOPHILS 1.7 % 07/26/2024 10:03 PM [facility] BASOPHILS 0.6 % 07/26/2024 10:03 PM [facility] IMMATURE GRANS % 0.5 % 07/27/19 10:03 PM [facility] NRBC % 0.0 % 07/26/2024 10:03 PM [facility] ABS. NEUTROPHILS TOTAL 7.14 1.80 - 7.70 x10'3/uL 07/26/2024 10:03 PM [facility] ABS. LYMPHOCYTES 3.41 1.00 - 4.80 x10'3/uL 07/26/2024 10:03 PM [facility] ABS. MONOCYTES 1.32(H) 0.24 - 0.86 x10'3/uL 07/26/2024 10:03 PM [facility] ABS. EOSINOPHILS 0.21 0.04 - 0.36 x10'3/uL 07/26/2024 10:03 PM [facility] ABS. BASOPHILS 0.07 0.01 - 0.08 x10'3/uL 07/26/2024 10:03 PM [facility] ABS. IMMATURE GRANULOCYTES 0.06 0.00 - 0.49 x10'3/uL 07/26/2024 10:03 PM [facility] ABS. NUCLEATED RBC'S 0.00 0.00 - 0.01 x10'3/uL 07/26/2024 10:03 PM [facility] 07/26/2024 9:4 5 PM HIDE AND SKIN PROCESSING WORKER us Marlon Jarrod Heberer DO LABORATORY Final Res ult [facility] [address] [place] [address], [place] [phone] * URINALYSIS (07/26/2024 9:40 PM HIDE AND SKIN PROCESSING WORKER) Only the most recent of3 resultswithin the time period is included. COLOR (U) LIGHT YELLOW 07/26/2024 10:14 PM [facility] TRANSPARENCY CLEAR 07/26/2024 10:14 PM [facility] SPECIFIC GRAVITY (U) 1.010 1.002 - 1.030 07/26/2024 10:14 PM [facility] U PH 7.0 4.5 - 8.0 07/26/2024 10:14 PM [facility] LEUKOCYTES (U) NEGATIVE NEGATIVE 07/26/2024 10:14 PM [facility] NITRITES NEGATIVE NEGATIVE 07/26/2024 10:14 PM [facility] PROTEIN RANDOM (U) NEGATIVE NEGATIVE 07/26/2024 10:14 PM [facility] GLUCOSE (U) NEGATIVE NEGATIVE 07/26/2024 10:14 PM [facility] KETONES MG/DL (U) NEGATIVE NEGATIVE 07/26/2024 10:14 PM [facility] UROBILINOGEN NORMAL NORMAL EU/DL 07/26/2024 10:14 PM [facility] BILIRUBIN (U) NEGATIVE NEGATIVE 07/26/2024 10:14 PM [facility] BLOOD (U) NEGATIVE NEGATIVE 07/26/2024 10:14 PM [facility] WBC/HPF MICROSCOPIC ANALYSIS NOT DONE ON URINES WITH NEGATIVE BIOCHEMICAL TESTS /HPF 07/26/2024 10:14 PM [facility] URINE SPECIMEN OBTAINED BY CLEAN CATCH PROCEDURE / Unknown 07/26/2024 9:40 PM HIDE AND SKIN PROCESSING WORKER Marlon Delarosa DO URINE ORDERABLES Final Re sult Performing Organization Address [facility] de Phone Number [facility] [address] [place] [address], * HCG QUANTITATIVE SERUM (06/18/2024 10:50 PM HIDE AND SKIN PROCESSING WORKER) Only the most recent of3 resultswithin the time period is included. HCG QUANTITATIVE 50,752 MIU/ML 06/18/19 11:55 PM HIDE AND SKIN PROCESSING WORKER [facility] Comment: WEEKS OF REFERENCE RANGES NON- FEMALE 0-6 0.2 - 1 5 - 50 1 - 2 50 - 500 2 - 3 100 - 5000 3 - 4 500 - 10,000 4 - 5 1000 - 50,000 5 - 6 10,000 - 100,000 6 - 8 15,000 - 200,000 2 - 3 MONTHS 10,000 - 100,000 06/18/2024 10:5 0 PM HIDE AND SKIN PROCESSING WORKER Cristela Davila MD LABORATORY Final Result Performing Organization Address [facility] de Phone Number [facility] [address] [place] [address], * US OB <14WKS TA (06/13/2024 2:53 PM HIDE AND SKIN PROCESSING WORKER) Only the most recent of2 resultswithin the time period is included. Anatomical Region Laterality Modality Abdomen Ultrasound 06/13/2024 2:56 PM HIDE AND SKIN PROCESSING WORKER Impressions 06/13/2024 2:59 PM HIDE AND SKIN PROCESSING WORKER IMPRESSION: 1. Single live intrauterine with an estimated gestational age of 11 weeks 6 days based on crown-rump length. 2. Small-volume subchorionic hemorrhage. 3. Normal sonographic appearance of the left ovary. Nonvisualization of the right ovary. Referred By: Interpreted By: Roberto Mendiola MD, 06/13/2024 2:56 PM Narrative 06/13/2024 2:59 PM HIDE AND SKIN PROCESSING WORKER [facility] [address] [place] [address] Examination: US OB TRANSVAG Indication: bleeding at [...] * There is a single intrauterine . [place] rump length of 5.06 cm corresponds with [...] Procedure Note Roberto Mendiola MD - 06/15/2024 [facility] [address] [place] [address] Examination: US OB TRANSVAG Indication: bleeding at [...] * There is a single intrauterine . [place] rump length of 5.06 cmcorresponds with an [...] (ABNORMAL) BASIC METABOLIC PANEL (06/07/2024 3:00 AM HIDE AND SKIN PROCESSING WORKER) GLUCOSE 165(H) 70 - 99 MG/DL 06/07/2024 3:52 AM HIDE AND SKIN PROCESSING WORKER [facility] BUN 9 7 - 18 MG/DL 06/07/2024 3:52 AM [facility] CREATININE S/P/B 0.44(L) 0.55 - 1.02 MG/DL 06/07/2024 3:52 AM [facility] SODIUM S/P/B 129(L) 136 - 145 MMOL/L 06/07/2024 3:52 AM [facility] POTASSIUM S/P/B 3.7 3.5 - 5.1 MMOL/L 06/07/2024 4:11 AM [facility] CHLORIDE S/P/B 102 100 - 108 MMOL/L 06/07/2024 3:52 AM [facility] CO2 21.5 21 - 32 MMOL/L 06/07/2024 3:52 AM [facility] CALCIUM S/P/B 8.7 8.5 - 10.1 MG/DL 06/07/2024 3:52 AM [facility] ANION GAP 5.5 5 - 15 MMOL/L 06/07/2024 3:52 AM [facility] BUN CREATININE RATIO 20.5 6 - 26 06/07/2024 3:52 AM [facility] GFR ESTIMATE >90 >90 ML/MIN/1.7 3 M2 06/07/2024 3:52 AM [facility] Comment: NOTE: eGFR is not calculated for patients <18 years of age or gender unknown. This is an estimated GFR calculation using the new CKD EPI creatinine equation without race and so does not require a correction factor for race. This estimated GFR should not be used for calculating drug doses. 06/07/2024 3:00 AM HIDE AND SKIN PROCESSING WORKER us Michael Sharp MD LABORATORY Final Resul t [facility] [address] [place] [address], [place] [phone] * US OB TRANSVAG (05/08/2024 10:40 AM HIDE AND SKIN PROCESSING WORKER) Anatomical Region Laterality Modality Abdomen, Pelvis Ultrasound 05/08/2024 10:4 4 AM HIDE AND SKIN PROCESSING WORKER Impressions 05/08/2024 10:53 AM HIDE AND SKIN PROCESSING WORKER IMPRESSION:===== 1. Single viable intrauterine gestation with [...] 05/08/2024 10:44 AM Narrative 05/08/2024 10:53 AM HIDE AND SKIN PROCESSING WORKER [address] [address] EXAMINATION: OB ultrasound with transvaginal imaging EXAM [...] Procedure Note Jarrod Case MD - 05/08/2024 [facility] [address] [place], [place] [address] EXAMINATION: OB ultrasound with transvaginal imaging EXAM [...] By: Jarrod Case MD, 05/08/2024 10:44 AM us Hue Puckett [facility] ULTRASOUND Final Resul t * BLOOD TYPING, ABO AND RH (05/08/2024 8:56 AM HIDE AND SKIN PROCESSING WORKER) Pathologist [facility] ABO/RH A POSITIVE 05/08/2024 10:34 AM HIDE AND SKIN PROCESSING WORKER [facility] 05/08/2024 8:56 AM HIDE AND SKIN PROCESSING WORKER Hue Puckett [facility] BLOOD BANK TEST ORDERABLES Final Result Performing Organization Address [facility] Co de Phone Number [facility] [address] [place] [address], [place] [phone] * HEMOGLOBIN, GLYCOSYLATED (04/24/2019 8:04 AM HIDE AND SKIN PROCESSING WORKER) Pathologist [facility] HGB A1C 6.2 4.2 - 6.3 % [facility] Comment: Note: Hemoglobinopathies such as HbF, HbS, etc. may give incorrect results with this test. ESTIMATED AVG GLUCOSE 120 mg/dL [facility] Comment: (This value is a calculated estimate of the mean blood glucose over the last 60 days based on the patient's HgbA1c value. 04/24/2019 8:04 AM HIDE AND SKIN PROCESSING WORKER 04/24/2019 8:04 AM HIDE AND SKIN PROCESSING WORKER Shital Mancini [facility] LABORATORY Final Resul t Performing Organization Address City/[facility]/ZIP Co de Phone Number [address] [address] * (ABNORMAL) LIPID PANEL (04/24/2019 8:04 AM HIDE AND SKIN PROCESSING WORKER) Pathologist [facility] CHOLESTEROL 226(H) 0 - 200 mg/dL [facility] TRIGLYCERIDES 224(H) 0 - 150 mg/dL [facility] HDL 32 0 - 40 mg/dL [facility] LDL (CALCULATED) 149(H) 10 - 130 mg/dL [facility] CARDIO RISK 7 [facility] Comment: CHOLESTEROL LEVELS AND CHD [...] INVALID IF TRIGLYCERIDES >450 04/24/2019 8:04 AM HIDE AND SKIN PROCESSING WORKER 04/24/2019 8:04 AM HIDE AND SKIN PROCESSING WORKER Shital [facility] LABORAT[facility] Final Resul t [address] [address] * HEPATITIS PANEL,ACUTE (03/28/2015 9:43 AM HIDE AND SKIN PROCESSING WORKER) HAV IGM NON-REACTIV E NON-REAC TIVE [facility] [...] CONVERSION Comment: THIS TEST WAS PERFORMED AT [facility] [address] [place] [address] 03/28/2015 9:43 AM HIDE AND SKIN PROCESSING WORKER 03/28/2015 9:43 AM HIDE AND SKIN PROCESSING WORKER Narrative [facility] TO EPIC CONVERSION - 03/30/2015 11:23 AM HIDE AND SKIN PROCESSING WORKER This lab was migrated from [facility] ER and may be missing annotations or result text, please check the Media tab for the most complete results. 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
--- OUTSIDE RECORDS SUMMARY | 2024-08-05 18:05 | XMS_ITS | Patient Health Summary ---
Author Organization [facility] Address [address] [place] [address] Care Team Providers Care Car Inspector Name Role Phone Unknown, Provider Primary Care Provider Unavaila ble Note from [facility],non-owned Affiliates and Associated Physician Practices is amultiple site organization consisting of ambulatory clinics and hospital sitesin [place], [place], [place] and [place]. This disclosure is being madepursuant to the Care Everywhere program and may not contain all information available regarding this patient. Last updated 18.[facility] Allergies * Blackberry Flavor(Unknown) * Naproxen(Rash) -Medium [...] and dinner. 5 refills by 06/16/2025 * Alcohol Swabs(Started 06/19/2024) Use as needed for insulin administration 5 refills by 06/19/2025 * Glucagon (Baqsimi One Pack) 3 MG/DOSE POWD(Started 06/19/2024) [place] 1 Each into the nose as needed * insulin glargine (Lantus/Semglee) 100 units/mL pen(Started 08/04/2024) Inject 28 units in the morning and 28 units at bedtime. Take dosages approximately 12 hours apart. Increase dose as directed due to increasing insulin requirements during . Max total daily dose = 100u 5 refills by 08/04/2025 * insulin pen needle (Novofine) 32G X 6 MM MISC(Started 08/04/2024) 1 (one) Each by Injection route 3 times daily 5 refills by 08/04/2025 * insulin aspart (NovoLOG) pen(Started 08/04/2024) Inject 4 units about 10 minutes before dinner meals containing carbohydrates. Increase dose as directed due to increasing insulin requirements during . Max total daily dose = 50u 5 refills by 08/04/2025 Ended Medications* insulin pen needle (Novofine) 32G X 6 MM MISC(Started 06/19/2024)(Discontinued) 1 (one) Each by Injection route 2 times daily 5 refills by 06/19/2025 * insulin glargine (Lantus/Semglee) 100 units/mL pen(Started 06/30/2024) (Discontinued) Inject 18 units in the morning and 18 units at bedtime. Take dosages approximately 12 hours apart. Increase dose as directed due to increasing insulin requirements during . Max total daily dose = 50u 5 refills by 06/30/2025 Active Problems Problem Noted Date Diagnosed Date History of umbilical hernia 07/21/2024 Encounter for ultrasound 07/21/2024 Primigravida, antepartum 07/21/2024 Type 2 diabetes mellitus without complication Chronic hypertension affecting 025 Obesity in 07/21/2024 BMI 40.0-44.9, adult 07/21/2024 History of PCOS 07/21/2024 Social History Tobacco Use Types Packs/Day Years [...] Sign Reading Time Taken Comments Blood Pressure 130/78 07/21/2024 2:50 PM ERP PM Pulse 94 07/21/2024 2:40 PM ERP PM Temperature - - Respiratory Rate 18 06/16/2024 10:40 AM ERP PM Oxygen Saturation - - Inhaled Oxygen Concentration - - Weight 110 kg (242 lb 6.4 oz) 07/21/2024 2:40 PM ERP PM Height 165.1 cm (5' 5 ) 06/30/2024 9:14 AM ERP PM Body Mass Index 40.34 06/30/2024 9:14 AM ERP PM Procedures * SONOGRAM - COMPLETE(Performed 07/21/2024) Performed for History of umbilical hernia, Encounter for ultrasound ([facility]), Primigravida, antepartum (HCC), Type 2 diabetes mellitus without complication, unspecified whether custodial insulin use (HCC), Chronic hypertension affecting (HCC), Obesity in (HCC), BMI 40.0-44.9,adult (HCC), History of PCOS, 16 weeks gestation of (HCC) * SONOGRAM - COMPLETE(Performed 06/30/2024) Performed for Encounter for ultrasound ([facility]), Primigravida, antepartum (HCC), Type 2 diabetesmellitus without complication, unspecified whether custodial insulin use (HCC), Chronic hypertension affecting (HCC), Obesity in (HCC), BMI 40.0-44.9, adult (HCC), History of PCOS, History of umbilical hernia, 13 weeks gestation of (HCC) Results * SONOGRAM - COMPLETE (07/21/2024 3:28 PM ERP PM) Only the most recent of2 resultswithin the time period is included. Linked Results Indication ======== Diabetes mellitus, type II Chronic hypertension, requiring meds Obesity, Class III PCOS Vaginal bleeding, Subchorionic hemorrhage seen on 06/30/2024 History ====== OB History 1. Para 0 Lab Tests Test Date Result NIPT Low risk Maternal Assessment Physical Exam Height 165 cm, 5 ft 5 in. Weight 110 kg, 242 lb. Initial weight 112 kg, 246 lb. BMI 40.27 kg/m . Initial BMI 40.94 kg/m . Weight gain -2 kg, -4 lb Method ====== Transabdominal ultrasound. View: limited secondary to challenging acoustic properties. Suboptimal view: limited by position ========= Olson . Number of fetuses: 1 Dating ====== Date Details Gest. age JOHANA Stated JOHANA 16 w + 5 d 12/31/2024 Previous U/S 05/13/2024 GA, GA 6 w + 6 d 16 w + 5 d 12/31/2024 U/S 07/21/2024 based upon AC, BPD, Femur, HC 17 w + 4 d 12/25/2024 Assigned dating based on ultrasound (GA), selected on 06/30/2024 16 w + 5 d 12/31/2024 General Evaluation Cardiac activity present. FHR 146 bpm. movements: visualized. Presentation: cephalic Placenta: Placental site: posterior, no previa. Placental zalc-iz-bryuxiin os distance 49 mm Umbilical cord: Cord vessels: 3 vessel cord. Insertion site: suboptimal Amniotic fluid: Amount of AF: normal Biometry BPD 38.0 mm 17w 4d 85% Hadlock HC 140.0 mm 17w 2d 72% Hadlock AC 127.0 mm 18w 2d 92% Hadlock Femur 23.0 mm 16w 6d 53% Hadlock HC / AC 1.10 -/- 4% Hadlock Weight Calculation: EFW 202 g 91% Hadlock EFW (lb,oz) 0 lb 7 oz EFW by Hadlock ([id number]) appropriate Growth Overview Exam date GA BPD (mm) HC (mm) AC (mm) FL (mm) HL (mm) EFW (g) 06/30/2024 13w 5d 26.2 78% 97.4 69% 80.4 80% 14 62% 14.3 68% 95 74% 07/21/2024 16w 5d 38 85% 140 72% 127 92% 23 53% 202 91% Anatomy Face Profile: nasal bone present. The following structures appear normal: Head / Neck Cranium. Choroid plexus. Heart / Thorax Diaphragm. Abdomen Cord insertion. Stomach. Kidneys. Bladder. Genitals. Extremities / Skeleton Arms. Legs. The following structures could not be adequately visualized: Head / Neck Lateral ventricles. Midline falx. Cerebellum. Heart / Thorax 4-chamber view. Spine Cervical spine. Thoracic spine. Lumbar spine. Sacral spine. Extremities / Skeleton Hands. Feet. sex: male. Maternal Structures Cervix Normal Approach - Transvaginal: Cervical length 3.30 cm Funneling absent Right Ovary Normal Left Ovary Normal Impression ========= Here today for early anatomical survey and reevaluation of previously noted subchorionic hematoma. She has had no further vaginal bleeding since her previous ultrasound. She had opted for NIPT and was reported as low risk Single live intrauterine at 16w 5d The JOHANA is 12/31/2024 size is consistent with her established dates. The amniotic fluid volume: normal Normal appearing posterior placenta. No evidence of any subchorionic hematoma. Transvaginal cervical length is normal measuring 3.3 cm long and closed. No funneling. No major malformations were seen within the limitations of ultrasound. But certain structures remains suboptimally visualized due to position and maternal acoustic properties. Comment ======== Normal appearing posterior placenta It is common for a previously noted subchorionic hematoma 2 spontaneous resolve with advancing gestation and should have no adverse effect on outcome. The anatomical survey showed no gross abnormalities however certain structures remains suboptimally visualized due to position and maternal acoustic properties which limited the overall study. Both ultrasound and screening/testing have their limitations in detecting all congenital anomalies and chromosomal abnormalities/inh erited disorders or genetic syndromes. Follow-up ======== To return in 4 weeks for growth, detailed anatomic survey. Also recommend echo at >/=24 weeks. Coding ====== Procedures 58135: US Preg Uterus >14 weeks 84973: [facility] P[facility] Anatomical Region Laterality Modality Other 07/21/2024 3:28 PM ERP PM Kody Mark MD [facility] ORDERABLES Care Teams Car Inspector Relationship Specialty Start Date End Date Unknown, Provider PCP - General 06/16/24
--- OUTSIDE RECORDS SUMMARY | 2024-08-05 18:05 | XMS_ITS | Referral Summary ---
Author Organization [facility] Address [address] [place] [address] Care Team Providers Care Carbonizer Tester Name Role Phone Unknown, Provider Primary Care Provider Unavaila ble Source Comments [facility],non-owned Affiliates and Associated Physician Practices is amultiple site organization consisting of ambulatory clinics and hospital sitesin [place], [place], [place] and [place]. This disclosure is being madepursuant to the Care Everywhere program and may not contain all information available regarding this patient. Last updated 18.[facility] Encounters Date Type Department Care Team Description 07/21/2024 2:17 PM PHYSICS AND ASTRONOMY PROFESSOR - 07/21/2024 11:59 PM PHYSICS AND ASTRONOMY PROFESSOR Hospital Encounter [facility] [address] [place] [address] Stu Gonzalez MD Discharge Disposition: Home or Self Care 06/30/2024 8:05 AM PHYSICS AND ASTRONOMY PROFESSOR - 06/30/2024 11:59 PM PHYSICS AND ASTRONOMY PROFESSOR Hospital Encounter [facility] [address] [place] [address] Liu Taveras MD Gross, Gilad A, MD Discharge Disposition: Home or Self Care 06/30/2024 8:04 AM PHYSICS AND ASTRONOMY PROFESSOR Hospital Encounter [facility] [address] [place] [address] Liu Taveras MD Gross, Gilad A, MD Discharge Disposition: Home or Self Care 06/30/2024 8:04 AM PHYSICS AND ASTRONOMY PROFESSOR Hospital Encounter [facility] [address] [place] [address] Liu Taveras MD Gross, Gilad A, MD Discharge Disposition: Home or Self Care 06/16/2024 10:20 AM PHYSICS AND ASTRONOMY PROFESSOR - 06/16/2024 11:59 PM PHYSICS AND ASTRONOMY PROFESSOR Hospital Encounter [facility] [address] [place] [address] Stu Gonzalez MD Discharge Disposition: Home or [...] for breakfast, lunch, and dinner. 150 strip 06/16/2024 Active Lancets (ONETOUCH DELICA PLUS 33G EXTRA FINE LANCET)Indicati ons:Pre-existin g type 2 diabetes mellitus during in first trimester (HCC) Use lancet to check Blood glucose four times daily. Check fasting glucose, and then one hour after each meal for breakfast, lunch, and dinner. 150 Each 06/16/2024 Active Alcohol Swabs Use as needed for insulin administration 100 Each 06/19/2024 Active Glucagon (Baqsimi One Pack) 3 MG/DOSE POWD [place] 1 Each into the nose as needed 1 Each 06/19/2024 Active insulin glargine (Lantus/Semglee ) 100 units/mL pen Inject 28 units in the morning and 28 units at bedtime. Take dosages approximately 12 hours apart. Increase dose as directed due to increasing insulin requirements during . Max total daily dose = 100u 30 mL 08/04/2024 Active insulin pen needle (Novofine) 32G X 6 MM MISCIndications :Pre-existing type 2 diabetes mellitus during in first trimester ([facility]) 1 (one) Each by Injection route 3 times daily 100 Each 08/04/2024 Active insulin aspart (NovoLOG) pen Inject 4 units about 10 minutes before dinner meals containing carbohydrates. Increase dose as directed due to increasing insulin requirements during . Max total daily dose = 50u 15 mL 5 08/04/2024 Active insulin pen needle (Novofine) 32G X 6 MM MISCIndications :Pre-existing type 2 diabetes mellitus during in first trimester ([facility]) 1 (one) Each by Injection route 2 times daily 100 Each 06/19/2024 08/05/19 Discontinued insulin glargine (Lantus/Semglee ) 100 units/mL pen Inject 18 units in the morning and 18 units at bedtime. Take dosages approximately 12 hours apart. Increase dose as directed due to increasing insulin requirements during . Max total daily dose = 50u 15 mL 06/30/2024 08/05/19 Discontinued Active Problems Problem Noted Date Diagnosed Date History of umbilical hernia 07/21/2024 Encounter for ultrasound 07/21/2024 Primigravida, antepartum 07/21/2024 Type 2 diabetes mellitus without complication Chronic hypertension affecting 025 Obesity in 07/21/2024 BMI 40.0-44.9, adult 07/21/2024 History of PCOS 07/21/2024 Estimated Date of Delivery Comme nts Yes 12/31/2024 Based on Ultraso und Social History Tobacco Use Types Packs/Day Years [...] Comments Blood Pressure 130/78 07/21/2024 2:50 PM PHYSICS AND ASTRONOMY PROFESSOR Pulse 94 07/21/2024 2:40 PM PHYSICS AND ASTRONOMY PROFESSOR Temperature - - Respiratory Rate 18 06/16/2024 10:40 AM PHYSICS AND ASTRONOMY PROFESSOR Oxygen Saturation - - Inhaled Oxygen Concentration - - Weight 110 kg (242 lb 6.4 oz) 07/21/2024 2:40 PM PHYSICS AND ASTRONOMY PROFESSOR Height 165.1 cm (5' 5 ) 06/30/2024 9:14 AM PHYSICS AND ASTRONOMY PROFESSOR Body Mass Index 40.34 06/30/2024 9:14 AM PHYSICS AND ASTRONOMY PROFESSOR Plan of Treatment Upcoming Encounters Date Type Department Care Team (Late st Contact Info) Description 08/11/2024 1:00 PM CDT Hospital Encounter [facility] [address] [place] [address] Procedures Procedure Name Priority Date/Time Associated Diagnosis Comments SONOGRAM - COMPLETE Routine 07/21/2024 3:28 PM PHYSICS AND ASTRONOMY PROFESSOR History of umbilical hernia Encounter for ultrasound (HCC) Primigravida, antepartum (HCC) Type 2 diabetes mellitus without complication, unspecified whether shelter insulin use (HCC) Chronic hypertension affecting (HCC) Obesity in (HCC) BMI 40.0-44.9, adult (HCC) History of PCOS 16 weeks gestation of (HCC) SONOGRAM - COMPLETE Routine 06/30/2024 8:17 AM PHYSICS AND ASTRONOMY PROFESSOR Encounter for ultrasound (HCC) Primigravida, antepartum (HCC) Type 2 diabetes mellitus without complication, unspecified whether shelter insulin use (HCC) Chronic hypertension affecting (HCC) Obesity in (HCC) BMI 40.0-44.9, adult (HCC) History of PCOS History of umbilical hernia 13 weeks gestation of (HCC) from Last 3 Months Results * SONOGRAM - COMPLETE (07/21/2024 3:28 PM PHYSICS AND ASTRONOMY PROFESSOR) Only the most recent of2 resultswithin the [...] Placenta: Placental site: posterior, no previa. Placental thbz-jn-daouhqqd os distance 49 mm Umbilical cord: Cord [...] 0 lb 7 oz EFW by Hadlock ([id number]) appropriate Growth Overview Exam date GA BPD [...] echo at >/=24 weeks. Coding ====== Procedures 96324: US Preg Uterus >14 weeks 21596: US Preg Uterus Transvaginal [facility] PACS Anatomical Region Laterality Modality Other 07/21/2024 3:28 PM PHYSICS AND ASTRONOMY PROFESSOR Kody Mark MD [facility] ORDERABLES from Last 3 Months Care Teams Carbonizer Tester Relationship Specialty Start Date End Date Unknown, Provider PCP - General 06/16/24
--- OUTSIDE RECORDS SUMMARY | 2024-08-05 18:05 | XMS_ITS | Encounter Summary ---
Author Organization [facility] Address [address] [place] [id number] Care Team Providers Care Ergonomist Name Role Phone Shital Mancini Primary Care Provider Unav Kareem Austin MD Primary Care Provider [phone] Kareem Domingo MD Primary Care Provider [phone] Shital Mancini Unavailable Unavailabl Kareem Liu MD Unavailable [phone] Sihtal Mancini Unavailable Unavailabl Kareem Liu MD Primary Care Provider [phone] Encounter Details Date Type Department Care Team (Late st Contact Info) Description 11/23/2019 MyChart Message Enc [address] [place] [id number] Shital Mancini FNP RE: Other Social History [...] Sex Assigned at Female 06/13/2024 1:51 PM COFFEE ATTENDANT Legal Sex Female 9:32 PM CDT Gender Identity Not on file Sexual Orientation Not on file documented as of this encounter Plan of Treatment Not on file documented as of this encounter Visit Diagnoses Not on filedocumented in this encounter Additional Health Concerns Infection Onset Date Last Indicated Resolved Time COVID-19 Rule Out 05/09/2022 05/09/2022 05/09/2022 2:58 PM COFFEE ATTENDANT COVID-19 Rule Out 10/06/2023 10/06/2023 10/06/2023 2:17 PM CDT documented as of this encounter Care Teams Ergonomist Relationship Specialty Start Date End Date Shital Mancini FNP PCP - General FAMILY PRACTICE 03/12/18 02/14/21 Kareem Domingo MD [address] [place] [id number] PCP - General FAMILY PRACTICE 02/15/21 03/19/21 Kareem Domingo MD [address] [place] [id number] PCP - General FAMILY PRACTICE 03/20/21 04/19/24 Kareem Domingo MD [address] [place] [id number] PCP - General FAMILY PRACTICE 04/20/24 Shital Mancini FNP FAMILY PRACTICE 02/15/21 03/19/21 Kareem Domingo MD [address] [place] [address] FAMILY PRACTICE 03/20/21 04/19/24 Shital Mancini FNP 03/12/18 03/19/21 documented as of this encounter
--- OUTSIDE RECORDS SUMMARY | 2024-08-05 18:05 | XMS_ITS | Clinical Summary ---
Author Organization [facility] Address [address] [place] [address] Care Team Providers Care Continuous Mining Machine Operator Name Role Phone Unknown, Provider Primary Care Provider Unavaila ble Source Comments [facility],non-owned Affiliates and Associated Physician Practices is amultiple site organization consisting of ambulatory clinics and hospital sitesin [place], [place], [place] and [place]. This disclosure is being madepursuant to the Care Everywhere program and may not contain all information available regarding this patient. Last updated 18.[facility] Allergies Active Allergy Reactions Criticality Noted Date [...] Glucagon (Baqsimi One Pack) 3 MG/DOSE POWD [place] 1 Each into the nose as needed [...] (HCC) 1 (one) Each by Injection route 3 times daily 100 Each 08/04/2024 Active insulin aspart (NovoLOG) pen Inject 4 units about 10 minutes before dinner meals containing carbohydrates. Increase dose as directed due to increasing insulin requirements during . Max total daily dose = 50u 15 mL 08/04/2024 Active insulin pen needle (Novofine) 32G X 6 MM MISCIndications :Pre-existing type 2 diabetes mellitus during in first trimester (HCC) 1 (one) Each by Injection route 2 times daily 100 Each 06/19/2024 08/05/19 25 Discontinued insulin glargine (Lantus/Semglee ) 100 units/mL pen Inject 18 units in the morning and 18 units at bedtime. Take dosages approximately 12 hours apart. Increase dose as directed due to increasing insulin requirements during . Max total daily dose = 50u 15 mL 06/30/2024 08/05/19 25 Discontinued Active Problems Problem Noted Date Diagnosed Date History of umbilical hernia 07/21/2024 Encounter for ultrasound 07/21/2024 Primigravida, antepartum 07/21/2024 Type 2 diabetes mellitus without complication Chronic hypertension affecting 025 Obesity in 07/21/2024 BMI 40.0-44.9, adult 07/21/2024 History of PCOS 07/21/2024 Estimated Date of Delivery Comme nts Yes 12/31/2024 Based on Ultraso und Encounters Date Type Department Care Team Description 07/21/2024 2:17 PM SCREEN TENDER HELPER - 07/21/2024 11:59 PM SCREEN TENDER HELPER Hospital Encounter [facility] [address] [place] [address] Stu Gonzalez MD Discharge Disposition: Home or Self Care 06/30/2024 8:05 AM SCREEN TENDER HELPER - 06/30/2024 11:59 PM SCREEN TENDER HELPER Hospital Encounter [facility] [address] [place] [address] Liu Taveras MD Gross, Gilad A, MD Discharge Disposition: Home or Self Care 06/30/2024 8:04 AM SCREEN TENDER HELPER Hospital Encounter [facility] [address] [place] [address] Liu Taveras MD Gross, Gilad A, MD Discharge Disposition: Home or Self Care 06/30/2024 8:04 AM SCREEN TENDER HELPER Hospital Encounter [facility] [address] [place] [address] Liu Taveras MD Gross, Gilad A, MD Discharge Disposition: Home or Self Care 06/16/2024 10:20 AM SCREEN TENDER HELPER - 06/16/2024 11:59 PM SCREEN TENDER HELPER Hospital Encounter [facility] [address] [place] [address] Stu Gonzalez MD Discharge Disposition: Home or Self Care from Last 3 Months Family History Medical History Relation Name Comments Leukemia Father Cancer - Breast Maternal Grandfather Diabetes - Type 2 Mother Hypertension Mother Other - Cardiac Mother Relation Name Status Comments Father Maternal Grandfather Mother Social History Tobacco Use Types Packs/Day Years Used Date Smoking Tobacco: Former Cigarettes Q uit: 2004 Smokeless Tobacco: Never Alcohol Use Standard Drinks/Week [...] Comments Blood Pressure 130/78 07/21/2024 2:50 PM SCREEN TENDER HELPER Pulse 94 07/21/2024 2:40 PM SCREEN TENDER HELPER Temperature - - Respiratory Rate 18 06/16/2024 10:40 AM SCREEN TENDER HELPER Oxygen Saturation - - Inhaled Oxygen Concentration - - Weight 110 kg (242 lb 6.4 oz) 07/21/2024 2:40 PM SCREEN TENDER HELPER Height 165.1 cm (5' 5 ) 06/30/2024 9:14 AM SCREEN TENDER HELPER Body Mass Index 40.34 06/30/2024 9:14 AM SCREEN TENDER HELPER Plan of Treatment Upcoming Encounters Date Type Department Care Team (Late st Contact Info) Description 08/11/2024 1:00 PM CDT Hospital Encounter [facility] [address] [place] [address] Health Maintenance Due Date Last Done Comments PAP SMEAR 1990 HIV SCREENING 2005 HEPATITIS C SCREENING 11/29/2008 DTAP/TDAP/TD VACCINES (1 - Tdap) 2009 HEPATITIS B VACCINE (1 of 3 - 19+ 3-dose series) 2009 PNEUMOCOCCAL VACCINE (1 of 2 - PCV) 2009 COVID-19 VACCINE (3 - season) 2024 06/16/2020, 05/18/2020 INFLUENZA VACCINE (#1) 2024 DEPRESSION SCREENING 05/27/2024 DIABETES - URINE PROTEIN SCREENING 05/27/2024 DIABETES RETINOPATHY SCREENING 07/21/2024 DIABETES-FOOT EXAM WITH MONOFILAMENT 07/21/2024 DIABETES-HGB A1C 07/21/2024 04/24/2019 DIABETES-SERUM CREATININE 06/18/20252024, 06/18/2024, 06/13/2024, Additional history exists ZOSTER VACCINE (1 of 2) 2040 HIB VACCINE Aged Out No longer eligi ble based on patient's age to complete this topic HPV VACCINE Aged Out No longer eligi ble based on patient's age to complete this topic MENINGOCOCCAL (Group B) VACCINE SHARED DECISION-MAKING Aged Out No longer eligible based on patient's age to complete this topic MENINGOCOCCAL GROUPS A/C/Y/W VACCINE Aged Out No longer eligible based on patient's age to complete this topic Respiratory Syncytial Virus (RSV) Vaccine Pt: or over 60 yrs (No Doses Required) Completed Procedures Procedure Name Priority Date/Time Associated Diagnosis Comments SONOGRAM - COMPLETE Routine 07/21/2024 3:28 PM SCREEN TENDER HELPER History of umbilical hernia Encounter for ultrasound (HCC) Primigravida, antepartum (HCC) Type 2 diabetes mellitus without complication, 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 whether 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 marine terminal 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 (HCC) Chronic hypertension affecting (HCC) Obesity in (HCC) BMI 40.0-44.9, adult (HCC) History of PCOS 16 weeks gestation of (HCC) SONOGRAM - COMPLETE Routine 06/30/2024 8:17 AM SCREEN TENDER HELPER Encounter for ultrasound (HCC) Primigravida, antepartum (HCC) Type 2 diabetes mellitus without complication, unspecified whether half-way insulin use (HCC) Chronic hypertension affecting (HCC) Obesity in (HCC) BMI 40.0-44.9, adult (HCC) History of PCOS History of umbilical hernia 13 weeks gestation of (HCC) from Last 3 Months Results * SONOGRAM - COMPLETE (07/21/2024 3:28 PM SCREEN TENDER HELPER) Only the most recent of2 resultswithin the [...] Placenta: Placental site: posterior, no previa. Placental eyqu-uv-yvknjpfb os distance 49 mm Umbilical cord: Cord [...] 0 lb 7 oz EFW by Hadlock ([id number]) appropriate Growth Overview Exam date GA BPD [...] echo at >/=24 weeks. Coding ====== Procedures 07063: US Preg Uterus >14 weeks 69098: US Preg Uterus Transvaginal [facility] PACS Anatomical Region Laterality Modality Other 07/21/2024 3:28 PM SCREEN TENDER HELPER Kody Mark MD [facility] ORDERABLES from Last 3 Months Care Teams Continuous Mining Machine Operator Relationship Specialty Start Date End Date Unknown, Provider PCP - General 06/16/24
[2024-08-05 18:06] LABS: Alanine Aminotransferase 24 U/L (6-35); Alkaline Phosphatase 59 U/L (38-126); Anion Gap 12 mmol/L (4-12); Aspartate Amino Transferase 20 U/L (14-36); Bilirubin,Total 0.2 mg/dL (0.2-1.3); Blood Urea Nitrogen 8 mg/dL (7-17); Calcium 9.7 mg/dL (8.4-10.2); Carbon Dioxide 19 mmol/L (22-30); Chloride 105 mmol/L (98-107); Estimated CRCL calculation 147 ml/min; Estimated Glomerular Filt Rate > 60; Glucose 111 mg/dL (65-110); Potassium 3.7 mmol/L (3.4-5.0); Sodium 136 mmol/L (137-145); Uric Acid 3.5 mg/dL (2.5-7.5)
[2024-08-05 18:16] VITALS: BP 118/95; PULSE 86
[2024-08-05 18:31] VITALS: BP 139/85; PULSE 83
--- NOTE | 2024-08-05 18:49 | PC.NURSE ---
Called Dr. Mark, update on pt, elevated blood pressure at home, headache, spots in vision, blood pressure, labs, and dopple heart tones. Orders received to discharge pt with instructions to see provider in the office Saturday with at home blood pressure cuff, repeat PIH labs at L and D Saturday, keep next scheduled appointment, and when to return to the unit.
--- NOTE | 2024-08-05 18:58 | PC.NURSE ---
Pt discharged with instructions to see provider in the office Saturday with at home blood pressure cuff, repeat PIH labs at L and D Saturday, keep next scheduled appointment, and when to return to the unit, pt verbalizes understanding.
--- NOTE | 2024-08-06 07:23 | PM.OBTRLD ---
OB - Triage/Final Diagnosis Visit Information Date of evaluation: 08/05/24 Reason for evaluation: other (elevated BP) Comments/Additional reasons for admission: I have assessed the risk for this patient, Mary Brambila, and determined that she would benefit from observation care. Evaluation Laboratory results: Laboratory Tests 08/05/24 17:34 WBC 12.7 H RBC 3.99 L Hgb 12.4 Hct 35.5 L MCV 89.0 MCH 31.1 MCHC 34.9 RDW 14.2 Plt Count 241 MPV 10.5 H Immature Gran % (Auto) 0.5 Neut % (Auto) 64.7 Lymph % (Auto) 23.6 [place] % (Auto) 9.1 H Eos % (Auto) 1.6 Baso % (Auto) 0.5 Lymph # (Auto) 3.01 [place] # (Auto) 1.2 H Eos # (Auto) 0.2 Baso # (Auto) 0.1 Abs Immat Gran (auto) 0.06 H Absolute Neuts (auto) 8.2 H Absolute Nucleated RBC 0.000 Nucleated RBC % 0.0 Sodium 136 L Potassium 3.7 Chloride 105 Carbon Dioxide 19 L Anion Gap 12 BUN 8 Creatinine 0.57 L Estim Creat Clear Calc 147 Estimated GFR > 60 Glucose 111 H Uric Acid 3.5 Calcium 9.7 Total Bilirubin 0.2 AST 20 ALT 24 Alkaline Phosphatase 59 Total Protein 7.0 Albumin 4.0 Urine Color Yellow Urine Appearance Clear Urine pH 6.0 Ur Specific [place] 1.005 Urine Protein Negative Urine Glucose (UA) Negative Urine Ketones Negative Ur Blood (Man) Negative Urine Nitrate Negative Urine Bilirubin Negative Urine Urobilinogen 0.2 Leukocyte Esterase Rfl Negative U Random Total Protein 19 Urine Creatinine 21.8 Protein/Creat Ratio 2 0.87 H Vital signs: Vital Signs - 24 hr 08/05/24 17:32 08/05/24 17:45 08/05/24 18:01 Temperature Pulse Rate 84 84 84 Blood Pressure 134/81 131/78 08/05/24 18:03 08/05/24 18:16 08/05/24 18:31 Temperature 97.4 F L Pulse Rate 86 83 Blood Pressure 118/95 H 139/85
== END 2024-08-05 18:58 | disposition home or self-care (01) ==
LOC: ANHOBOP 17:26 → ANHOBPP 17:27
PROVIDERS: Student in an Organized Health Care Education/Training Program; PCP Emergency Medicine; Visit Provider Obstetrics & Gynecology
DX: O13.9 Gestational [pregnancy-induced] hypertension without significant proteinuria, unspecified trimester (principal); Z3A.00 Weeks of gestation of pregnancy not specified
CPT/HCPCS: 36415; 80053; 81003; 82570; 84156; 84550; 85025

== ENCOUNTER 2024-08-10 15:48 | Outpatient (CLI) | payer BC, SELFPAY ==
--- NOTE | 2024-08-10 16:00 | PC.NURSE ---
Doppler of FHT's 160's
[2024-08-10 16:37] VITALS: BP 126/64; PULSE 81
[2024-08-10 16:46] VITALS: BP 126/74; PULSE 83
[2024-08-10 16:46] LABS: Basophils Absolute Auto 0.1 K/mm3 (0.0-0.1); Basophils Percent Auto 0.5 % (0.2-1.2); Eosinophils Absolute Auto 0.3 K/mm3 (0-0.3); Eosinophils Percent Auto 2.1 % (0-4.4); Hemoglobin 11.6 g/dL (12.0-15.0); Immature Granulocyte Absolute 0.07 K/mm3 (0.00-0.031); Immature Granulocyte Percent A 0.6 % (0-0.5); Lymphocytes Absolute Auto 2.45 K/mm3 (0.9-3.2); Lymphocytes Percent Auto 19.4 % (18.3-44.2); Mean Corpuscular HGB Conc 34.1 g/dl (32-36); Mean Corpuscular Volume 90.9 fl (80-100); Mean Platelet Volume 10.7 fl (7.4-10.4); Monocytes Absolute Auto 1.3 K/mm3 (0.1-0.6); Monocytes Percent Auto 10.2 % (2.6-8.5); Neutrophils Absolute Auto 8.5 K/mm3 (1.3-6.7); Neutrophils Percent Auto 67.2 % (45.5-73.1); Platelet Count Result 209 k/mm3 (150-375); Red Blood Count 3.74 M/mm3 (4.2-5.4); Red Cell Distribution Width 14.2 % (11.5-14.5); White Blood Count 12.7 K/mm3 (4.5-10.0)
[2024-08-10 16:48] LABS: Add Urine Microscopic? NO; Appearance Urine Clear (Clear); Bilirubin Urine Negative (Negative); Blood Urine Negative (Negative); Color Urine Yellow (Yellow); Glucose Urine UA Negative (Negative); Ketones Urine Negative (Negative); Leukocyte Esterase Ur Negative LEU/UL (Negative); Nitrate Urine Negative (Negative); Protein Urine Negative (Negative); Specific Grav Ur 1.005 (1.001-1.035); Urobilinogen Urine 0.2 mg/dL (<2.0)
[2024-08-10 17:01] VITALS: BP 124/70; PULSE 79
[2024-08-10 17:06] LABS: Alanine Aminotransferase 20 U/L (6-35); Albumin Level 3.5 g/dL (3.5-5.1); Alkaline Phosphatase 52 U/L (38-126); Anion Gap 10 mmol/L (4-12); Aspartate Amino Transferase 20 U/L (14-36); Bilirubin,Total 0.2 mg/dL (0.2-1.3); Blood Urea Nitrogen 6 mg/dL (7-17); Calcium 8.8 mg/dL (8.4-10.2); Carbon Dioxide 20 mmol/L (22-30); Chloride 107 mmol/L (98-107); Estimated Glomerular Filt Rate > 60; Glucose 124 mg/dL (65-110); Potassium 3.4 mmol/L (3.4-5.0); Sodium 137 mmol/L (137-145); Uric Acid 3.8 mg/dL (2.5-7.5)
[2024-08-10 17:07] LABS: Creatinine Urine 29.6 mg/dL; Total Protein Urine Random 17 mg/dL; Ur Ttl Prot Creatinine Ratio 0.57 mg/mg (0-0.20)
[2024-08-10 17:16] VITALS: BP 128/71; PULSE 78
--- OUTSIDE RECORDS SUMMARY | 2024-08-10 18:33 | XMS_ITS | Patient Health Summary ---
Author Organization [facility] [employer] Address [address] [place] [address] Care Team Providers Care Global Account Manager Name Role Phone Unknown, Provider Primary Care Provider Unavaila ble Note from [facility],non-owned Affiliates and Associated Physician Practices is amultiple site organization consisting of ambulatory clinics and hospital sitesin [place], [place], [place] and [place]. This disclosure is being madepursuant to the Care Everywhere program and may not contain all information available regarding this patient. Last updated 18.[facility] [employer] Allergies * Blackberry Flavor(Unknown) * Naproxen(Rash) -Medium [...] (Baqsimi One Pack) 3 MG/DOSE POWD(Started 06/19/2024) [place] 1 Each into the nose as needed [...] Comments Blood Pressure 130/78 07/21/2024 2:50 PM PARTICIPANT ADMINISTRATOR Pulse 94 07/21/2024 2:40 PM PARTICIPANT ADMINISTRATOR Temperature - - Respiratory Rate 18 06/16/2024 10:40 AM PARTICIPANT ADMINISTRATOR Oxygen Saturation - - Inhaled Oxygen Concentration - - Weight 110 kg (242 lb 6.4 oz) 07/21/2024 2:40 PM PARTICIPANT ADMINISTRATOR Height 165.1 cm (5' 5 ) 06/30/2024 9:14 AM PARTICIPANT ADMINISTRATOR Body Mass Index 40.34 06/30/2024 9:14 AM PARTICIPANT ADMINISTRATOR Procedures * SONOGRAM - COMPLETE(Performed 07/21/2024) Performed for History of umbilical hernia, Encounter for ultrasound ([facility]), Primigravida, antepartum (HCC), Type 2 diabetes mellitus without complication, unspecified whether fdc insulin use (HCC), Chronic hypertension affecting (HCC), Obesity in (HCC), BMI 40.0-44.9,adult (HCC), History of PCOS, 16 weeks gestation of (HCC) * SONOGRAM - COMPLETE(Performed 06/30/2024) Performed for Encounter for ultrasound ([facility]), Primigravida, antepartum (HCC), Type 2 diabetesmellitus without complication, unspecified whether fdc insulin use (HCC), Chronic hypertension affecting (HCC), Obesity in (HCC), BMI 40.0-44.9, adult (HCC), History of PCOS, History of umbilical hernia, 13 weeks gestation of (HCC) Results * SONOGRAM - COMPLETE (07/21/2024 3:28 PM PARTICIPANT ADMINISTRATOR) Only the most recent of2 resultswithin the [...] Placenta: Placental site: posterior, no previa. Placental [id number] os distance 49 mm Umbilical cord: Cord [...] 0 lb 7 oz EFW by Hadlock ([id number]) appropriate Growth Overview Exam date [place] BPD [...] echo at >/=24 weeks. Coding ====== Procedures 87043: US Preg Uterus >14 weeks 91437: US Preg [facility]terus [facility] . [facility] Anatomical [facility] Laterality Modality Other 07/21/2024 3:28 PM PARTICIPANT ADMINISTRATOR Kody Mark MD [facility] ORDERABLES Care Teams Global Account Manager Relationship Specialty Start Date End Date Unknown, Provider PCP - General 06/16/24
--- OUTSIDE RECORDS SUMMARY | 2024-08-10 18:33 | XMS_ITS | Referral Summary ---
Author Organization [facility] Address [address] [place] [address] Care Team Providers Care Information Services Manager Name Role Phone Unknown, Provider Primary Care Provider Unavaila ble Source Comments [facility],non-owned Affiliates and Associated Physician Practices is amultiple site organization consisting of ambulatory clinics and hospital sitesin [place], [place], [place] and [place]. This disclosure is being madepursuant to the Care Everywhere program and may not contain all information available regarding this patient. Last updated 18.[facility] Encounters Date Type Department Care Team Description 07/21/2024 2:17 PM CAKE BATTER MIXER - 07/21/2024 11:59 PM CAKE BATTER MIXER Hospital Encounter [facility] [address] [place] [address] Stu Gonzalez MD Discharge Disposition: Home or Self Care 06/30/2024 8:05 AM CAKE BATTER MIXER - 06/30/2024 11:59 PM CAKE BATTER MIXER Hospital Encounter [facility] [address] [place] [address] Liu Taveras MD Gross, Gilad A, MD Discharge Disposition: Home or Self Care 06/30/2024 8:04 AM CAKE BATTER MIXER Hospital Encounter [facility] [address] [place] [address] Liu Taveras MD Gross, Gilad A, MD Discharge Disposition: Home or Self Care 06/30/2024 8:04 AM CAKE BATTER MIXER Hospital Encounter [facility] [address] [place] [address] Liu Taveras MD Gross, Gilad A, MD Discharge Disposition: Home or Self Care 06/16/2024 10:20 AM CAKE BATTER MIXER - 06/16/2024 11:59 PM CAKE BATTER MIXER Hospital Encounter [facility] Care [address] [place] [address] Stu Gonzalez MD Discharge Disposition: Home or [...] Glucagon (Baqsimi One Pack) 3 MG/DOSE POWD [place] 1 Each into the nose as needed [...] 2 diabetes mellitus during in first trimester ([facility]) 1 (one) Each by Injection route 3 [...] 2 diabetes mellitus during in first trimester ([facility]) 1 (one) Each by Injection route 2 [...] Comments Blood Pressure 130/78 07/21/2024 2:50 PM CAKE BATTER MIXER Pulse 94 07/21/2024 2:40 PM CAKE BATTER MIXER Temperature - - Respiratory Rate 18 06/16/2024 10:40 AM CAKE BATTER MIXER Oxygen Saturation - - Inhaled Oxygen Concentration - - Weight 110 kg (242 lb 6.4 oz) 07/21/2024 2:40 PM CAKE BATTER MIXER Height 165.1 cm (5' 5 ) 06/30/2024 9:14 AM CAKE BATTER MIXER Body Mass Index 40.34 06/30/2024 9:14 AM CAKE BATTER MIXER Plan of Treatment Upcoming Encounters Date Type Department Care Team (Late st Contact Info) Description 08/11/2024 1:00 PM CDT Hospital Encounter [facility] [address] [place] [address] Liu Taveras MD [address] [address] Procedures Procedure Name Priority Date/Time Associated Diagnosis Comments SONOGRAM - COMPLETE Routine 07/21/2024 3:28 PM CAKE BATTER MIXER History of umbilical hernia Encounter for ultrasound (HCC) Primigravida, antepartum (HCC) Type 2 diabetes mellitus without complication, unspecified whether fdc insulin use (HCC) Chronic hypertension affecting (HCC) Obesity in (HCC) BMI 40.0-44.9, adult (HCC) History of PCOS 16 weeks gestation of (HCC) SONOGRAM - COMPLETE Routine 06/30/2024 8:17 AM CAKE BATTER MIXER Encounter for ultrasound (HCC) Primigravida, antepartum (HCC) Type 2 diabetes mellitus without complication, 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 Placental [id number]-[id number] os distance 49 mm Umbilical cord: Cord [...] 0 lb 7 oz EFW by Hadlock ([id number]) appropriate Growth Overview Exam date [place] BPD [...] echo at >/=24 weeks. Coding ====== Procedures 48177: US Preg Uterus >14 weeks 78226: [facility] Anatomical Region Laterality Modality Other 07/21/2024 3:28 PM CAKE BATTER MIXER Kody Mark MD [facility] ORDERABLES from Last 3 Months Care Teams Information Services Manager Relationship Specialty Start Date End Date Unknown, Provider PCP - General 06/16/24
--- OUTSIDE RECORDS SUMMARY | 2024-08-10 18:33 | XMS_ITS | Encounter Summary ---
Author Organization [facility] Address [address] [place] [id number] Care Team Providers Care Qa Developer Name Role Phone Shital Mancini Primary Care Provider Unav Kareem Austin MD Primary Care Provider [phone] Kareem Domingo MD Primary Care Provider [phone] Shital Mancini Unavailable Unavailabl Kareem Liu MD Unavailable [phone] Shital Mancini Unavailable Unavailabl Kareem Liu MD Primary Care Provider [phone] Encounter Details Date Type Department Care Team (Late st Contact Info) Description 11/23/2019 MyChart Message Enc [address] [place] [id number] Shital Mancini FNP RE: Other Social History [...] Sex Assigned at Female 06/13/2024 1:51 PM HEALTH OCCUPATIONS TEACHER Legal Sex Female 9:32 PM CDT Gender Identity Not on file Sexual Orientation Not on file documented as of this encounter Plan of Treatment Not on file documented as of this encounter Visit Diagnoses Not on filedocumented in this encounter Additional Health Concerns Infection Onset Date Last Indicated Resolved Time COVID-19 Rule Out 05/09/2022 05/09/2022 05/09/2022 2:58 PM HEALTH OCCUPATIONS TEACHER COVID-19 Rule Out 10/06/2023 10/06/2023 10/06/2023 2:17 PM CDT documented as of this encounter Care Teams Qa Developer Relationship Specialty Start Date End Date Shital Mancini FNP PCP - General FAMILY PRACTICE 03/12/18 02/14/21 Kareem Domingo MD [address] [place] [id number] PCP - General FAMILY PRACTICE 02/15/21 03/19/21 Kareem Domingo MD [address] [place] [id number] PCP - General FAMILY PRACTICE 03/20/21 04/19/24 Kareem Domingo MD [address] [place] [id number] PCP - General FAMILY PRACTICE 04/20/24 Shital Mancini FNP FAMILY PRACTICE 02/15/21 03/19/21 Kareem Domingo MD [address] [place] [id number] FAMILY PRACTICE 03/20/21 04/19/24 Shital Mancini FNP 03/12/18 03/19/21 documented as of this encounter
--- OUTSIDE RECORDS SUMMARY | 2024-08-10 18:33 | XMS_ITS | Clinical Summary ---
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 Active [id number] ( 1 + IRON OR) Take [...] Essential hypertension 04/01/2018 Type 2 diabetes mellitus ([facility]) 04/01 Estimated Date of Delivery Comme nts Yes 12/28/2024 Encounters Date Type Department Care Team Description 07/26/2024 8:55 PM VENEER MARKER - 07/26/2024 11:22 PM [facility] Emergency [facility] Emergency Room [address] [place] [id number] Marlon Delarosa, Abdominal Pain (Patient ambulates in [...] (Routine Discharge) 07/26/2024 Travel 06/18/2024 10:10 PM VENEER MARKER - 06/19/2024 1:03 AM [facility] Emergency [facility] Emergency Room [address] [place] [phone] Cristela Davila MD Vaginal Bleeding Discharge Disposition: Home or Self Care (Routine Discharge) 06/18/2024 Travel 06/13/2024 1:24 PM VENEER MARKER - 06/13/2024 4:41 PM [facility] Emergency [facility] Emergency Room [address] [place] [address] Akosua Olvera MD Vaginal Bleeding Discharge Disposition: Home or Self Care (Routine Discharge) 06/13/2024 Travel 06/07/2024 2:13 AM VENEER MARKER - 06/07/2024 5:14 AM [facility] Emergency [facility] Emergency Room [address] [place] [phone] Michael Sharp MD Vaginal Bleeding (Low abdominal cramps and low back pain for >24 hours. ) Discharge Disposition: Home or Self Care (Routine Discharge) 06/07/2024 Travel from Last 3 Months Immunizations Name Administration Dates Next Due [place] COVID-19 (12+) MRNA, LNP-S, PF, 100 MCG/ [...] Sex Assigned at Female 06/13/2024 1:51 PM VENEER MARKER Legal Sex Female 9:32 PM CDT Gender Identity Not on file Sexual Orientation Not on file Last Filed Vital Signs Vital Sign Reading Time Taken Comments Blood Pressure 155/92 07/26/2024 11:00 PM VENEER MARKER Pulse 78 07/26/2024 11:00 PM VENEER MARKER Temperature 36.6 C (97.8 F) 07/26/2024 11:00 PM VENEER MARKER Respiratory Rate 18 07/26/2024 11:00 PM VENEER MARKER Oxygen Saturation 100% 07/26/2024 11:00 PM VENEER MARKER Inhaled Oxygen Concentration - - Weight 109.8 kg (242 lb) 07/26/2024 8:53 PM VENEER MARKER Height 165.1 cm (5' 5 ) 07/26/2024 8:53 PM VENEER MARKER Body Mass Index 40.27 07/26/2024 8:53 PM VENEER MARKER Plan of Treatment Health Maintenance Due Date [...] COMPREHENSIVE METABOLIC PANEL STAT 07/26/2024 9:45 PM VENEER MARKER CBC W/DIFF AUTOMATED STAT 07/26/2024 9:45 PM VENEER MARKER HC URINALYSIS AUTO W/O MICRO STAT 07/26/2024 9:40 PM VENEER MARKER HCG QUANT (SERUM)-CHORIONIC GONADOTROPIN STAT 06/18/2024 10:50 PM VENEER MARKER COMPREHENSIVE METABOLIC PANEL STAT 06/18/2024 10:50 PM VENEER MARKER CBC W/DIFF AUTOMATED STAT 06/18/2024 10:50 PM VENEER MARKER US OB <14WKS TA STAT 06/13/2024 2:53 PM VENEER MARKER COMPREHENSIVE METABOLIC PANEL STAT 06/13/2024 1:45 PM VENEER MARKER CBC W/DIFF AUTOMATED STAT 06/13/2024 1:45 PM VENEER MARKER US OB <14WKS TA STAT 06/07/2024 4:47 AM VENEER MARKER HCG QUANT (SERUM)-CHORIONIC GONADOTROPIN STAT 06/07/2024 3:00 AM VENEER MARKER BASIC METABOLIC PANEL STAT 06/07/2024 3:00 AM VENEER MARKER CBC W/DIFF AUTOMATED STAT 06/07/2024 3:00 AM VENEER MARKER HC URINALYSIS AUTO W/O MICRO STAT 06/07/2024 2:28 AM VENEER MARKER LIPID PANEL Routine 04/24/2019 8:04 AM VENEER MARKER Essential hypertension Type 2 diabetes mellitus without complication, without long-term current use of insulin HEMOGLOBIN, GLYCOSYLATED Routine 04/24/2019 8:04 AM VENEER MARKER Type 2 diabetes mellitus without complication, without long-term current use of insulin HEPATITIS PANEL,ACUTE Routine 03/28/2015 9:43 AM VENEER MARKER from Last 3 Months or Most Recently Relevant to Health Maintenance Results * (ABNORMAL) COMPREHENSIVE METABOLIC PANEL (07/26/2024 9:45 PM VENEER MARKER) Only the most recent of3 resultswithin the time period is included. GLUCOSE 89 70 - 99 MG/DL 07/26/2024 10:18 PM VENEER MARKER [facility] BUN 5(L) 7 - 18 MG/DL 07/26/2024 10:18 PM VENEER MARKER [facility] CREATININE S/P/B 0.64 0.55 - 1.02 MG/DL 07/26/2024 10:18 PM VENEER MARKER [facility] SODIUM S/P/B 138 136 - 145 MMOL/L 07/26/2024 10:18 PM [facility] POTASSIUM S/P/B 3.5 3.5 - 5.1 MMOL/L 07/26/2024 10:18 PM [facility] CHLORIDE S/P/B 105 100 - 108 MMOL/L 07/26/2024 10:18 PM [facility] CO2 22.0 21 - 32 MMOL/L 07/26/2024 10:18 PM [facility] CALCIUM S/P/B 8.7 8.5 - 10.1 MG/DL 07/26/2024 10:18 PM [facility] BILIRUBIN TOTAL S/P/B 0.1(L) 0.2 - 1.2 MG/DL 07/26/2024 10:18 PM [facility] Comment: THIS ASSAY IS NOT RECOMMENDED FOR PATIENTS UNDERGOING TREATMENT WITH ELTROMBOPAG DUE TO THE POTENTIAL FOR FALSELY ELEVATED RESULTS. TOTAL PROTEIN S/P/B 6.7 6.4 - 8.2 G/DL 07/26/2024 10:18 PM [facility] ALBUMIN S/P/B 2.8(L) 3.4 - 5.0 G/DL 07/26/2024 10:18 PM [facility] AST 17 15 - 37 U/L 07/26/2024 10:18 PM [facility] ALT 26 14 - 55 U/L 07/26/2024 10:18 PM [facility] ALKALINE PHOSPHATASE S/P/B 44(L) 50 - 136 U/L 07/26/2024 10:18 PM [facility] ANION GAP 11.0 5 - 15 MMOL/L 07/26/2024 10:18 PM [facility] BUN CREATININE RATIO 7.8 6 - 26 07/26/2024 10:18 PM [facility] A/G RATIO 0.7(L) 1.0 - 2.0 RATIO 07/26/2024 10:18 PM [facility] GFR ESTIMATE >90 >90 ML/MIN/1.7 3 M2 07/26/2024 10:18 PM [facility] Comment: NOTE: eGFR is not calculated for patients <18 years of age. This is an estimated GFR calculation using the new CKD EPI creatinine equation without race and so does not require a correction factor for race. This estimated GFR should not be used for calculating drug doses. 07/26/2024 9:45 PM VENEER MARKER us Marlon Delarosa DO LABORATORY Final Res ult [facility] [address] [place] [id number], [place] [phone] * (ABNORMAL) CBC W/DIFF AUTOMATED (07/26/2024 9:45 PM VENEER MARKER) Only the most recent of4 resultswithin the time period is included. WBC 12.21(H) 4.50 - 11.00 x10'3/uL 07/26/2024 10:03 PM [facility] RBC 3.95(L) 4.20 - 5.40 x10'6/uL 07/26/2024 10:03 PM [facility] HGB 11.9(L) 12.0 - 16.0 G/DL 07/26/2024 10:03 PM [facility] HCT 34.8(L) 38.0 - 48.0 % 07/26/2024 10:03 PM [facility] MCV 88.1 81.0 - 99.0 FL 07/26/2024 10:03 PM [facility] MCH 30.1 27.0 - 31.0 PG 07/26/2024 10:03 PM [facility] MCHC 34.2 32.0 - 36.0 G/DL 07/26/2024 10:03 PM [facility] RDW 14.2 11.5 - 14.5 % 07/26/2024 10:03 PM [facility] PLT 247 130 - 400 x10'3/uL 07/26/2024 10:03 PM [facility] MPV 10.2 9.3 - 12.2 FL 07/26/2024 10:03 PM [facility] CBC COMMENT AUTOMATED RBC MORPHOLOGY AND PLATELET EVALUATION NORMAL 07/26/2024 10:03 PM [facility] NEUTROPHILS % 58.5 % 07/26/2024 10:03 PM [facility] LYMPHOCYTES % 27.9 % 07/26/2024 10:03 PM [facility] MONOCYTES % 10.8 % 07/26/2024 10:03 PM [facility] EOSINOPHILS 1.7 % 07/26/2024 10:03 PM [facility] BASOPHILS 0.6 % 07/26/2024 10:03 PM [facility] IMMATURE GRANS % 0.5 % 07/27/19 25 10:03 PM [facility] NRBC % 0.0 % 07/26/2024 10:03 PM [facility] ABS. NEUTROPHILS TOTAL 7.14 1.80 - 7.70 x10'3/uL 07/26/2024 10:03 PM [facility] ABS. LYMPHOCYTES 3.41 1.00 - 4.80 x10'3/uL 07/26/2024 10:03 PM [facility] ABS. MONOCYTES 1.32(H) 0.24 - 0.86 x10'3/uL 07/26/2024 10:03 PM [facility] ABS. EOSINOPHILS 0.21 0.04 - 0.36 x10'3/uL 07/26/2024 10:03 PM [facility] ABS. BASOPHILS 0.07 0.01 - 0.08 x10'3/uL 07/26/2024 10:03 PM [facility] ABS. IMMATURE GRANULOCYTES 0.06 0.00 - 0.49 x10'3/uL 07/26/2024 10:03 PM [facility] ABS. NUCLEATED RBC'S 0.00 0.00 - 0.01 x10'3/uL 07/26/2024 10:03 PM [facility] 07/26/2024 9:45 PM VENEER MARKER Marlon Delarosa DO LABORATORY Final Res ult [facility] [address] [id number], [place] [phone] * URINALYSIS (07/26/2024 9:40 PM VENEER MARKER) Only the most recent of2 resultswithin the time period is included. COLOR (U) LIGHT YELLOW 07/26/2024 10:14 PM [facility] TRANSPARENCY CLEAR 07/26/2024 10:14 PM [facility] SPECIFIC GRAVITY (U) 1.010 1.002 - 1.030 07/26/2024 10:14 PM [facility] U PH 7.0 4.5 - 8.0 07/26/2024 10:14 PM [facility] LEUKOCYTES (U) NEGATIVE NEGATIVE 07/26/2024 10:14 PM [facility] NITRITES NEGATIVE NEGATIVE 07/26/2024 10:14 PM VENEER MARKER [facility] PROTEIN RANDOM (U) NEGATIVE NEGATIVE 07/26/2024 10:14 PM VENEER MARKER [facility] GLUCOSE (U) NEGATIVE NEGATIVE 07/26/2024 10:14 PM [facility] KETONES MG/DL (U) NEGATIVE NEGATIVE 07/26/2024 10:14 PM VENEER MARKER [facility] UROBILINOGEN NORMAL NORMAL EU/DL 07/26/2024 10:14 PM [facility] BILIRUBIN (U) NEGATIVE NEGATIVE 07/26/2024 10:14 PM [facility] BLOOD (U) NEGATIVE NEGATIVE 07/26/2024 10:14 PM [facility] WBC/HPF MICROSCOPIC ANALYSIS NOT DONE ON URINES WITH NEGATIVE BIOCHEMICAL TESTS /HPF 07/26/2024 10:14 PM [facility] URINE SPECIMEN OBTAINED BY CLEAN CATCH PROCEDURE / Unknown 07/26/2024 9:40 PM VENEER MARKER us Marlon Delarosa DO URINE ORDERABLES Final Re sult [facility] [address] [place] [address], * HCG QUANTITATIVE SERUM (06/18/2024 10:50 PM VENEER MARKER) Only the most recent of2 resultswithin the time period is included. HCG QUANTITATIVE 50,752 MIU/ML 06/18/19 11:55 PM VENEER MARKER [facility] Comment: WEEKS OF REFERENCE [...] 10,000 - 100,000 06/18/2024 10:5 0 PM VENEER MARKER Cristela Davila MD LABORATORY Final Result [facility] [address] [place] [address], * US OB <14WKS TA (06/13/2024 2:53 PM VENEER MARKER) Only the most recent of2 resultswithin the time period is included. Anatomical Region Laterality Modality Abdomen Ultrasound 06/13/2024 2:56 PM VENEER MARKER Impressions 06/13/2024 2:59 PM VENEER MARKER IMPRESSION: 1. Single live intrauterine with an estimated gestational age of 11 weeks 6 days based on crown-rump length. 2. Small-volume subchorionic hemorrhage. 3. Normal sonographic appearance of the left ovary. Nonvisualization of the right ovary. Referred By: Interpreted By: Roberto Mendiola MD, 06/13/2024 2:56 PM Narrative 06/13/2024 2:59 PM VENEER MARKER [address] [address] Examination: US OB TRANSVAG Indication: bleeding at [...] * There is a single intrauterine . [place] rump length of 5.06 cm corresponds with [...] Procedure Note Roberto Mendiola MD - 06/15/2024 [facility] [address] [place] [address] Examination: US OB TRANSVAG Indication: bleeding at [...] * There is a single intrauterine . [place] rump length of 5.06 cmcorresponds with an [...] (ABNORMAL) BASIC METABOLIC PANEL (06/07/2024 3:00 AM VENEER MARKER) GLUCOSE 165(H) 70 - 99 MG/DL 06/07/2024 3:52 AM [facility] BUN 9 7 - 18 MG/DL 06/07/2024 3:52 AM [facility] CREATININE S/P/B 0.44(L) 0.55 - 1.02 MG/DL 06/07/2024 3:52 AM [facility] SODIUM S/P/B 129(L) 136 - 145 MMOL/L 06/07/2024 3:52 AM [facility] POTASSIUM S/P/B 3.7 3.5 - 5.1 MMOL/L 06/07/2024 4:11 AM [facility] CHLORIDE S/P/B 102 100 - 108 MMOL/L 06/07/2024 3:52 AM [facility] CO2 21.5 21 - 32 MMOL/L 06/07/2024 3:52 AM [facility] CALCIUM S/P/B 8.7 8.5 - 10.1 MG/DL 06/07/2024 3:52 AM [facility] ANION GAP 5.5 5 - 15 MMOL/L 06/07/2024 3:52 AM VENEER MARKER [facility] BUN CREATININE RATIO 20.5 6 - 26 06/07/2024 3:52 AM [facility] GFR ESTIMATE >90 >90 ML/MIN/1.7 3 M2 06/07/2024 3:52 AM [facility] Comment: NOTE: eGFR is not calculated for patients <18 years of age or gender unknown. This is an estimated GFR calculation using the new CKD EPI creatinine equation without race and so does not require a correction factor for race. This estimated GFR should not be used for calculating drug doses. 06/07/2024 3:00 AM VENEER MARKER Michael Sharp MD LABORATORY Final Resul t Performing Organization Address [facility] Co de Phone Number [facility] [address] [place] [address], [place] [phone] * HEMOGLOBIN, GLYCOSYLATED (04/24/2019 8:04 AM VENEER MARKER) HGB A1C 6.2 4.2 - 6.3 % [facility] Comment: Note: Hemoglobinopathies such as HbF, HbS, etc. may give incorrect results with this test. ESTIMATED AVG GLUCOSE 120 mg/dL [facility] Comment: (This value is a calculated estimate of the mean blood glucose over the last 60 days based on the patient's HgbA1c value. 04/24/2019 8:04 AM VENEER MARKER 04/24/2019 8:04 AM VENEER MARKER [facility] Final Resul t Performing Organization Address [facility]/ZIP Co de Phone Number [facility] [address] [place] [address] * (ABNORMAL) LIPID PANEL (04/24/2019 8:04 AM VENEER MARKER) CHOLESTEROL 226(H) 0 - 200 mg/dL [facility] TRIGLYCERIDES 224(H) 0 - 150 mg/dL [facility] HDL 32 0 - 40 mg/dL [facility] LDL (CALCULATED) 149(H) 10 - 130 mg/dL [facility] CARDIO RISK 7 [facility] Comment: CHOLESTEROL LEVELS AND CHD [...] INVALID IF TRIGLYCERIDES >450 04/24/2019 8:04 AM VENEER MARKER 04/24/2019 8:04 AM VENEER MARKER [facility] Final Resul t [address] [address] * HEPATITIS PANEL,ACUTE (03/28/2015 9:43 AM VENEER MARKER) HAV IGM NON-REACTIV E NON-REAC TIVE [facility] [...] CONVERSION Comment: THIS TEST WAS PERFORMED AT [facility] [address] [place] [address] 03/28/2015 9:43 AM VENEER MARKER 03/28/2015 9:43 AM VENEER MARKER Narrative [facility] TO EPIC CONVERSION - 03/30/2015 11:23 AM VENEER MARKER This lab was migrated from [facility] and may be missing annotations or result text, please check the Media tab for the most complete results. [facility] Final Resul t [facility] TO EPIC CONVERSION from Last 3 Months or Most Recently Relevant to Health Maintenance Insurance [employer] Advance Directives Documents on File Type Date Recorded Patient Making Machine Catcher Expl anation Advance Directives and Living Will 09/12/2016 12:00 AM ADVANCED DIRECTIVES Care Teams Pillowcase Sewer Relationship Specialty Start Date End Date Kareem Domingo MD [address] [place] [address] [place] [address] PCP - General FAMILY PRACTICE 04/20/24
--- OUTSIDE RECORDS SUMMARY | 2024-08-10 18:33 | XMS_ITS | Clinical Summary ---
Author Organization [facility] Address [address] [place] [address] Care Team Providers Care Chronometer Assembler And Adjuster Name Role Phone Unknown, Provider Primary Care Provider Unavaila ble Source Comments [facility],non-owned Affiliates and Associated Physician Practices is amultiple site organization consisting of ambulatory clinics and hospital sitesin [place], [place], [place] and [place]. This disclosure is being madepursuant to the Care Everywhere program and may not contain all information available regarding this patient. Last updated 18.[facility] Allergies Active Allergy Reactions Criticality Noted Date [...] Glucagon (Baqsimi One Pack) 3 MG/DOSE POWD [place] 1 Each into the nose as needed [...] Department Care Team Description 07/21/2024 2:17 PM MARKETING SALES REPRESENTATIVE - 07/21/2024 11:59 PM MARKETING SALES REPRESENTATIVE Hospital Encounter [facility] [address] [place] [id number] Stu Gonzalez MD Discharge Disposition: Home or Self Care 06/30/2024 8:05 AM MARKETING SALES REPRESENTATIVE - 06/30/2024 11:59 PM MARKETING SALES REPRESENTATIVE Hospital Encounter [facility] [address] [place] [phone] Liu Taveras MD Gross, Gilad A, MD Discharge Disposition: Home or Self Care 06/30/2024 8:04 AM MARKETING SALES REPRESENTATIVE Hospital Encounter [facility] [address] [place] [phone] Liu Taveras MD Gross, Gilad A, MD Discharge Disposition: Home or Self Care 06/30/2024 8:04 AM MARKETING SALES REPRESENTATIVE Hospital Encounter [facility] [address] [place] [address] Liu Taveras MD Gross, Gilad A, MD Discharge Disposition: Home or Self Care 06/16/2024 10:20 AM MARKETING SALES REPRESENTATIVE - 06/16/2024 11:59 PM MARKETING SALES REPRESENTATIVE Hospital Encounter [facility] [address] [place] [phone] Stu Gonzalez MD Discharge Disposition: Home or [...] Comments Blood Pressure 130/78 07/21/2024 2:50 PM MARKETING SALES REPRESENTATIVE Pulse 94 07/21/2024 2:40 PM MARKETING SALES REPRESENTATIVE Temperature - - Respiratory Rate 18 06/16/2024 10:40 AM MARKETING SALES REPRESENTATIVE Oxygen Saturation - - Inhaled Oxygen Concentration - - Weight 110 kg (242 lb 6.4 oz) 07/21/2024 2:40 PM MARKETING SALES REPRESENTATIVE Height 165.1 cm (5' 5 ) 06/30/2024 9:14 AM MARKETING SALES REPRESENTATIVE Body Mass Index 40.34 06/30/2024 9:14 AM MARKETING SALES REPRESENTATIVE Plan of Treatment Upcoming Encounters Date Type Department Care Team (Late st Contact Info) Description 08/11/2024 1:00 PM CDT Hospital Encounter [facility] [address] [place] [address] Liu Taveras MD [address] [address] Health Maintenance Due Date Last Done Comments PAP SMEAR 1990 HIV SCREENING 2005 DTAP/TDAP/TD VACCINES (1 - Tdap) 2009 HEPATITIS B VACCINE (1 of 3 - 19+ 3-dose series) 2009 PNEUMOCOCCAL VACCINE (1 of 2 - PCV) 2009 COVID-19 VACCINE (3 - 2023- season) 2024 06/16/2020, 05/18/2020 INFLUENZA VACCINE (#1) 2024 DEPRESSION SCREENING 05/27/2024 DIABETES - URINE PROTEIN SCREENING 05/27/2024 DIABETES RETINOPATHY SCREENING 07/21/2024 DIABETES-FOOT EXAM WITH MONOFILAMENT 07/21/2024 DIABETES-HGB A1C 07/21/2024 04/24/2019 DIABETES-SERUM CREATININE 06/18/20252024, 06/18/2024, 06/13/2024, Additional history exists ZOSTER VACCINE (1 of 2) 2040 HEPATITIS C SCREENING Completed 03/28/2015 HIB VACCINE Aged Out No longer eligi [...] SONOGRAM - COMPLETE Routine 07/21/2024 3:28 PM MARKETING SALES REPRESENTATIVE History of umbilical hernia Encounter for ultrasound (HCC) Primigravida, antepartum (HCC) Type 2 diabetes mellitus without complication, unspecified whether intermediate project manager insulin use (HCC) Chronic hypertension affecting (HCC) Obesity in (HCC) BMI 40.0-44.9, adult (HCC) History of PCOS 16 weeks gestation of (HCC) SONOGRAM - COMPLETE Routine 06/30/2024 8:17 AM MARKETING SALES REPRESENTATIVE Encounter for ultrasound (HCC) Primigravida, antepartum (HCC) Type 2 diabetes mellitus without complication, unspecified whether intermediate project manager insulin use (HCC) Chronic hypertension affecting (HCC) Obesity in (HCC) BMI 40.0-44.9, adult (HCC) History of PCOS History of umbilical hernia 13 weeks gestation of (HCC) from Last 3 Months Results * SONOGRAM - COMPLETE (07/21/2024 3:28 PM MARKETING SALES REPRESENTATIVE) Only the most recent of2 resultswithin the [...] Placenta: Placental site: posterior, no previa. Placental [id number] os distance 49 mm Umbilical cord: Cord [...] 0 lb 7 oz EFW by Hadlock ([id number]) appropriate Growth Overview Exam date [place] BPD [...] echo at >/=24 weeks. Coding ====== Procedures 12022: US Preg Uterus >14 weeks 17410: US Preg Uterus Transvaginal [employer] PACS Anatomical Region Laterality Modality Other 07/21/2024 3:28 PM MARKETING SALES REPRESENTATIVE Kody Mark MD [facility] ORDERABLES from Last 3 Months Care Teams Chronometer Assembler And Adjuster Relationship Specialty Start Date End Date Unknown, Provider PCP - General 06/16/24
--- OUTSIDE RECORDS SUMMARY | 2024-08-10 18:33 | XMS_ITS | Clinical Summary ---
Author Organization [facility] Address [address] [place] [address] Phone Care Team Providers Care Receptionist Scheduler Name Role Phone Kareem Domingo MD Primary Care Provider [phone] Allergies Active Allergy Reactions Criticality Noted Date [...] on file Legal Sex Female 12:36 AM ABLE BODIED TANKERMAN Gender Identity Not on file Sexual Orientation Not on file Last Filed Vital Signs Vital Sign Reading Time Taken Comments Blood Pressure 154/87 08/04/2023 4:08 AM CDT Pulse 96 08/04/2023 12:44 AM ABLE BODIED TANKERMAN Temperature 36.2 C (97.2 F) 08/04/2023 12:44 AM ABLE BODIED TANKERMAN Respiratory Rate 18 08/04/2023 12:44 AM ABLE BODIED TANKERMAN Oxygen Saturation 97% 08/04/2023 12:44 AM ABLE BODIED TANKERMAN Inhaled Oxygen Concentration - - Weight 111.1 kg (245 lb) 08/04/2023 12:44 AM ABLE BODIED TANKERMAN Height 167.6 cm (5' 6 ) 08/04/2023 12:44 AM ABLE BODIED TANKERMAN Body Mass Index 39.54 08/04/2023 12:44 AM ABLE BODIED TANKERMAN Plan of Treatment Health Maintenance Due Date [...] to complete this topic Insurance Care Teams Receptionist Scheduler Relationship Specialty Start Date End Date Kareem Domingo MD [address] [place] [id number] PCP - General Family Medicine 08/04/23
== END 2024-08-10 17:00 | disposition home or self-care (01) ==
LOC: ANHOBOP 15:58 → ANHOBPP 15:59
PROVIDERS: PCP Emergency Medicine; Visit Provider Student in an Organized Health Care Education/Training Program
DX: O13.9 Gestational [pregnancy-induced] hypertension without significant proteinuria, unspecified trimester (principal); Z3A.00 Weeks of gestation of pregnancy not specified
CPT/HCPCS: 36415; 80053; 81003; 82570; 84156; 84550; 85025